=== PATIENT | female | born 1935 | race Caucasian/White ===

== ENCOUNTER → 2017-01-09 | Outpatient (CLI) | payer MEDICARE, BC ==
[2017-01-09 10:06] LABS: Basophils # (A) 0.1 k/uL (0-0.2); Basophils % (A) 1 %; CH 30.8; CHCM 33.3; Eosinophils # (A) 0.3 k/uL (0-0.7); Eosinophils % (A) 3 %; HCT 38.7 % (34.0-46.0); HDW 2.43; HGB 12.5 gm/dL (11.4-16.0); Luc # (Auto) 0.25; Luc % (Auto) 3; Lymphocytes % (A) 35 %; MCHC 32.3 g/dL (31.0-37.0); MCV 92.8 fL (80.0-100.0); Mean Platelet Volume 6.6; Monocytes # (A) 0.6 k/uL (0-1.0); Monocytes % (A) 7 %; Neutrophils # (A) 4.6 k/uL (1.3-7.7); Neutrophils % (A) 52 %; RBC 4.17 m/uL (3.80-5.40); WBC 8.8 k/uL (3.8-10.6); WBC (Perox) 8.71
[2017-01-09 10:24] LABS: ALT 28 U/L (9-52); AST 30 U/L (14-36); Alkaline Phosphatase 97 U/L (38-126); Anion Gap 9 mmol/L; Blood Urea Nitrogen 17 mg/dL (7-17); Calcium 9.3 mg/dL (8.4-10.2); Carbon Dioxide 31 mmol/L (22-30); Chloride 95 mmol/L (98-107); Cholesterol 191 mg/dL (<200); Glucose 102 mg/dL (74-99); HDL Cholesterol 38 mg/dL (40-60); Non-African American GFR(MDRD) 54 (>60 ml/min/1.73 sqM); Potassium 3.4 mmol/L (3.5-5.1); Sodium 135 mmol/L (137-145); Total Bilirubin 0.7 mg/dL (0.2-1.3); Total Protein 7.2 g/dL (6.3-8.2); Triglycerides 122 mg/dL (<150)
[2017-01-09 12:03] LABS: Hemoglobin A1C 6.1 % (4.2-6.1)
== END | disposition home or self-care (01) ==
LOC: LABWHC1 09:13
PROVIDERS: ATTEND Internal Medicine Critical Care Medicine
DX: E78.5 Hyperlipidemia, unspecified (principal); E11.9 Type 2 diabetes mellitus without complications; J44.9 Chronic obstructive pulmonary disease, unspecified; I10 Essential (primary) hypertension; E03.9 Hypothyroidism, unspecified
CPT/HCPCS: 36415; 80053; 80061; 82306; 83036; 84439; 84443; 85025

== ENCOUNTER 2017-10-26 03:31 | Inpatient (IN) | payer MEDICARE, BC ==
--- NOTE | 2017-10-26 03:37 | ED ---
General Adult HPI - General Stated complaint: Hypoglycemia/Fall Time Seen by Provider: 10/26/17 03:35 Source: RN notes reviewed, old records reviewed - History of Present Illness Initial comments: This is a 81-year-old female to the ER for evaluation of low blood sugar. Patient's brought in for evaluation by EMS secondary 0.1 foot. Patient has history of diabetes on insulin. No oral hypo-glycemic. Patient states she's been feeling fine today nausea vomiting diarrhea no chest pain or shortness of breath. Patient states she did eat today is normal. Patient did pull her life alert after falling secondary low blood sugar. Patient on EMS arrival had low blood sugar did improve with glucose replacement. Patient is time is no complaints - Related Data Home Medications Medication Instructions Recorded Confirmed Aspirin 81 mg PO DAILY 10/26/17 10/26/17 Atenolol 100 mg PO DAILY 10/26/17 10/26/17 Cholecalciferol [Vitamin D3] 3,000 unit PO DAILY 10/26/17 10/26/17 Furosemide [Lasix] 20 mg PO DAILY 10/26/17 10/26/17 Insulin NPH Hum/Reg Insulin Hm 55 unit SQ BID 10/26/17 10/26/17 [NovoLIN 70-30 100 UNIT/ML VIAL] Isosorbide Mononitrate [Isosorbide 30 mg PO DAILY 10/26/17 10/26/17 Mononitrate ER] Levothyroxine Sodium [Synthroid] 125 mcg PO DAILY 10/26/17 10/26/17 Potassium Chloride [Klor-Con 20] 20 meq PO DAILY 10/26/17 10/26/17 Allergies Allergy/AdvReac Type Severity Reaction Status Date / Time Penicillins Allergy Unknown Verified 10/26/17 03:47 morphine AdvReac Hallucinati Verified 10/26/17 03:47 ons Review of Systems ROS Statement: Those systems with pertinent positive or pertinent negative responses have been documented in the HPI. ROS Other: All systems not noted in ROS Statement are negative. General Exam General appearance: alert, in no apparent distress Head exam: Present: atraumatic, normocephalic, normal inspection Eye exam: Present: normal appearance, PERRL, EOMI. Absent: scleral icterus, conjunctival injection, periorbital swelling ENT exam: Present: normal exam, mucous membranes moist Neck exam: Present: normal inspection. Absent: tenderness, meningismus, lymphadenopathy Respiratory exam: Present: normal lung sounds bilaterally. Absent: respiratory distress, wheezes, rales, rhonchi, stridor Cardiovascular Exam: Present: regular rate, normal rhythm, normal heart sounds. Absent: systolic murmur, diastolic murmur, rubs, gallop, clicks GI/Abdominal exam: Present: soft, normal bowel sounds. Absent: distended, tenderness, guarding, rebound, rigid Extremities exam: Present: normal inspection, full ROM, normal capillary refill. Absent: tenderness, pedal edema, joint swelling, calf tenderness Back exam: Present: normal inspection Neurological exam: Present: alert, oriented X3, CN II-XII intact Psychiatric exam: Present: normal affect, normal mood Skin exam: Present: warm, dry, intact, normal color. Absent: rash Course Vital Signs 10/26/17 03:38 Temperature 98.4 F Pulse Rate 57 L Respiratory 18 Rate Blood Pressure 175/77 O2 Sat by Pulse 97 Oximetry - Reevaluation(s) Reevaluation #1: 10/26/17 03:36 Recheck blood sugar 64, patient given oral intake, sugar, juice, sandwich Reevaluation #2: 10/26/17 04:28 Patient remains awake and alert, is able to eat here in the emergency room EKG Findings - EKG Comments: EKG Findings:: EKG shows normal sinus MRSA 5, [place] 2, QRS 86, QTc 417 Medical Decision Making - Medical Decision Making 82 female the ER status post fall secondary to hypoglycemia. Head injury. CT negative. Patient is able to eat, blood sugar is improved, patient will be discharged - Lab Data Lab Results 10/26/17 Range/Units 03:34 POC Glucose (mg/dL) 64 L (75-99) mg/dL POC Glu Product Marketing Executive ID Cathleen Lara - Radiology Data Radiology results: report reviewed (CT brain C-spine x-ray hip are negative for traumatic injury), image reviewed Disposition Clinical Impression: Hypoglycemia, Fall, Head injury Disposition: HOME SELF-CARE Condition: Good Instructions: Hypoglycemia in a Person with Diabetes (ED), Head Injury (ED) Referrals: Neymar Mcgill DO [Primary Care Provider] - 1-2 days
[2017-10-26 03:55] LABS: Glucose,Whole Blood 64 mg/dL (75-99)
[2017-10-26 04:31] LABS: Glucose,Whole Blood 80 mg/dL (75-99)
--- NOTE | 2017-10-26 04:58 | CT ---
EXAM: CT Head Without Intravenous Contrast CLINICAL HISTORY: Status post fall with trauma to the back of the head. Reason: pain TECHNIQUE: Axial computed tomography images of the head/brain without intravenous contrast. DLP is 1167.70 mGy-cm. This CT exam was performed using one or more of the following dose reduction techniques: automated exposure control, adjustment of the mA and/or kV according to patient size, and/or use of iterative reconstruction technique. COMPARISON: Intracranial MRA 04/29/2014. FINDINGS: Brain: Age related atrophic changes are seen. Patchy and confluent areas of decreased attenuation are seen involving the bilateral periventricular and subcortical white matter consistent with microangiopathy, similar to prior study. No hemorrhage. Ventricles: Unremarkable. No ventriculomegaly. Bones/joints: Hyperostosis frontalis interna is noted. No acute fracture. Soft tissues: Unremarkable. Sinuses: Chronic left maxillary sinusitis is suggested. Mastoid air cells: Unremarkable as visualized. No mastoid effusion. IMPRESSION: 1. No ICH, mass effect or edema. No skull fracture. 2. 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 3. Chronic left maxillary sinusitis suggested. EXAM: CT Cervical Spine Without Intravenous Contrast CLINICAL HISTORY: Status post fall with trauma to the back of the head. TECHNIQUE: Axial computed tomography images of the cervical spine without intravenous contrast. CTDI is mGy and DLP is 703.20 mGy-cm. This CT exam was performed using one or more of the following dose reduction techniques: automated exposure control, adjustment of the mA and/or kV according to patient size, and/or use of iterative reconstruction technique. COMPARISON: No relevant prior studies available. 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 Note is made of multilevel cervical spondylosis with varying degrees of central canal and foramina stenoses, most notable at C4-C5, C5-C6, C6-C7, and C7-T1. No acute fracture. Discs/spinal canal/neural foramina: See above. Soft tissues: No evidence of prevertebral soft tissue swelling. Vasculature: Left retropharyngeal carotid artery is noted. Esophagus: Aerated debris seen within the proximal esophagus raising concern for impending aspiration. Lung apices: Minimal pulmonary edema may be present. Other findings: Anemia is suggested. IMPRESSION: 1. No evidence of acute fracture or traumatic malalignment. 2. Cervical spondylosis with varying degrees of central canal and foramina stenoses. MRI of the cervical spine may be obtained for further evaluation, if clinically indicated. 3. Aerated debris within the proximal esophagus raising concern for impending aspiration.
--- NOTE | 2017-10-26 05:07 | XR ---
EXAM: XR Left Hip With Pelvis When Performed, 2 or 3 Views CLINICAL HISTORY: Fall TECHNIQUE: Two or three views of the left hip, with pelvis when performed. COMPARISON: No relevant prior studies available. FINDINGS: Bones/joints: Subtle jagged lucency is seen in the subcapital left femoral neck, raising concern for a nondisplaced subcapital hip fracture. Mild/moderate narrowing of both femoroacetabular joints with bony productive changes suggesting osteoarthropathy. No evidence of dislocation. Soft tissues: Unremarkable. IMPRESSION: Subtle jagged lucency in the subcapital left femoral neck, raising concern for a nondisplaced subcapital left hip fracture. CT of the left hip recommended for further evaluation, if clinically indicated.
[2017-10-26 05:23] LABS: Glucose,Whole Blood 122 mg/dL (75-99)
[2017-10-26] MEDS ORDERED: LABETALOL 5 MG/ML VIAL MDV IVP STA (05:32)
[2017-10-26] MEDS ORDERED: cloNIDine HCL 0.2 MG TAB PO STA (05:48)
--- NOTE | 2017-10-26 06:31 | ED ---
Medical Decision Making - Medical Decision Making 82 female the ER status post fall. Patient having continued pain prior to discharge, patient's left hip x-ray does show possible lucency regarding fracture, since patient is unable to ambulate we'll get CAT scan to confirm if there is underlying fracture or not. (Dawson Howard) Patient was endorsed to me at our shift change pending CAT scan evaluation and results. CAT scan shows no acute findings of fracture. The x-ray of the foot does however show a fracture of the proximal third toe. Patient was still unable weight-bear patient will be admitted I did discuss the case with Dr. Miller. Patient will be admitted with orthopedic and neurological consultation. I did discuss this with the patient and family members or present. (Neymar Burgos ) - Lab Data Lab Results 10/26/17 10/26/17 10/26/17 Range/Units 03:34 04:29 05:11 POC Glucose (mg/dL) 64 L 80 122 H (75-99) mg/dL POC Glu Rn Pain Management Cathleen Roth, Cathleen Pedersen Disposition Clinical Impression: Hypoglycemia, Fall, Head injury, Failure to thrive, Toe fracture, left Disposition: ADMITTED IP TO THIS HOSP Condition: Stable Instructions: Hypoglycemia in a Person with Diabetes (ED), Head Injury (ED)
--- NOTE | 2017-10-26 06:55 | XR ---
EXAM: XR Left Foot Complete, 3 or More Views CLINICAL HISTORY: Pain after fall. TECHNIQUE: Frontal, lateral and oblique views of the left foot. COMPARISON: No relevant prior studies available. FINDINGS: Bones/joints: Acute minimally displaced fracture involving the base of the third proximal phalanx extending to the articular surface. Probable chronic deformity of the distal fourth metatarsal bone. Acute fracture cannot be definitively excluded. Probable small os trigonum. Os navicularis is noted. Small calcaneal spur seen. Posterior calcaneal spur is also noted. Osteopenia suggested. No dislocation. Soft tissues: Mild diffuse soft tissue swelling is seen overlying the foot. No radiopaque foreign body. IMPRESSION: 1. Acute minimally displaced fracture involving the base of the third proximal phalanx extending to the articular surface. 2. Probable chronic deformity of the distal fourth metatarsal bone. Acute fracture cannot be definitively excluded. Correlate with point tenderness.
--- NOTE | 2017-10-26 06:58 | XR ---
EXAM: XR Left Tibia and Fibula, 2 Views CLINICAL HISTORY: Pain after fall. TECHNIQUE: Frontal and lateral views of the left tibia and fibula. COMPARISON: No relevant prior studies available. FINDINGS: Bones/joints: Chronic fracture involving the proximal fibula. No dislocation. Soft tissues: Mild diffuse soft tissue swelling. No radiopaque foreign body. Vasculature: Mild/moderate vascular calcifications. IMPRESSION: No radiographic evidence of acute osseous injury.
--- NOTE | 2017-10-26 08:36 | CT ---
EXAMINATION TYPE: CT hip LT wo con DATE OF EXAM: 10/26/2017 COMPARISON: NONE HISTORY: Hypoglycemia/Fall CT DLP: 801 mGycm Automated exposure control for dose reduction was used. FINDINGS: There is atheromatous calcification of the arterial tree. Visualized soft tissues are other fink normal. There is degenerative disc disease and marked facet arthropathy in the lower lumbar spine. There is m ild degenerative change in the symphysis pubis. No acute fracture is seen. Hip joint is reasonably we ll-maintained. IMPRESSION: 1. NO ACUTE OSSEOUS LESION. 2. DEGENERATIVE CHANGE.
[2017-10-26] MEDS ORDERED: NALOXONE 0.4 MG/ML 1 ML VIAL IV PRN (10:39)
[2017-10-26] MEDS ORDERED: SODIUM CHLORIDE 0.9% 1,000 ML IV SCH (10:45)
[2017-10-26 11:39] VITALS: BMI 33.0
[2017-10-26 11:41] LABS: Glucose,Whole Blood 194 mg/dL (75-99)
[2017-10-26] MEDS: INSULIN ASPART 100 UNIT/ML 1 ML 10 ML VIAL SQ SCH ×3 (12:37→21:26)
--- NOTE | 2017-10-26 17:19 | P.CNNES ---
History of Present Illness Consult date: 10/26/17 Requesting physician: Magalys Miller Reason for Consult: Sciatica History of Present Illness: Patient is a pleasant 82-year-old female who is being evaluated by the neurology service on 10/26/2017 per the request of Dr. Valero for sciatica. Patient has a history of chronic low back pain with lumbar disc disease. Patient has history of diabetes on insulin. Patient states her blood sugar fell low at home and caused her to fall. Patient has life alert at home and she used it to alert the EMS. Patient's glucose was 64 on admission. Patient also reports hurting her left leg and hip in the fall. Patient had x-ray of the left hip and pelvis which showed questionable left femoral neck fracture. Patient had CT of the hip done which showed marked facet arthropathy in the lower lumbar spine but no acute changes. Patient had x-ray of the foot done which showed displaced fracture involving third toe of the left foot. Orthopedics has been consulted. CT of the head and neck were done due to fall. CT of the brain shows age-related atrophic changes. CT of the brain without any acute process. CT of the cervical spine shows no acute process but does show cervical spondylosis and foraminal stenosis. At the time of my evaluation , patient is resting comfortably in bed and appears to be in no acute distress. Review of Systems REVIEW OF SYSTEMS: Otherwise unremarkable and noncontributory. Past Medical History Past Medical History: Asthma, Diabetes Mellitus, Rheumatoid Arthritis (RA), Thyroid Disorder History of Any Multi-Drug Resistant Organisms: None Reported Past Surgical History: Bladder Surgery, Cholecystectomy, Hysterectomy Past Psychological History: No Psychological Hx Reported Smoking Status: Never smoker Past Alcohol Use History: Unable to Obtain Past Drug Use History: None Reported Medications and Allergies Home Medications Medication Instructions Recorded Confirmed Type Aspirin 81 mg PO DAILY 10/26/17 10/26/17 History Atenolol 100 mg PO DAILY 10/26/17 10/26/17 History Cholecalciferol [Vitamin D3] 3,000 unit PO DAILY 10/26/17 10/26/17 History Cyclobenzaprine [Flexeril] 10 mg PO TID 10/26/17 10/26/17 History Furosemide [Lasix] 20 mg PO DAILY 10/26/17 10/26/17 History Insulin NPH Hum/Reg Insulin Hm 55 unit SQ BID 10/26/17 10/26/17 History [NovoLIN 70-30 100 UNIT/ML VIAL] Isosorbide Mononitrate [Isosorbide 30 mg PO DAILY 10/26/17 10/26/17 History Mononitrate ER] Levothyroxine Sodium [Synthroid] 125 mcg PO DAILY 10/26/17 10/26/17 History Meloxicam [Mobic] 15 mg PO DAILY 10/26/17 10/26/17 History Potassium Chloride [Klor-Con 20] 20 meq PO DAILY 10/26/17 10/26/17 History aMILoride-HCTZ 5-50 mg [Moduretic 1 tab PO DAILY 10/26/17 10/26/17 History 5-50] Allergies Allergy/AdvReac Type Severity Reaction Status Date / Time Penicillins Allergy Unknown Verified 10/26/17 11:40 morphine AdvReac Hallucinati Verified 10/26/17 11:08 ons Physical Examination - Vital Signs Vital Signs: Vital Signs Temp Pulse Pulse Resp BP BP Pulse Ox 10/26/17 15:00 97.5 F L 60 16 154/72 95 10/26/17 11:15 97.4 F L 60 16 155/66 98 10/26/17 11:05 98.6 F 69 18 153/79 97 10/26/17 11:04 97.4 F L 60 20 155/68 10/26/17 08:16 61 17 169/69 96 10/26/17 08:10 79 18 149/77 96 10/26/17 06:04 50 L 18 185/77 100 10/26/17 05:42 55 L 18 194/77 96 10/26/17 03:38 98.4 F 57 L 18 175/77 97 Intake and Output 10/26/17 10/26/17 10/26/17 06:59 14:59 22:59 Intake Total 940 Balance 940 Intake: Intake, IV Titration 160 Amount Sodium Chloride 0.9% 1, 160 000 ml @ 80 mls/hr IV . [id number] [facility] Rx#:[id number] Oral 780 Other: Voiding Method Bedside Commode Bedpan # Voids 1 Weight 99.79 kg 95.708 kg Patient Weight 10/27/17 06:59 Weight 95.708 kg PHYSICAL EXAM: GENERAL APPEARANCE: Patient is a well-developed, female who appears to be in no acute distress. HEENT: Normocephalic, atraumatic, no facial asymmetry is seen. Neck is supple with no masses felt. CARDIOVASCULAR: Regular rate and rhythm. ABDOMEN: Nontender, nondistended. EXTREMITIES: Show no edema or clubbing. NEUROLOGICAL EXAM: Patient is awake, alert, and oriented 3. Speech and language are normal. Strength is 4/5 in left lower extremity and full in all other extremities. Sensory deficit to left lower extremity to light touch. No facial asymmetry on cranial nerve testing. No tremors or seizure-like activity noted. Results - Laboratory Findings Abnormal Lab Findings: Abnormal Labs 10/26/17 10/26/17 10/26/17 03:34 05:11 11:29 POC Glucose (mg/dL) 64 L 122 H 194 H Assessment and Plan Plan: Impression: 1. Sciatica 2. Diabetes mellitus 3. Fall 4. Left third toe fracture 5. Lumbago 6. Cervicalgia Recommendation: Patient has symptoms of left SI joint pain as well as left sciatic nerve distribution pain. I recommend a nonsteroidal anti-inflammatory drug such as Mobic 15 mg by mouth daily and to start on a neuropathic drug such as Neurontin 300 mg by mouth daily at bedtime. Neurontin can be titrated up to 3 times a day dosing. Titration can be achieved as an outpatient. Patient can follow up in the clinic for NCS/EMG testing. Patient may benefit from SI joint injection as an outpatient. Continue current management per medicine and orthopedics. No further neurological workup needed at this time. I will continue to follow with you on an as-needed basis. Feel free to call with any questions or concerns. Thank you for allowing me to participate in the care of your patient. Feel free to call with any questions or concerns. I performed an examination of the patient and discussed the management with the OYSTER SHUCKER. I have reviewed the OYSTER SHUCKER notes and agree with the findings and plan of care.
[2017-10-26] MEDS ORDERED: INSULIN NPH/REG INSULIN 70/30 300 UNIT/3 ML VIAL SQ SCH (17:30)
[2017-10-26 17:33] LABS: Glucose,Whole Blood 227 mg/dL (75-99)
[2017-10-26 17:46] LABS: Basophils % (A) 1 %; Eosinophils # (A) 0.2 k/uL (0-0.7); Eosinophils % (A) 2 %; HCT 35.7 % (34.0-46.0); HGB 11.4 gm/dL (11.4-16.0); Lymphocytes % (A) 22 %; MCH 29.9 pg (25.0-35.0); MCHC 32.1 g/dL (31.0-37.0); MCV 93.4 fL (80.0-100.0); Mean Platelet Volume 6.4; Monocytes # (A) 0.5 k/uL (0-1.0); Monocytes % (A) 6 %; Neutrophils # (A) 6.3 k/uL (1.3-7.7); Neutrophils % (A) 69 %; Platelet Count 313 k/uL (150-450); RBC 3.82 m/uL (3.80-5.40); RDW 12.7 % (11.5-15.5); WBC 9.2 k/uL (3.8-10.6)
[2017-10-26] MEDS: INSULIN NPH/REG INSULIN 70/30 300 UNIT/3 ML VIAL SQ SCH (17:51)
[2017-10-26 17:59] LABS: ALT 26 U/L (9-52); AST 32 U/L (14-36); Albumin 3.5 g/dL (3.5-5.0); Alkaline Phosphatase 105 U/L (38-126); Anion Gap 7 mmol/L; Blood Urea Nitrogen 16 mg/dL (7-17); Calcium 9.1 mg/dL (8.4-10.2); Carbon Dioxide 33 mmol/L (22-30); Chloride 91 mmol/L (98-107); Glucose 206 mg/dL (74-99); Magnesium 1.7 mg/dL (1.6-2.3); Potassium 3.4 mmol/L (3.5-5.1); Sodium 131 mmol/L (137-145); Total Bilirubin 0.8 mg/dL (0.2-1.3); Total Protein 6.5 g/dL (6.3-8.2)
--- NOTE | 2017-10-26 18:01 | HP ---
HISTORY AND PHYSICAL DATE OF SERVICE: 10/26/2017 CHIEF COMPLAINTS: Fall and apparent hypoglycemia. HISTORY OF PRESENT ILLNESS: This 82-year-old woman with a past medical history of multiple medical problems, including diabetes mellitus, asthma, hypertension, rheumatoid arthritis had apparently passed out. The patient does not remember the antecedents. EMS came and it was found that the patient had low blood sugar. Patient admitted for further evaluation of blood sugars and glucose administered. There is no history of fever, rigors. No history of headache, loss conscious, seizures. After admission multiple x-rays were done. The foot x-ray shows acute minimally displaced fracture involving the base of the 3rd proximal toe, proximal phalanx extending to the articular surface and chronic deformity of the distal 4th metatarsal. PAST MEDICAL HISTORY: History of diabetes mellitus type 2, history of asthma, history of rheumatoid arthritis, hypothyroidism, bladder surgery, cholecystectomy. MEDICATIONS PRIOR TO ADMISSION: Include: 1. Flexeril 10 mg p.o. t.i.d. 2. Moduretic 1 tab p.o. daily. 3. Klor-Con 20 mg p.o. daily. 4. Mobic 15 mg p.o. daily. 5. Synthroid 120 mcg p.o. daily. 6. Imdur 30 mg p.o. daily. 7. Novolin 70/30, 55 units subcu b.i.d. 8. Lasix 20 mg daily. 9. Vitamin D3 3000 units. 10.Atenolol 100 mg p.o. daily. 11.Aspirin 81 mg daily. ALLERGIES: PENICILLIN, MORPHINE. FAMILY HISTORY: No history of heart disease, strokes in the family. SOCIAL HISTORY: No history of alcohol intake. REVIEW OF SYSTEMS: ENT: Diminished hearing, diminished vision. CARDIOVASCULAR: No angina, palpitations. RESPIRATORY: As mentioned earlier. GI: No nausea or vomiting. : No dysuria. NERVOUS: As mentioned earlier. ALLERGY/IMMUNOLOGY: No asthma or hay fever. MUSCULOSKELETAL: As mentioned earlier. HEMATOLOGY/ONCOLOGY: No history of anemia. ENDOCRINE: Diabetes mellitus. CONSTITUTIONAL: As mentioned earlier. DERMATOLOGY: Negative. RHEUMATOLOGY: Negative. PSYCHIATRY: As mentioned earlier. PHYSICAL EXAM: The patient is alert, oriented x3. Pulse of 60, blood pressure 150/60, respirations 16, temperature 97.4, pulse ox 98% room air. HEENT: Conjunctivae normal. Oral mucosa moist. NECK: No jugular venous distention. No carotid bruits. No lymph node enlargement. CARDIOVASCULAR: S1, S2 muffled. RESPIRATORY: Breath sounds diminished in the bases. A few scattered rhonchi. No crackles. ABDOMEN: Soft, nontender. No mass palpable. LEGS: No edema. No swelling. NERVOUS SYSTEM: Higher functions as mentioned earlier. Moves all 4 limbs. No focal motor or sensory deficits. LYMPHATIC: No lymphadenopathy in neck or axillae. SKIN: No ulcer, rash or bleeding. LABS: At this time shows the glucose 64, 80, 122, 194. Other labs awaited. ASSESSMENT: 1. Syncope possibly secondary to hypoglycemia. 2. Hypoglycemia. 3. Fall with acute minimally displaced fracture involving the base of the 3rd phalanx extending to the articular structure. 4. Deformity of the 4th metatarsal bone. 5. History of diabetes mellitus. 6. History of asthma. 7. History of rheumatoid arthritis. 8. Hypothyroidism. 9. History of cholecystectomy. RECOMMENDATIONS AND DISCUSSION: In this 82-year-old who presented with multiple medical problems, will monitor the patient closely, continue to monitor for orthostatic hypotension. Also recommend monitoring blood sugars closely. The patient is hypoglycemic and the NPH dose will be cut to 50 b.i.d. and continue to monitor. Guarded prognosis. Further recommendations. See orders for further details. MMODL / IJN: [id number] /
[2017-10-26 19:38] LABS: Appearance,Urine Clear (Clear); Bacteria,Urine Rare /hpf; Bilirubin,Urine Negative (Negative); Blood,Urine Negative (Negative); Color,Urine Yellow; Glucose,Urine (UA) Negative (Negative); Ketones,Urine Negative (Negative); Leukocyte Esterase,Urine Moderate (Negative); Nitrite,Urine Negative (Negative); Protein,Urine Trace (Negative); RBC,Urine 2 /hpf (0-5); Squamous Epithelial Cell,Urine 1 /hpf (0-4); Urobilinogen,Urine <2.0 mg/dL (<2.0); WBC,Urine 10 /hpf (0-5)
[2017-10-26 20:20] LABS: Glucose,Whole Blood 203 mg/dL (75-99)
[2017-10-26] MEDS: CYCLOBENZAPRINE 10 MG TAB PO SCH (21:26)
[2017-10-27] MEDS ORDERED: ALBUTEROL NEBULIZED 2.5 MG/3 ML INHALATION PRN (00:01)
[2017-10-27 02:34] LABS: Glucose,Whole Blood 63 mg/dL (75-99)
[2017-10-27 02:34] LABS: Glucose,Whole Blood 82 mg/dL (75-99)
[2017-10-27] MEDS ORDERED: LEVOTHYROXINE 125 MCG TAB PO SCH (06:30)
[2017-10-27 07:10] LABS: Glucose,Whole Blood 103 mg/dL (75-99)
[2017-10-27] MEDS: INSULIN ASPART 100 UNIT/ML 1 ML 10 ML VIAL SQ SCH ×2 (07:26→12:42)
[2017-10-27] MEDS: INSULIN NPH/REG INSULIN 70/30 300 UNIT/3 ML VIAL SQ SCH (07:28)
[2017-10-27 07:35] LABS: Basophils # (A) 0.1 k/uL (0-0.2); Basophils % (A) 1 %; Eosinophils # (A) 0.4 k/uL (0-0.7); Eosinophils % (A) 5 %; HCT 32.4 % (34.0-46.0); HGB 10.4 gm/dL (11.4-16.0); Lymphocytes # (A) 2.4 k/uL (1.0-4.8); Lymphocytes % (A) 32 %; MCHC 32.1 g/dL (31.0-37.0); MCV 96.4 fL (80.0-100.0); Mean Platelet Volume 6.6; Monocytes # (A) 0.6 k/uL (0-1.0); Monocytes % (A) 8 %; Neutrophils % (A) 52 %; Platelet Count 285 k/uL (150-450); RBC 3.36 m/uL (3.80-5.40); RDW 12.6 % (11.5-15.5); WBC 7.6 k/uL (3.8-10.6)
[2017-10-27 07:57] LABS: Anion Gap 10 mmol/L; Blood Urea Nitrogen 15 mg/dL (7-17); Carbon Dioxide 31 mmol/L (22-30); Chloride 93 mmol/L (98-107); Glucose 91 mg/dL (74-99); Potassium 3.5 mmol/L (3.5-5.1); Sodium 134 mmol/L (137-145)
--- NOTE | 2017-10-27 08:45 | P.CNOR ---
History of Present Illness - HPI Consult date: 10/27/17 History of present illness: This is an 82-year-old female was admitted after a fall. Patient states on 10/25/2017 she had a low blood sugar which caused her to pass out. Patient states when she regained consciousness she pressed her life alert button which alerted EMS and her daughter to come to her house. Patient states she thinks she was down for 3 hours. Patient complains of soreness to the left leg. Patient states she has not been up and walking yet. Patient states her left foot is the most sore. Patient does complain of soreness to the left arm, but patient states she can move the left arm without difficulty. Patient denies any groin pain and states the hip is sore but she is able to move it. Patient states she did hit her head, but was evaluated in the emergency room and a CT was negative. Patient states she lives alone. Patient denies any headache, visual changes, fever/chills, numbness, weakness, tingling, abdominal pain, shortness of breath or chest pain. Review of Systems See HPI. Past Medical History Past Medical History: Asthma, Diabetes Mellitus, Rheumatoid Arthritis (RA), Thyroid Disorder History of Any Multi-Drug Resistant Organisms: None Reported Past Surgical History: Bladder Surgery, Cholecystectomy, Hysterectomy Past Psychological History: No Psychological Hx Reported Smoking Status: Never smoker Past Alcohol Use History: Unable to Obtain Past Drug Use History: None Reported Medications and Allergies Home Medications Medication Instructions Recorded Confirmed Type Aspirin 81 mg PO DAILY 10/26/17 10/26/17 History Atenolol 100 mg PO DAILY 10/26/17 10/26/17 History Cholecalciferol [Vitamin D3] 3,000 unit PO DAILY 10/26/17 10/26/17 History Cyclobenzaprine [Flexeril] 10 mg PO TID 10/26/17 10/26/17 History Furosemide [Lasix] 20 mg PO DAILY 10/26/17 10/26/17 History Insulin NPH Hum/Reg Insulin Hm 55 unit SQ BID 10/26/17 10/26/17 History [NovoLIN 70-30 100 UNIT/ML VIAL] Isosorbide Mononitrate [Isosorbide 30 mg PO DAILY 10/26/17 10/26/17 History Mononitrate ER] Levothyroxine Sodium [Synthroid] 125 mcg PO DAILY 10/26/17 10/26/17 History Meloxicam [Mobic] 15 mg PO DAILY 10/26/17 10/26/17 History Potassium Chloride [Klor-Con 20] 20 meq PO DAILY 10/26/17 10/26/17 History aMILoride-HCTZ 5-50 mg [Moduretic 1 tab PO DAILY 10/26/17 10/26/17 History 5-50] Allergies Allergy/AdvReac Type Severity Reaction Status Date / Time Penicillins Allergy Unknown Verified 10/26/17 11:40 morphine AdvReac Hallucinati Verified 10/26/17 11:08 ons Physical Examination On exam patient is alert and oriented 3 and in no acute distress. Patient is able to flex the left lower extremity at the hip and knee without difficulty. There is no pain in the left hip with log roll of the left lower extremity. There is some tenderness to palpation to the outside of the left hip, medial aspect of the left knee, to the medial and lateral malleoli of the left ankle, and over the MTP joint of the third toe left foot. There is some ecchymosis to the top of the left foot, medial aspect of the left knee. Calf is soft and nontender to palpation. There is no tenderness to palpation of the left upper extremity. Patient is able to lift the left arm above her head without pain or difficulty. Patient has full range of motion of the left elbow, wrist and hand. There is no tenderness to palpation to the right upper extremity or right lower extremity. Sensation intact bilateral upper and lower extremities. Patient has good range of motion of the head and neck without pain or difficulty. Neurovascular status and circulatory status are intact. Results X-rays of the left hip and pelvis show no definite acute fracture or dislocation. CT of the left hip is negative for fracture. X-rays of the left tib-fib are negative for any acute fracture or dislocation of the left knee, left tib-fib and left ankle. X-rays of the left foot show #1. Acute minimally displaced fracture involving the base of the third proximal phalanx extending to the articular surface. #2 probable chronic deformity of the distal fourth metatarsal bone. Acute fracture cannot be definitively. Correlate with point tenderness. - Labs Labs: Abnormal Lab Results - Last 24 Hours (Table) 10/26/17 10/26/17 10/26/17 Range/Units 11:29 17:27 17:37 RBC (3.80-5.40) m/uL Hgb (11.4-16.0) gm/dL Hct (34.0-46.0) % Sodium 131 L (137-145) mmol/L Potassium 3.4 L (3.5-5.1) mmol/L Chloride 91 L (98-107) mmol/L Carbon Dioxide 33 H (22-30) mmol/L Glucose 206 H (74-99) mg/dL POC Glucose (mg/dL) 194 H 227 H (75-99) mg/dL Urine Protein (Negative) Ur Leukocyte Esterase (Negative) Urine WBC (0-5) /hpf Urine Bacteria (None) /hpf 10/26/17 10/26/17 10/27/17 Range/Units 19:10 20:08 02:00 RBC (3.80-5.40) m/uL Hgb (11.4-16.0) gm/dL Hct (34.0-46.0) % Sodium (137-145) mmol/L Potassium (3.5-5.1) mmol/L Chloride (98-107) mmol/L Carbon Dioxide (22-30) mmol/L Glucose (74-99) mg/dL POC Glucose (mg/dL) 203 H 63 L (75-99) mg/dL Urine Protein Trace H (Negative) Ur Leukocyte Esterase Moderate H (Negative) Urine WBC 10 H (0-5) /hpf Urine Bacteria Rare H (None) /hpf 10/27/17 10/27/17 10/27/17 Range/Units 06:37 06:37 07:06 RBC 3.36 L (3.80-5.40) m/uL Hgb 10.4 L (11.4-16.0) gm/dL Hct 32.4 L (34.0-46.0) % Sodium 134 L (137-145) mmol/L Potassium (3.5-5.1) mmol/L Chloride 93 L (98-107) mmol/L Carbon Dioxide 31 H (22-30) mmol/L Glucose (74-99) mg/dL POC Glucose (mg/dL) 103 H (75-99) mg/dL Urine Protein (Negative) Ur Leukocyte Esterase (Negative) Urine WBC (0-5) /hpf Urine Bacteria (None) /hpf Microbiology - Last 24 Hours (Table) 02/24/18 19:10 Urine Culture - Preliminary Urine,Clean Catch H & H 10/26/17 10/27/17 Range/Units 17:37 06:37 Hgb 11.4 10.4 L (11.4-16.0) gm/dL Hct 35.7 32.4 L (34.0-46.0) % Result Diagrams: 10/27/17 06:37 10/27/17 06:37 Assessment and Plan (1) Fall Current Visit: Yes Status: Acute Code(s): W19.XXXA - UNSPECIFIED FALL, INITIAL ENCOUNTER SNOMED Code(s): 3013915 (2) Toe fracture, left Current Visit: Yes Status: Acute Code(s): S92.912A - UNSP FRACTURE OF LEFT TOE(S), INIT FOR CLOS FX SNOMED Code(s): 41212230 (3) Contusion of left hip Current Visit: Yes Status: Acute Code(s): S70.02XA - CONTUSION OF LEFT HIP, INITIAL ENCOUNTER SNOMED Code(s): 61143824 (4) Contusion of left knee Current Visit: Yes Status: Acute Code(s): S80.02XA - CONTUSION OF LEFT KNEE , INITIAL ENCOUNTER SNOMED Code(s): 85817112 Plan: #1. Walking boot ordered for left lower extremity. May coty tape the second and third or third and fourth digits of the left foot as well if desired. #2. Weight bearing as tolerated with walking boot using a walker at all times. #3. Keep left lower extremity elevated and ice the left hip, knee and foot. #4. No surgical intervention planned at this time. Patient may follow up as an outpatient with [facility]. #5. We'll continue to follow the patient closely during her hospital stay.
[2017-10-27] MEDS ORDERED: ASPIRIN 81 MG PO SCH (09:00)
[2017-10-27] MEDS ORDERED: FUROSEMIDE 20 MG TAB PO SCH (09:00)
[2017-10-27] MEDS ORDERED: aMILoride-HCTZ 5-50 mg 1 EACH TAB PO SCH (09:00)
[2017-10-27] MEDS ORDERED: ATENOLOL 50 MG TAB PO SCH (09:00)
[2017-10-27] MEDS ORDERED: POTASSIUM CHLORIDE ER 20 MEQ TAB.ER PO SCH (09:00)
[2017-10-27] MEDS ORDERED: ISOSORBIDE MONONITRATE ER 30 MG TAB.ER.24H PO SCH (09:00)
[2017-10-27] MEDS: CYCLOBENZAPRINE 10 MG TAB PO SCH (09:19)
[2017-10-27 11:37] LABS: Glucose,Whole Blood 139 mg/dL (75-99)
[2017-10-27] MEDS ORDERED: CHOLECALCIFEROL 1,000 UNIT TAB PO SCH (12:00)
[2017-10-27 12:23] VITALS: BP 161/52; PULSE 54; RESP 18; TEMP 98.2
--- NOTE | 2017-10-28 09:55 | DS ---
DISCHARGE SUMMARY DATE OF SERVICE: 10/27/2017. FINAL DIAGNOSES: 1. Syncope possibly secondary to hypoglycemia. 2. Hypoglycemia. 3. Fall with acute minimally displaced fracture involving the base of the phalanx into the articular surface. 4. Deformity of the 4th metatarsal bone. 5. History of diabetes type 2. 6. History of asthma. 7. History of rheumatoid arthritis. 8. Hypothyroidism. 9. History of cholecystectomy. DISCHARGE DISPOSITION: The patient is being discharged in stable condition with guarded prognosis. HISTORY OF PRESENT ILLNESS: This 82-year-old woman with a past medical history of multiple medical problems , being followed by Dr. Mcgill in the outpatient setting was admitted with syncope, possibly hypoglycemia. Patient treated conservatively and improved significantly. Orthopedics saw the patient and recommended closely follow with [facility] in the outpatient setting. On exam, vitals are stable. Cardiovascular: S1, S2 muffled. Abdomen soft. Nervous system: No focal deficits. DISCHARGE INSTRUCTIONS: 1. Discharge diet cardiac diet. 2. Activity limited until followup. 3. Follow up with Dr. Mcgill in 2-3 days. 4. Follow up with Orthopedic surgery as mentioned earlier. 5. Visiting nurse was being arranged. MEDICATIONS ARE: As follows home medications are: 1. Tylenol 500 mg q.6h p.r.n. 2. Moduretic 1 p.o. daily. 3. Aspirin 81 mg. 4. Atenolol 5 mg p.o. daily. 5. Vitamin D3 3000 daily. 6. Flexeril 10 mg p.o. t.i.d. 7. Lasix 20 mg p.o. daily. 8. NovoLog a.c. and q.h.s. scale. 9. NPH 50 subcu b.i.d. 10.Imdur 30 mg p.o. daily. 11.Synthroid 100 mcg p.o. daily. 12.Mobic 15 mg p.o. daily. 13.Klor-Con 20 mEq p.o. daily. Once again, the patient is being discharged in stable condition with guarded prognosis. MMODL / IJN: [id number] / MTDD
== END 2017-10-27 13:47 | disposition home health service (06) | DRG 639 ==
LOC: EC 03:31 → 3SUR 10:40
PROVIDERS: ADMIT Internal Medicine; ATTEND Internal Medicine
DX: E11.649 Type 2 diabetes mellitus with hypoglycemia without coma (principal); S09.90XA Unspecified injury of head, initial encounter; M06.9 Rheumatoid arthritis, unspecified; M48.02 Spinal stenosis, cervical region; E03.9 Hypothyroidism, unspecified; I10 Essential (primary) hypertension; J45.909 Unspecified asthma, uncomplicated; M47.812 Spondylosis without myelopathy or radiculopathy, cervical region; M54.40 Lumbago with sciatica, unspecified side; R62.7 Adult failure to thrive; S70.02XA Contusion of left hip, initial encounter; S80.02XA Contusion of left knee, initial encounter; S92.502A Displaced unspecified fracture of left lesser toe(s), initial encounter for closed fracture; G89.29 Other chronic pain; M51.36 Other intervertebral disc degeneration, lumbar region; Z79.1 Long term (current) use of non-steroidal anti-inflammatories (NSAID); Z79.4 Long term (current) use of insulin; Z79.82 Long term (current) use of aspirin; Z79.899 Other long term (current) drug therapy; Z88.5 Allergy status to narcotic agent; Z88.0 Allergy status to penicillin; Z90.49 Acquired absence of other specified parts of digestive tract; Z90.710 Acquired absence of both cervix and uterus; W19.XXXA Unspecified fall, initial encounter; Y92.9 Unspecified place or not applicable
CPT/HCPCS: 36415; 70450; 72125; 73502; 80048; 80053; 81001; 83735; 85025; 87086; 93005; 99285

== ENCOUNTER → 2018-01-17 | Outpatient (CLI) | payer MEDICARE, BC ==
[2018-01-17 08:01] LABS: Basophils % (A) 0 %; Eosinophils % (A) 1 %; HCT 37.5 % (34.0-46.0); HGB 12.4 gm/dL (11.4-16.0); Lymphocytes # (A) 2.5 k/uL (1.0-4.8); Lymphocytes % (A) 31 %; MCH 29.9 pg (25.0-35.0); MCV 90.8 fL (80.0-100.0); Mean Platelet Volume 6.8; Monocytes # (A) 0.6 k/uL (0-1.0); Monocytes % (A) 8 %; Neutrophils # (A) 4.8 k/uL (1.3-7.7); Neutrophils % (A) 59 %; Platelet Count 357 k/uL (150-450); RBC 4.13 m/uL (3.80-5.40); RDW 12.5 % (11.5-15.5); WBC 8.2 k/uL (3.8-10.6)
[2018-01-17 08:15] LABS: Albumin 3.9 g/dL (3.5-5.0); Calcium 9.4 mg/dL (8.4-10.2); Potassium 3.7 mmol/L (3.5-5.1); Total Bilirubin 0.6 mg/dL (0.2-1.3)
[2018-01-17 08:32] LABS: T4, Free (Free Thyroxine) 1.74 ng/dL (0.78-2.19)
[2018-01-17 19:04] LABS: Hemoglobin A1C 7.3 % (4.0-6.0)
== END | disposition home or self-care (01) ==
LOC: LABWHC1 07:19
PROVIDERS: ATTEND Internal Medicine Critical Care Medicine
DX: E55.9 Vitamin D deficiency, unspecified (principal); E11.9 Type 2 diabetes mellitus without complications; E03.9 Hypothyroidism, unspecified; I10 Essential (primary) hypertension; J44.9 Chronic obstructive pulmonary disease, unspecified; E78.5 Hyperlipidemia, unspecified
CPT/HCPCS: 36415; 80053; 80061; 82306; 83036; 84439; 84443; 85025

== ENCOUNTER → 2018-07-21 | Outpatient (CLI) | payer MEDICARE, BC ==
[2018-07-21 19:09] LABS: Hemoglobin A1C 7.3 % (4.0-6.0)
== END | disposition home or self-care (01) ==
LOC: LABWHC1 07:59
PROVIDERS: ATTEND Internal Medicine Critical Care Medicine
DX: E11.40 Type 2 diabetes mellitus with diabetic neuropathy, unspecified (principal)
CPT/HCPCS: 36415; 82947; 83036

== ENCOUNTER → 2019-03-17 | Outpatient (CLI) | payer MEDICARE, BC ==
[2019-03-17 08:30] LABS: Basophils % (A) 0 %; Eosinophils # (A) 0.2 k/uL (0-0.7); Eosinophils % (A) 2 %; HGB 11.7 gm/dL (11.4-16.0); Lymphocytes # (A) 1.7 k/uL (1.0-4.8); Lymphocytes % (A) 19 %; MCH 31.1 pg (25.0-35.0); MCHC 33.3 g/dL (31.0-37.0); MCV 93.4 fL (80.0-100.0); Mean Platelet Volume 6.5; Monocytes # (A) 0.5 k/uL (0-1.0); Monocytes % (A) 6 %; Neutrophils # (A) 6.3 k/uL (1.3-7.7); Neutrophils % (A) 71 %; Platelet Count 305 k/uL (150-450); RBC 3.75 m/uL (3.80-5.40); RDW 12.6 % (11.5-15.5)
[2019-03-17 12:32] LABS: African American GFR (CKD) 59.5 (60.0-200.0); Albumin/Globulin Ratio 1.74 (1.60-3.17); Anion Gap 10.5 mmol/L (4.00-12.00); Calcium 9.3 mg/dL (8.7-10.3); Carbon Dioxide 31.5 mmol/L (21.6-31.8); Globulin 2.3 g/dL (1.6-3.3); LDL Cholesterol,Calculated 122.8 mg/dL (0.0-131.0); Potassium 3.4 mmol/L (3.5-5.5); Total Bilirubin 0.9 mg/dL (0.2-1.2); Total Protein 6.3 g/dL (6.2-8.2); VLDL Calculation 18.2 mg/dL (5.00-40.00)
[2019-03-17 12:39] LABS: T4, Free (Free Thyroxine) 1.5 ng/dL (0.80-1.80)
[2019-03-17 14:35] LABS: Hemoglobin A1C 6.5 % (4.0-6.0)
== END | disposition home or self-care (01) ==
LOC: LABWHC1 07:44
PROVIDERS: ATTEND Internal Medicine Critical Care Medicine
DX: E55.9 Vitamin D deficiency, unspecified (principal); E78.5 Hyperlipidemia, unspecified; E03.9 Hypothyroidism, unspecified; E11.9 Type 2 diabetes mellitus without complications; I10 Essential (primary) hypertension
CPT/HCPCS: 36415; 80053; 80061; 82306; 83036; 84439; 84443; 85025

== ENCOUNTER 2019-05-17 07:39 | Inpatient (IN) | payer MEDICARE, BC ==
--- NOTE | 2019-05-17 07:58 | ED ---
Lower Extremity Injury HPI - General Chief Complaint: Extremity Injury, Lower Stated Complaint: fall/foot pain Time Seen by Provider: 05/17/19 07:39 Source: patient, EMS, RN notes reviewed Mode of arrival: EMS Limitations: no limitations - History of Present Illness Initial Comments: This is a pleasant 84-year-old female who presents by EMS with complaints of right lower extremity pain specifically the ball of her foot after apparently falling out of bed last night. She states she may have also had right-sided face she has chronic pain but denies any pain never head neck back or other extremities other than her usual pain she is complaining of pain to the right foot and ankle. She was demonstrating apparently pain with any type of ambulation. No other complaints at this time. Headaches dizziness blurry vision loss of function to the upper or lower extremities reported. MD Complaint: ankle injury, foot injury, fall - Related Data Home Medications Medication Instructions Recorded Confirmed Aspirin 81 mg PO DAILY 10/26/17 05/17/19 Atenolol 100 mg PO DAILY 10/26/17 05/17/19 Cholecalciferol [Vitamin D3 (25 1,000 unit PO TID 10/26/17 05/17/19 Mcg = 1000 Iu)] Furosemide [Lasix] 20 mg PO DAILY 10/26/17 05/17/19 Insulin NPH Hum/Reg Insulin Hm 65 unit SQ BID 10/26/17 05/17/19 [NovoLIN 70-30 100 UNIT/ML VIAL] Isosorbide Mononitrate [Isosorbide 30 mg PO DAILY 10/26/17 05/17/19 Mononitrate ER] Levothyroxine Sodium [Synthroid] 125 mcg PO DAILY 10/26/17 05/17/19 Potassium Chloride [Klor-Con 20] 20 meq PO DAILY 10/26/17 05/17/19 aMILoride-HCTZ 5-50 mg [Moduretic 1 tab PO DAILY 10/26/17 05/17/19 5-50] Ibuprofen [Motrin] 800 mg PO Q6H PRN 05/17/19 05/17/19 Vit C/E/Zn/Coppr/Lutein/Zeaxan 1 cap PO BID 05/17/19 05/17/19 [Preservision Areds 2 Softgel] Allergies Allergy/AdvReac Type Severity Reaction Status Date / Time Penicillins Allergy Unknown Verified 05/17/19 09:04 morphine AdvReac Hallucinati Verified 05/17/19 09:04 ons Review of Systems ROS Statement: Those systems with pertinent positive or pertinent negative responses have been documented in the HPI. ROS Other: All systems not noted in ROS Statement are negative. Past Medical History Past Medical History: Asthma, Diabetes Mellitus, Hypertension, Rheumatoid Arthritis (RA), Thyroid Disorder History of Any Multi-Drug Resistant Organisms: None Reported Past Surgical History: Bladder Surgery, Cholecystectomy, Hysterectomy Additional Past Surgical History / Comment(s): thyroid removed Past Psychological History: No Psychological Hx Reported Smoking Status: Never smoker Past Alcohol Use History: Unable to Obtain Past Drug Use History: None Reported General Exam - General Exam Comments Initial Comments: This is a well-developed well-nourished awake alert oriented 3 female demonstrate a Francesco Coma Scale of 15 Limitations: no limitations General appearance: alert, in no apparent distress Head exam: Present: atraumatic, normocephalic, normal inspection Eye exam: Present: normal appearance, PERRL, EOMI. Absent: scleral icterus, conjunctival injection, periorbital swelling ENT exam: Present: normal exam, mucous membranes moist Neck exam: Present: normal inspection, full ROM, other (No stridor JVD or bruits). Absent: tenderness, meningismus, lymphadenopathy Respiratory exam: Present: normal lung sounds bilaterally. Absent: respiratory distress, wheezes, rales, rhonchi, stridor Cardiovascular Exam: Present: normal rhythm, bradycardia, normal heart sounds. Absent: systolic murmur, diastolic murmur, rubs, gallop, clicks GI/Abdominal exam: Present: soft, normal bowel sounds. Absent: distended, tenderness, guarding, rebound, rigid Extremities exam: Present: full ROM, tenderness, normal capillary refill, other (A splint was applied to the right foot and ankle by EMS and did undo this. Patient does demonstrate tenderness palpation of the first metatarsophalangeal joint some mild ankle pain also proximal fibula pain in the right to palpation no step-off or crepitation noted no answer compromise noted. Capillary refill less than 2 seconds.). Absent: pedal edema, joint swelling, calf tenderness Back exam: Present: normal inspection Neurological exam: Present: alert, oriented X3, CN II-XII intact Psychiatric exam: Present: normal affect, normal mood Skin exam: Present: warm, dry, intact, normal color. Absent: rash Course Vital Signs 05/17/19 05/17/19 07:42 08:33 Temperature 98.5 F Pulse Rate 50 L 65 Respiratory 18 16 Rate Blood Pressure 176/102 167/61 O2 Sat by Pulse 97 95 Oximetry - Reevaluation(s) Reevaluation #1: 05/17/19 10:09 I did discuss the case with Rozina who is covering Dr. Benz today. Patient will be admitted for evaluation and treatment Procedures - Orthopedic Splinting/Casting Injury #1 Side: right Lower Extremity Injury Location: short leg, ankle, foot Lower Extremity Immobilizer: posterior splint, stirrup splint Additional Comments: The patient was resistant to neutral positioning of the right foot during splinting. Medical Decision Making - Medical Decision Making I did discuss findings with the patient. Patient be admitted for treatment and evaluation. Medical consultation will be obtained. - Radiology Data Radiology results: report reviewed (I did review the imaging and reports patient does have a distal right tib-fib fracture as well as fractures of the distal third fourth and fifth metatarsals. No other fractures seen degenerative changes otherwise.), image reviewed Disposition Clinical Impression: Fracture of ankle, Fracture of foot, Fall Disposition: ADMITTED IP TO THIS [facility] Condition: Fair Referrals: Neymar Mcgill DO [Primary Care Provider] - 1-2 days
[2019-05-17] MEDS ORDERED: ATENOLOL 50 MG TAB PO STA (08:19)
[2019-05-17] MEDS ORDERED: FUROSEMIDE 20 MG TAB PO STA (08:22)
[2019-05-17] MEDS: ISOSORBIDE MONONITRATE ER 30 MG TAB.ER.24H PO STA ×2 (08:28→08:38)
--- NOTE | 2019-05-17 08:33 | XR ---
EXAMINATION TYPE: XR foot complete RT , 3 VIEWS DATE OF EXAM ORDERED: 05/17/2019 HISTORY: fall. COMPARISON: None. FINDINGS: There are moderately angulated fractures of the third, fourth and fifth metatarsal necks. There is a minimally displaced fracture of mid diaphysis of the proximal phalanx of the fourth digit. There is a cortical irregularity involving the first metatarsal head but this appears chronic. There are fractures of both the medial malleolus and the distal right fibula. There are both plantar and calcaneal spurs. IMPRESSION: 1. FRACTURES OF THE THIRD FOURTH AND FIFTH METATARSAL NECKS. 2. FRACTURES OF THE DISTAL TIBIA AND FIBULA. 3. MINIMALLY DISPLACED FRACTURE OF THE MID DIAPHYSIS OF THE PROXIMAL PHALANX OF THE FOURTH DATED. 4. CALCANEAL SPURS. 5. UNUSUAL SHAPE TO THE PROXIMAL PHALANX OF THE GREAT TOE ON THE RIGHT. NO DEFINITE ASSOCIATED ACUTE FRACTURE IS SEEN. CODE A: INITIAL ENCOUNTER FOR CLOSED FRACTURE.
--- NOTE | 2019-05-17 08:34 | XR ---
EXAMINATION TYPE: XR ankle complete RT , 3 VIEWS DATE OF EXAM ORDERED: 05/17/2019 HISTORY: Fall. COMPARISON: None. FINDINGS: There is a spiral fracture of the distal diametaphysis of the right fibula. There is a mil dly displaced fracture the medial malleolus. The ankle mortise appears intact. No definite ankle join t effusion is seen. Note is made of both plantar and Achilles calcaneal spurs. IMPRESSION: FRACTURES OF THE DISTAL TIBIA AND FIBULA. CODE A: INITIAL ENCOUNTER FOR CLOSED FRACTURE.
--- NOTE | 2019-05-17 08:36 | XR ---
EXAMINATION TYPE: XR tibia fibula RT , 2 VIEWS DATE OF EXAM ORDERED: 05/17/2019 HISTORY: Fall. COMPARISON: None. FINDINGS: Fractures of the distal fibula and medial malleoli are again identified. No additional fra ctures are seen. IMPRESSION: FRACTURES OF THE DISTAL TIBIA AND FIBULA ARE AGAIN IDENTIFIED. CODE A: INITIAL ENCOUNTER FOR CLOSED FRACTURE AREA
[2019-05-17] MEDS ORDERED: ISOSORBIDE MONONITRATE ER 30 MG TAB.ER.24H PO STA (08:38)
[2019-05-17] MEDS ORDERED: HYDROmorphone 1 MG/ML 1 ML SYRINGE IVP STA (09:28)
[2019-05-17] MEDS ORDERED: ONDANSETRON 4 MG/2 ML VIAL IVP PRN (10:10)
[2019-05-17] MEDS ORDERED: NALOXONE 0.4 MG/ML 1 ML VIAL IV PRN (10:10)
[2019-05-17] MEDS ORDERED: aMILoride-HCTZ 5-50 mg 1 EACH TAB PO STA (11:15)
[2019-05-17 11:21] LABS: Basophils # (A) 0.1 k/uL (0-0.2); Basophils % (A) 1 %; Eosinophils # (A) 0.1 k/uL (0-0.7); Eosinophils % (A) 1 %; Lymphocytes # (A) 1.8 k/uL (1.0-4.8); Lymphocytes % (A) 12 %; MCH 31.2 pg (25.0-35.0); MCHC 34.3 g/dL (31.0-37.0); Mean Platelet Volume 6.5; Monocytes # (A) 0.7 k/uL (0-1.0); Monocytes % (A) 5 %; Neutrophils # (A) 11.6 k/uL (1.3-7.7); Neutrophils % (A) 80 %; Platelet Count 314 k/uL (150-450); RBC 3.84 m/uL (3.80-5.40); RDW 12.7 % (11.5-15.5); WBC 14.6 k/uL (3.8-10.6)
[2019-05-17] MEDS: SODIUM CHLORIDE 0.9% 1,000 ML IV SCH (11:21)
[2019-05-17 11:29] LABS: Albumin 3.9 g/dL (3.5-5.0); Calcium 9.1 mg/dL (8.4-10.2); Magnesium 1.7 mg/dL (1.6-2.3); Potassium 3.6 mmol/L (3.5-5.1); Total Bilirubin 0.8 mg/dL (0.2-1.3)
[2019-05-17 11:49] LABS: Appearance,Urine Clear (Clear); Bilirubin,Urine Negative (Negative); Blood,Urine Negative (Negative); Color,Urine Light Yellow; Glucose,Urine (UA) Negative (Negative); Ketones,Urine Negative (Negative); Leukocyte Esterase,Urine Moderate (Negative); Nitrite,Urine Positive (Negative); PH, Urine 6.5 (5.0-8.0); Protein,Urine Negative (Negative); RBC,Urine <1 /hpf (0-5); Specific Gravity,Urine 1.006 (1.001-1.035); Squamous Epithelial Cell,Urine 1 /hpf (0-4); Urobilinogen,Urine <2.0 mg/dL (<2.0)
--- NOTE | 2019-05-17 11:54 | XR ---
EXAMINATION TYPE: XR chest 1V portable DATE OF EXAM: 05/17/2019 HISTORY: chf. REFERENCE: NONE. FINDINGS: The heart is mildly enlarged. The lungs are clear. Pleural space are clear. IMPRESSION: MILD CARDIOMEGALY.
[2019-05-17 12:17] LABS: Glucose,Whole Blood 130 mg/dL (75-99)
[2019-05-17 16:39] LABS: Glucose,Whole Blood 231 mg/dL (75-99)
[2019-05-17] MEDS: CHOLECALCIFEROL 1,000 UNIT TAB PO SCH (16:57)
[2019-05-17] MEDS: INSULN ASP PRT/INSULIN ASPART 100 UNIT/ML 10 ML VIAL SQ SCH (16:58)
[2019-05-17] MEDS ORDERED: ALPRAZolam 0.25 MG TAB PO PRN (17:28)
[2019-05-17] MEDS: PANTOPRAZOLE 40 MG TABLET PO SCH (19:03)
--- NOTE | 2019-05-17 22:46 | CONS ---
CONSULTATION DATE OF SERVICE: 05/17/2019 REASON FOR CONSULTATION: Advice regarding diabetes mellitus and other multiple medical issues requested by Dr. Benz. HISTORY OF PRESENT ILLNESS: This 84-year-old woman with a past medical history of asthma, diabetes, hypertension, hypothyroidism, bladder surgery being followed by Dr. Mcgill in the outpatient setting, had actually had a fall last night. The patient fell out of the bed last night and suffered a right distal tibia-fibula fracture. The patient was admitted for further evaluation and treatment. Currently, orthopedic surgery is planning conservative line of management. According to the staff, the patient is complaining of some pain. There is no history of fever, rigors or chills. No history of headache, loss of consciousness or seizures at this time. PAST MEDICAL HISTORY: Past medical history of asthma and diabetes, hypertension, rheumatoid arthritis, cholecystectomy. MEDICATIONS: Prior to admission include: 1. Amlodipine hydrochlorothiazide 5/50 1 p.o. daily. 2. PreserVision 1 capsule p.o. b.i.d. 3. Klor-Con 20 mEq p.o. daily. 4. Synthroid 125 mcg p.o. daily. 5. Imdur ER 30 mg p.o. daily. 6. Novolin 70/30 65 units subcu b.i.d. 7. Motrin 800 mg q.6h. 8. Lasix 20 mg p.o. daily. 9. Vitamin D3 1000 units t.i.d. 10.Atenolol 100 mg p.o. daily. 11.Aspirin 81 mg. ALLERGIES: PENICILLIN, MORPHINE. FAMILY HISTORY: History of cancer in the family. SOCIAL HISTORY: No history of smoking. No history of alcohol intake. REVIEW OF SYSTEMS: ENT: Diminished vision and diminished hearing. CARDIOVASCULAR: No angina or palpitations. RESPIRATIONS: No cough or hemoptysis. GI no nausea or vomiting. : No dysuria. NERVOUS SYSTEM: No numbness or weakness. ALLERGY/IMMUNOLOGY: No asthma or hayfever. MUSCULOSKELETAL as mentioned earlier. HEMATOLOGY/ONCOLOGY: No history of anemia. ENDOCRINE: As mentioned earlier. CONSTITUTIONAL: As mentioned earlier. DERMATOLOGY: Negative. RHEUMATOLOGY: Negative. PSYCHIATRY: As mentioned earlier. PHYSICAL EXAMINATION: Alert and oriented x3. Pulse is 51, blood pressure 154/70, respirations 16, temperature 98.1, pulse ox 94% on room air. HEENT: Conjunctivae normal. Oral mucosa moist. NECK is no jugular venous distention. No carotid bruit. No lymph node enlargement. CARDIOVASCULAR: S1-S2 muffled. No S3, no S4. RESPIRATION: Breath sounds diminished in the bases. No rhonchi. No crackles. ABDOMEN: Soft, obese, nontender. No mass palpable. LEGS: Status post right tibia, fibular fracture. CENTRAL NERVOUS SYSTEM: Higher functions as mentioned earlier. Moves all 4 limbs except the distal right lower limb. SKIN: No ulcers, no rashes, no bleeding. JOINTS: No active deforming arthropathy. LABS: WBC 14.6, sodium 134, glucose 100 and creatinine kinase 232. UA possible UTI. ASSESSMENT: 1. Fall and right distal tibia fibular fracture. 2. Gait dysfunction with severe pain. 3. Possible urinary tract infection present on admission. 4. Hyponatremia. 5. Increased WBC. 6. Elevated creatinine kinase. 7. History of asthma. 8. History of diabetes type 2. 9. Hypertension. 10.History of degenerative joint disease. 11.History of hypothyroidism. 12.History of bladder surgery. 13.History of cholecystectomy. 14.History of hysterectomy. 15.Obesity with body mass index of 32.6. RECOMMENDATIONS AND DISCUSSION: In this 84-year-old woman who presented with multiple complex medical issues, we will monitor the patient closely, continue the current medications, management and symptomatic treatment. I recommend resume the home dose of diabetic medications and Accu-Cheks a.c. and at bedtime. I would also recommend EKG and portable chest x-ray. EKG showed some ST-T changes and chest x-ray showed some mild cardiomegaly. The patient is recently asymptomatic and as well as the previous preoperative exercise tolerance appears to be excellent. The patient will be cleared for surgery if it is needed. Otherwise recommend PT/OT evaluation, possible ECF rehab also. A copy of dictation being forwarded to Dr. Mcgill who is the primary physician. Thank you, Dr. Benz for letting us participate in the care of this patient. MMODL / IJN: [id number] / MTDD
[2019-05-18] MEDS: IBUPROFEN 800 MG TAB PO PRN ×4 (01:21→22:42)
[2019-05-18] MEDS: CHOLECALCIFEROL 1,000 UNIT TAB PO SCH ×4 (01:22→22:19)
[2019-05-18] MEDS: VIT A,C & E-LUTEIN-MINERALS 1 EACH TAB PO SCH ×3 (01:22→22:18)
[2019-05-18] MEDS: HEPARIN SODIUM,PORCINE 5,000 UNIT/ML 1 ML VIAL SQ SCH ×3 (01:22→22:18)
[2019-05-18] MEDS: SODIUM CHLORIDE 0.9% 1,000 ML IV SCH ×2 (01:23→14:53)
[2019-05-18 01:40] LABS: Glucose,Whole Blood 146 mg/dL (75-99)
[2019-05-18] MEDS: LEVOTHYROXINE 125 MCG TAB PO SCH (06:31)
[2019-05-18 07:04] LABS: Glucose,Whole Blood 83 mg/dL (75-99)
[2019-05-18 07:25] LABS: Basophils # (A) 0.1 k/uL (0-0.2); Basophils % (A) 1 %; Eosinophils # (A) 0.4 k/uL (0-0.7); Eosinophils % (A) 4 %; HGB 10.8 gm/dL (11.4-16.0); Lymphocytes # (A) 2.3 k/uL (1.0-4.8); Lymphocytes % (A) 24 %; MCH 30.9 pg (25.0-35.0); MCHC 33.7 g/dL (31.0-37.0); MCV 91.9 fL (80.0-100.0); Mean Platelet Volume 6.5; Monocytes # (A) 0.7 k/uL (0-1.0); Monocytes % (A) 7 %; Neutrophils % (A) 62 %; Platelet Count 273 k/uL (150-450); RBC 3.48 m/uL (3.80-5.40); RDW 12.8 % (11.5-15.5); WBC 9.6 k/uL (3.8-10.6)
[2019-05-18 07:34] LABS: Calcium 8.8 mg/dL (8.4-10.2); Potassium 3.1 mmol/L (3.5-5.1)
[2019-05-18] MEDS: FUROSEMIDE 20 MG TAB PO SCH (08:18)
[2019-05-18] MEDS: INSULN ASP PRT/INSULIN ASPART 100 UNIT/ML 10 ML VIAL SQ SCH ×2 (08:18→16:58)
[2019-05-18] MEDS: ATENOLOL 50 MG TAB PO SCH (08:19)
[2019-05-18] MEDS: POTASSIUM CHLORIDE ER 20 MEQ TAB.ER PO SCH (08:19)
[2019-05-18] MEDS: ISOSORBIDE MONONITRATE ER 30 MG TAB.ER.24H PO SCH (08:19)
[2019-05-18] MEDS: PANTOPRAZOLE 40 MG TABLET PO SCH (08:19)
[2019-05-18] MEDS: ASPIRIN 81 MG PO SCH (08:19)
[2019-05-18] MEDS: aMILoride-HCTZ 5-50 mg 1 EACH TAB PO SCH (08:20)
--- NOTE | 2019-05-18 09:08 | P.HPOR ---
History of Present Illness H&P Date: 05/18/19 This is an 84-year-old female who is admitted for right ankle and foot fractures. Patient states that she fell at home around 2 in the morning on 05/17/2019, but does not remember what happened. Patient states that she used her life alert button to call her daughter and an ambulance who transferred her to the emergency room. Patient states that her pain is well controlled this morning she denies any numbness, weakness or tingling. Patient states that she does have a walking boot at home from a previous injury. Patient's past medical history significant for asthma, diabetes mellitus, hypertension, rheumatoid arthritis and thyroid disorder. Review of Systems See HPI. Past Medical History Past Medical History: Asthma, Diabetes Mellitus, Hypertension, Rheumatoid Arthritis (RA), Thyroid Disorder History of Any Multi-Drug Resistant Organisms: None Reported Past Surgical History: Bladder Surgery, Cholecystectomy, Hysterectomy Additional Past Surgical History / Comment(s): thyroid removed Past Psychological History: No Psychological Hx Reported Smoking Status: Never smoker Past Alcohol Use History: Unable to Obtain Past Drug Use History: None Reported - Past Family History Father Family Medical History: Cancer Medications and Allergies Home Medications Medication Instructions Recorded Confirmed Type Aspirin 81 mg PO DAILY 10/26/17 05/17/19 History Atenolol 100 mg PO DAILY 10/26/17 05/17/19 History Cholecalciferol [Vitamin D3 (25 1,000 unit PO TID 10/26/17 05/17/19 History Mcg = 1000 Iu)] Furosemide [Lasix] 20 mg PO DAILY 10/26/17 05/17/19 History Insulin NPH Hum/Reg Insulin Hm 65 unit SQ BID 10/26/17 05/17/19 History [NovoLIN 70-30 100 UNIT/ML VIAL] Isosorbide Mononitrate [Isosorbide 30 mg PO DAILY 10/26/17 05/17/19 History Mononitrate ER] Levothyroxine Sodium [Synthroid] 125 mcg PO DAILY 10/26/17 05/17/19 History Potassium Chloride [Klor-Con 20] 20 meq PO DAILY 10/26/17 05/17/19 History aMILoride-HCTZ 5-50 mg [Moduretic 1 tab PO DAILY 10/26/17 05/17/19 History 5-50] Ibuprofen [Motrin] 800 mg PO Q6H PRN 05/17/19 05/17/19 History Vit C/E/Zn/Coppr/Lutein/Zeaxan 1 cap PO BID 05/17/19 05/17/19 History [Preservision Areds 2 Softgel] Allergies Allergy/AdvReac Type Severity Reaction Status Date / Time Penicillins Allergy Unknown Verified 05/17/19 09:04 morphine AdvReac Hallucinati Verified 05/17/19 09:04 ons Physical Examination On exam patient is resting comfortably in bed in no acute distress. Patient is alert and oriented 3. A splint is clean, dry and intact to the right lower extremity. Patient has good range of motion of the toes of the right foot. The right lower extremity is warm and well perfused. Sensation intact. Capillary refill is normal at less than 2 seconds. Neurovascular status and circulatory status are intact. Head is normocephalic and atraumatic. Patient has good range of motion of head and neck without pain or difficulty. Exams of bilateral upper extremities and left lower extremity are within normal limits. Results X-rays of the right tibia/fibula and ankle dated 05/17/2019 show a minimally displaced fracture of the distal fibula and nondisplaced fracture of the medial malleolus. Ankle mortise is intact. X-rays of the right foot dated 05/17/2019 show fractures of the third, fourth and fifth metatarsal necks. There is also a fracture of the proximal phalanx fourth toe. - Labs Labs: Abnormal Lab Results - Last 24 Hours (Table) 05/17/19 05/17/19 05/17/19 Range/Units 11:00 11:00 11:18 WBC 14.6 H (3.8-10.6) k/uL RBC (3.80-5.40) m/uL Hgb (11.4-16.0) gm/dL Hct (34.0-46.0) % Neutrophils # 11.6 H (1.3-7.7) k/uL Sodium 134 L (137-145) mmol/L Chloride 96 L (98-107) mmol/L Glucose 100 H (74-99) mg/dL POC Glucose (mg/dL) (75-99) mg/dL Creatine Kinase 232 H (30-135) U/L Urine Nitrite Positive H (Negative) Ur Leukocyte Esterase Moderate H (Negative) Urine WBC 18 H (0-5) /hpf 05/17/19 05/17/19 05/18/19 Range/Units 12:16 16:28 01:39 WBC (3.8-10.6) k/uL RBC (3.80-5.40) m/uL Hgb (11.4-16.0) gm/dL Hct (34.0-46.0) % Neutrophils # (1.3-7.7) k/uL Sodium (137-145) mmol/L Chloride (98-107) mmol/L Glucose (74-99) mg/dL POC Glucose (mg/dL) 130 H 231 H 146 H (75-99) mg/dL Creatine Kinase (30-135) U/L Urine Nitrite (Negative) Ur Leukocyte Esterase (Negative) Urine WBC (0-5) /hpf 05/18/19 Range/Units 06:15 WBC (3.8-10.6) k/uL RBC 3.48 L (3.80-5.40) m/uL Hgb 10.8 L (11.4-16.0) gm/dL Hct 32.0 L (34.0-46.0) % Neutrophils # (1.3-7.7) k/uL Sodium (137-145) mmol/L Chloride (98-107) mmol/L Glucose (74-99) mg/dL POC Glucose (mg/dL) (75-99) mg/dL Creatine Kinase (30-135) U/L Urine Nitrite (Negative) Ur Leukocyte Esterase (Negative) Urine WBC (0-5) /hpf Microbiology - Last 24 Hours (Table) 05/17/19 11:18 Urine Culture - Preliminary Urine,Voided H & H 05/17/19 05/18/19 Range/Units 11:00 06:15 Hgb 12.0 10.8 L (11.4-16.0) gm/dL Hct 35.0 32.0 L (34.0-46.0) % Result Diagrams: 05/18/19 06:15 05/18/19 06:15 Assessment and Plan Assessment: Asthma Diabetes mellitus Hypertension Rheumatoid arthritis Thyroid disorder Plan: 1. Nonweightbearing to the right lower extremity. Maintain splint to right lower extremity. May weight bear as tolerated when she receives her walking boot. 2. Plan to obtain walking boot that patient has at home. 3. Rest, ice and elevate the right lower extremity. 4. Continue pain control. 5. Recommend physical therapy for mobilization. 6. Possible discharge home with home care or to rehab in the next 1-2 days.
[2019-05-18 11:45] LABS: Glucose,Whole Blood 53 mg/dL (75-99)
[2019-05-18 12:17] LABS: Glucose,Whole Blood 65 mg/dL (75-99)
[2019-05-18 12:28] LABS: Glucose,Whole Blood 51 mg/dL (75-99)
[2019-05-18 12:35] LABS: Glucose,Whole Blood 78 mg/dL (75-99)
[2019-05-18 17:07] LABS: Glucose,Whole Blood 147 mg/dL (75-99)
--- NOTE | 2019-05-18 19:59 | PN ---
PROGRESS NOTE DATE OF SERVICE: 05/18/2019. This 84-year-old woman was admitted after a tibia-fibula fracture, is on conservative line of management. No chest pain. No palpitations. No fever. PT/OT is also evaluating the patient. The patient also has bradycardia and hypoglycemia also. EXAM: Alert and oriented times three. Pulse 49, blood pressure 123/70, respirations 16, temperature 97.9, pulse ox 98% on room air. HEENT: Conjunctivae normal. NECK: No JVD. CARDIOVASCULAR: S1, S2 muffled. RESPIRATION: Breath sounds diminished in the bases. No rhonchi. No crackles. ABDOMEN soft, nontender. LEGS status post right leg fracture. NERVOUS SYSTEM: No focal deficits. LABS: Accu-Cheks 53, 51, 65. Hemoglobin 10.9. Sodium 130. Potassium 3.1. REVIEW OF SYSTEMS: CARDIOVASCULAR SYSTEM: No angina. RESPIRATION: As mentioned earlier. GASTROINTESTINAL: As mentioned earlier. : No dysuria. CENTRAL NERVOUS SYSTEM: As mentioned earlier. MUSCULOSKELETAL: As mentioned earlier. CURRENT MEDICATIONS: Reviewed and include: 1. Xanax 0.5 t.i.d. 2. Moduretic 5/50 1 p.o. daily. 3. Aspirin 81 mg. 4. Tenormin 200 mg daily. 5. Vitamin D3. 6. Lasix. 7. Heparin. 8. Motrin. 9. NovoLog 70/30 60 units b.i.d. 10.Imdur. 11.Synthroid. 12.I-Karoline. 13.Zofran. 14.Protonix. 15.K-Dur. 16.Bactrim DS. ASSESSMENT: 1. Fall and right distal tibia-fibula fracture. 2. Gait dysfunction with severe pain. 3. Urinary tract infection present on admission. 4. Hyponatremia. 5. Hypoglycemia. 6. Bradycardia possibly sinus. 7. Increased WBC. 8. Elevated creatine kinase. 9. History of asthma. 10.Gait dysfunction. 11.History of diabetes type 2. 12.Hypertension. 13.History of degenerative joint disease. 14.History of hypothyroidism. 15.History of bladder surgery. 16.History of cholecystectomy. 17.History of hysterectomy. 18.Obesity with body mass index of 32.6. RECOMMENDATIONS AND DISCUSSION: Recommend to continue current medications, monitor and symptomatic treatment. Otherwise, at this time, I recommend PT/OT evaluation, possible ECF rehab. Continue the rest of medications. We will watch for the bradycardia. EKG showed some minimal ST-T changes. Continue the current medications. I would also recommend to reduce the dose of insulin and continue to monitor. Prognosis guarded. Closely follow with Orthopedic surgery. Further recommendations to follow. MMBELLE / LITON: [id number] /
--- NOTE | 2019-05-18 21:20 | CONS ---
CONSULTATION DATE OF SERVICE: This is a pulmonary/critical care consultation. 84-year-old female who I see in the office. She has a history of chronic bronchial asthma, diabetes mellitus, hypertension, rheumatoid arthritis, and hypothyroidism. She apparently found herself on the floor the night before last. She apparently went to bed before midnight and apparently sometime after 2 o'clock woke up to find herself on the floor. She is not sure exactly how she ended up on the floor. Anyway, she had sort of soreness in her back and buttocks area and also found it very difficult to do any weightbearing on her right foot. She came into the emergency room where she was evaluated and she apparently was found to have a right tib-fib fracture and some fracture of some toes on the right foot. Again, she is not sure how she ended up on the floor. Anyway, she is resting comfortably. She has a boot on. She has been seen by orthopedics. Apparently, no surgery is necessary at this time. She denies other complaints including chest pain, difficulty breathing, coughing, wheezing, phlegm production. Her asthma for which I see her for is not active at this time. Apparently the plan is possible discharge home in the next day or so and/or discharged to a correction or rehab facility. HOME MEDICATIONS: Include aspirin, atenolol, vitamin D3, Lasix, insulin, Imdur, levothyroxine, potassium chloride, Moduretic, ibuprofen, and I- vitamins. ALLERGIES: Include PENICILLIN and MORPHINE. MEDICAL HISTORY: Asthma, diabetes mellitus, hypertension, rheumatoid arthritis, and hypothyroidism. PAST SURGICAL HISTORY: Includes cholecystectomy, hysterectomy, bladder surgery, and thyroidectomy. SOCIAL HISTORY: Significant that she is a lifelong nonsmoker. No alcohol use. No illicit drug use. FAMILY HISTORY: Noncontributory. Mother and father were both apparently quite healthy and lived well into their 80s. REVIEW OF SYSTEMS: CONSTITUTIONAL: Negative. NEUROLOGICAL: Negative. HEENT negative. CARDIOVASCULAR negative. PULMONARY negative. GI negative. negative. RHEUMATOLOGIC: Pain in the right foot and ankle area. IMMUNOLOGIC negative. ENDOCRINOLOGIC negative. DERMATOLOGIC negative. PHYSICAL EXAMINATION: VITAL SIGNS: Current vital signs are reviewed. They include temperature 97.8. Heart rate 55, respiratory rate 16, blood pressure 124/49, mean 74, room air saturation 94%. She appears in no acute distress. She is sitting up in a chair. She has a boot on the right foot, ankle and leg. HEENT examination is grossly unremarkable. Mucous membranes are moist. No oral lesions. NECK: Supple. Full range of motion. No adenopathy or thyromegaly. Neck veins are flat. CARDIOVASCULAR examination reveals regular rhythm and rate. S1, S2 normal. No S3, S4, or murmur. LUNGS: Reveal mostly clear breath sounds. No wheezes, rhonchi, or crackles. Breath sounds equal bilaterally. ABDOMEN: Soft. Bowel sounds are heard. EXTREMITIES are intact. No cyanosis, clubbing, or edema. SKIN is without rash. NEUROLOGIC: Examination is nonfocal. The right leg, ankle and foot are in a boot. X-RAY: Reports suggest a right tib-fib fracture. She apparently also has fractures to her 3rd, 4th and 5th metatarsal necks and fracture of the distal tibia and fibula. There is also a minimally displaced fracture of the mid diaphysis of the proximal phalanx of the 4th toe. LAB DATA: Reviewed. White count 9.6, hemoglobin 10.8, hematocrit 30.0, platelet count 273,000, sodium 134, potassium 3.1, chloride 95, CO2 34, anion gap is 5, BUN and creatinine were 21 and 1.04. Urine was nitrite positive. There is moderate leukocyte esterase positivity. There was 18 WBCs. No bacteria. ASSESSMENT: 1. Unclear trauma to the right distal tib-fib area as well as to the foot on the right side, with multiple fractures as noted. Currently not in need of any surgical repair. 2. Possible urinary tract infection. 3. History of chronic bronchial asthma. 4. Diabetes mellitus. 5. Hypertension. 6. Rheumatoid arthritis. 7. Hypothyroidism. PLAN: The patient's medications are reviewed. She will follow up with me in the office. Currently, her medications include the ones that she is typically on. I will add something for possible bladder infection. She is not having any bladder symptoms. Possible discharge in next 24-48 hours. She may go home which is her preference or she may go to a correction or rehab facility. MMODL / IJN: [id number] /
[2019-05-18] MEDS: SULFAMETHOX-TMP 800-160MG 1 EACH TAB PO SCH (22:18)
[2019-05-18 23:13] LABS: Glucose,Whole Blood 195 mg/dL (75-99)
[2019-05-19] MEDS: SODIUM CHLORIDE 0.9% 1,000 ML IV SCH ×2 (00:22→12:02)
[2019-05-19] MEDS: LEVOTHYROXINE 125 MCG TAB PO SCH (06:26)
[2019-05-19 06:55] LABS: Glucose,Whole Blood 53 mg/dL (75-99)
[2019-05-19 06:55] LABS: Basophils % (A) 1 %; Eosinophils # (A) 0.3 k/uL (0-0.7); Eosinophils % (A) 3 %; HCT 32.6 % (34.0-46.0); HGB 11.1 gm/dL (11.4-16.0); Lymphocytes # (A) 1.2 k/uL (1.0-4.8); Lymphocytes % (A) 13 %; MCH 31.2 pg (25.0-35.0); MCHC 33.9 g/dL (31.0-37.0); MCV 91.8 fL (80.0-100.0); Mean Platelet Volume 6.8; Monocytes # (A) 0.6 k/uL (0-1.0); Monocytes % (A) 6 %; Neutrophils # (A) 6.9 k/uL (1.3-7.7); Neutrophils % (A) 75 %; Platelet Count 276 k/uL (150-450); RBC 3.55 m/uL (3.80-5.40); WBC 9.2 k/uL (3.8-10.6)
[2019-05-19 07:03] LABS: Calcium 9.1 mg/dL (8.4-10.2); Potassium 2.9 mmol/L (3.5-5.1)
[2019-05-19 07:23] LABS: Glucose,Whole Blood 63 mg/dL (75-99)
[2019-05-19] MEDS: INSULN ASP PRT/INSULIN ASPART 100 UNIT/ML 10 ML VIAL SQ SCH ×2 (07:23→17:25)
[2019-05-19] MEDS: POTASSIUM CHLORIDE ER 20 MEQ TAB.ER PO SCH ×4 (07:30→16:12)
[2019-05-19] MEDS: ISOSORBIDE MONONITRATE ER 30 MG TAB.ER.24H PO SCH (07:30)
[2019-05-19] MEDS: ATENOLOL 50 MG TAB PO SCH (07:30)
[2019-05-19] MEDS: HEPARIN SODIUM,PORCINE 5,000 UNIT/ML 1 ML VIAL SQ SCH ×2 (07:30→21:19)
[2019-05-19] MEDS: PANTOPRAZOLE 40 MG TABLET PO SCH (07:31)
[2019-05-19] MEDS: VIT A,C & E-LUTEIN-MINERALS 1 EACH TAB PO SCH (07:31)
[2019-05-19] MEDS: ASPIRIN 81 MG PO SCH (07:31)
[2019-05-19] MEDS: CHOLECALCIFEROL 1,000 UNIT TAB PO SCH ×3 (07:31→21:19)
[2019-05-19] MEDS: SULFAMETHOX-TMP 800-160MG 1 EACH TAB PO SCH (07:31)
[2019-05-19] MEDS: aMILoride-HCTZ 5-50 mg 1 EACH TAB PO SCH (07:31)
[2019-05-19] MEDS: FUROSEMIDE 20 MG TAB PO SCH (07:31)
[2019-05-19 07:36] LABS: Glucose,Whole Blood 96 mg/dL (75-99)
[2019-05-19 11:56] LABS: Glucose,Whole Blood 166 mg/dL (75-99)
[2019-05-19] MEDS ORDERED: LEVOFLOXACIN 500 MG TAB PO SCH (13:30)
--- NOTE | 2019-05-19 14:07 | P.PN ---
Subjective Progress Note Date: 05/19/19 Principal diagnosis: Right distal tib-fib fracture, urinary tract infection On 05/19/2019 patient seen in follow-up on medical surgical floor. She is awake and alert, sitting up in the recliner, in no acute distress, denies any chest pain, denies any shortness of breath, on room air pulse ox 97%. No cough or congestion, no fever or chills, patient has been tolerating ambulation, her right foot is in a boot. Patient's asthma is stable at this time. Objective - Vital Signs Vital signs: Vital Signs Temp 97.5 F L 05/19/19 07:00 Pulse 88 05/19/19 07:00 Resp 18 05/19/19 07:00 BP 172/94 05/19/19 07:00 Pulse Ox 97 05/19/19 07:00 Intake & Output 05/18/19 05/19/19 05/19/19 18:59 06:59 18:59 Intake Total 180 Balance 180 Intake: Oral 180 Other: Voiding Method Bedside Commode # Voids 2 2 # Bowel Movements 1 - Exam GENERAL EXAM: Alert, pleasant, 84-year-old white female on room air, with a pulse ox 96% comfortable in no apparent distress. HEAD: Normocephalic/atraumatic. EYES: Normal reaction of pupils, equal size. Conjunctiva pink, sclera white. NOSE: Clear with pink turbinates. THROAT: No erythema or exudates. NECK: No masses, no JVD, no thyroid enlargement, no adenopathy. CHEST: No chest wall deformity. Symmetrical expansion. LUNGS: Equal air entry with no crackles, wheeze, rhonchi or dullness. CVS: Regular rate and rhythm, normal S1 and S2, no gallops, no murmurs, no rubs ABDOMEN: Soft, nontender. No hepatosplenomegaly, normal bowel sounds, no guarding or rigidity. EXTREMITIES: No clubbing, no edema, no cyanosis, 2+ pulses and upper and lower extremities. Right lower extremity boot in place, pulses are intact, Less than 3 seconds, no numbness or tingling. MUSCULOSKELETAL: Muscle strength and tone normal. SPINE: No scoliosis or deformity SKIN: No rashes CENTRAL NERVOUS SYSTEM: Alert and oriented -3. No focal deficits, tone is normal in all 4 extremities. PSYCHIATRIC: Alert and oriented -3. Appropriate affect. Intact judgment and insight. - Labs CBC & Chem 7: 05/19/19 06:21 05/19/19 06:21 Labs: Abnormal Lab Results - Last 24 Hours (Table) 05/18/19 05/18/19 05/19/19 Range/Units 16:47 23:12 06:21 RBC 3.55 L (3.80-5.40) m/uL Hgb 11.1 L (11.4-16.0) gm/dL Hct 32.6 L (34.0-46.0) % Sodium (137-145) mmol/L Potassium (3.5-5.1) mmol/L Chloride (98-107) mmol/L Carbon Dioxide (22-30) mmol/L BUN (7-17) mg/dL Creatinine (0.52-1.04) mg/dL Glucose (74-99) mg/dL POC Glucose (mg/dL) 147 H 195 H (75-99) mg/dL 05/19/19 05/19/19 05/19/19 Range/Units 06:21 06:53 07:21 RBC (3.80-5.40) m/uL Hgb (11.4-16.0) gm/dL Hct (34.0-46.0) % Sodium 136 L (137-145) mmol/L Potassium 2.9 L (3.5-5.1) mmol/L Chloride 97 L (98-107) mmol/L Carbon Dioxide 32 H (22-30) mmol/L BUN 23 H (7-17) mg/dL Creatinine 1.06 H (0.52-1.04) mg/dL Glucose 37 L* (74-99) mg/dL POC Glucose (mg/dL) 53 L 63 L (75-99) mg/dL 05/19/19 Range/Units 11:55 RBC (3.80-5.40) m/uL Hgb (11.4-16.0) gm/dL Hct (34.0-46.0) % Sodium (137-145) mmol/L Potassium (3.5-5.1) mmol/L Chloride (98-107) mmol/L Carbon Dioxide (22-30) mmol/L BUN (7-17) mg/dL Creatinine (0.52-1.04) mg/dL Glucose (74-99) mg/dL POC Glucose (mg/dL) 166 H (75-99) mg/dL Microbiology - Last 24 Hours (Table) 05/17/19 11:18 Urine Culture - Final Urine,Voided Escherichia coli Assessment and Plan Plan: Assessment: #1. Possible fall, trauma to the right distal tib-fib area and the fluid of the right side with multiple fractures, currently in the immobilizer boot #2. Urinary tract infection, secondary to E. coli #3. History of mild intermittent bronchial asthma, currently stable #4. Diabetes mellitus #5. Hypertension #6. Rheumatoid arthritis #7. Hypothyroidism Plan: Patient is on appropriate antibiotics for urinary tract infection, she is tolerating ambulating, no specific complaints, has occasional productive cough, but otherwise no fever or chills. We will order nebulized bronchodilators on as-needed basis. Vital signs are stable, right lower extremity remains in a boot, no surgery planned. Discharge to subacute rehab pending possibly on . We'll sign off in follow-up on as-needed basis I performed a history & physical examination of the patient and discussed their management with my nurse practitioner, Nandini Mills. I reviewed the nurse practitioner's note and agree with the documented findings and plan of care. Lung sounds are positive for diminished breath sounds at the bases. The findings and the impression was discussed with the patient. I attest to the documentation by the nurse practitioner. Time with Patient: Less than 30
--- NOTE | 2019-05-19 14:08 | P.PN ---
Subjective Progress Note Date: 05/19/19 This is an 84-year-old female who is admitted after a fall for right ankle and foot fractures. Patient is seen and evaluated at bedside today. Patient states that her pain is well controlled and she has been working with physical therapy. Patient denies any new complaints today. Patient denies any fever/chills, numbness, weakness, tingling, abdominal pain, shortness of breath or chest pain. Objective - Vital Signs Vital signs: Vital Signs Temp 97.5 F L 05/19/19 07:00 Pulse 88 05/19/19 07:00 Resp 18 05/19/19 07:00 BP 172/94 05/19/19 07:00 Pulse Ox 97 05/19/19 07:00 Intake & Output 05/18/19 05/19/19 05/19/19 18:59 06:59 18:59 Intake Total 180 Balance 180 Intake: Oral 180 Other: Voiding Method Bedside Commode # Voids 2 2 # Bowel Movements 1 - Exam On exam patient is sitting comfortably in a chair in no acute distress. Patient's walking boot is in place and is clean, dry and intact. Sensation intact. The right lower extremity is warm and well perfused. Neurovascular status and circulatory status are intact. - Labs CBC & Chem 7: 05/19/19 06:21 05/19/19 06:21 Labs: Abnormal Lab Results - Last 24 Hours (Table) 05/18/19 05/18/19 05/19/19 Range/Units 16:47 23:12 06:21 RBC 3.55 L (3.80-5.40) m/uL Hgb 11.1 L (11.4-16.0) gm/dL Hct 32.6 L (34.0-46.0) % Sodium (137-145) mmol/L Potassium (3.5-5.1) mmol/L Chloride (98-107) mmol/L Carbon Dioxide (22-30) mmol/L BUN (7-17) mg/dL Creatinine (0.52-1.04) mg/dL Glucose (74-99) mg/dL POC Glucose (mg/dL) 147 H 195 H (75-99) mg/dL 05/19/19 05/19/19 05/19/19 Range/Units 06:21 06:53 07:21 RBC (3.80-5.40) m/uL Hgb (11.4-16.0) gm/dL Hct (34.0-46.0) % Sodium 136 L (137-145) mmol/L Potassium 2.9 L (3.5-5.1) mmol/L Chloride 97 L (98-107) mmol/L Carbon Dioxide 32 H (22-30) mmol/L BUN 23 H (7-17) mg/dL Creatinine 1.06 H (0.52-1.04) mg/dL Glucose 37 L* (74-99) mg/dL POC Glucose (mg/dL) 53 L 63 L (75-99) mg/dL 05/19/19 Range/Units 11:55 RBC (3.80-5.40) m/uL Hgb (11.4-16.0) gm/dL Hct (34.0-46.0) % Sodium (137-145) mmol/L Potassium (3.5-5.1) mmol/L Chloride (98-107) mmol/L Carbon Dioxide (22-30) mmol/L BUN (7-17) mg/dL Creatinine (0.52-1.04) mg/dL Glucose (74-99) mg/dL POC Glucose (mg/dL) 166 H (75-99) mg/dL Microbiology - Last 24 Hours (Table) 05/17/19 11:18 Urine Culture - Final Urine,Voided Escherichia coli Assessment and Plan Assessment: Asthma Diabetes mellitus Hypertension Rheumatoid arthritis Thyroid disorder Plan: 1. Recommend protected weightbearing to the right lower extremity with walker and walking boot. 2. Continue pain control. 3. Rest, ice and elevate the right lower extremity. 4. Appreciate input from medicine. 5. Recommend physical therapy for mobilization. 6. Patient is awaiting rehab placement.
[2019-05-19] MEDS: POTASSIUM CHLORIDE 20 MEQ in WATER FOR INJECTION 1 100ML.BAG IVPB SCH ×2 (14:54→18:18)
--- NOTE | 2019-05-19 15:15 | PN ---
PROGRESS NOTE DATE OF SERVICE: 05/19/2019. This is an 84-year-old woman who was admitted with a fall and right tibia-fibula fracture, is being closely monitored. No chest pain. No palpitations. No fever. Possible ECF rehab is being considered. On exam, the potassium is 2.9, which is being corrected and creatinine is 1.7, glucose of 37. Patient is hypoglycemic. MEDICATIONS: Have been adjusted. PAST MEDICAL HISTORY: Reviewed. REVIEW OF SYSTEMS: CARDIOVASCULAR: No angina. RESPIRATION: As mentioned earlier. : No dysuria. NERVOUS SYSTEM: As mentioned earlier. CURRENT MEDICATIONS: Reviewed and include: 1. Xanax 0.5 t.i.d. 2. Moduretic 5/50. 3. Aspirin 81 mg. 4. Tenormin 100 mg daily. 5. Vitamin D3 one thousand t.i.d. 6. Lasix 20 mg daily. 7. Heparin 5000 b.i.d. 8. NovoLog 70/30 b.i.d. 9. Imdur 30 mg p.o. daily. 10.Synthroid 125 mcg p.o. daily. 11.I Karoline 1 p.o. b.i.d. 12.Narcan. 13.Zofran. 14.Protonix. 15.Bactrim DS. PHYSICAL EXAM: Patient is alert, oriented x2. Pulse 88, blood pressure 172/94, respiration 18, temperature 97.4, pulse ox 97% on room air. HEENT: Conjunctivae normal. NECK: No jugular venous distension. RESPIRATION: Breath sounds related to the bases, a few scattered rhonchi, no crackles. ABDOMEN: Soft, nontender. No mass palpable. LEGS: Status post right leg fracture. NERVOUS SYSTEM: No focal deficits. LABS: At this time shows WBC 9.2, hemoglobin is 11.2, sodium 130, potassium 2.9, creatinine 1.6. Accu-Cheks noted. ASSESSMENT: 1. Fall and right distal tibial fracture. 2. Gait dysfunction, severe pain. 3. Urinary tract infection present on admission. 4. Hypoglycemia with diabetes mellitus type 2, uncontrolled. 5. Hypokalemia, severe. 6. Hyponatremia. 7. Sinus bradycardia. 8. Increased WBC. 9. Elevated creatine kinase. 10.History of asthma. 11.Gait dysfunction. 12.History of diabetes mellitus type 2. 13.Hypertension. 14.History of degenerative joint disease. 15.History of hypothyroidism. 16.History of bladder cancer. 17.History of cholecystectomy. 18.History of hysterectomy. 19.Obesity with body mass index of 32.6. 20.NO CODE, NO CARDIOPULMONARY RESUSCITATION, NO VENTILATOR. RECOMMENDATION: In this 84-year-old woman who presented with multiple complex medical issues, at this time, I recommend to continue with the current medications, continue symptomatic treatment. Otherwise at this time, I recommend monitor fluid balance closely, supplement potassium. Will cut down the dose of insulin further because of the persistent hypoglycemia. Otherwise, guarded prognosis because of multiple complex medical issues. See orders, recommend PT, OT evaluation. Closely follow with Surgery and I will check magnesium also. Further recommendations to follow. MMODL / IJN: [id number] /
[2019-05-19] MEDS: IBUPROFEN 800 MG TAB PO PRN (16:12)
[2019-05-19 16:13] LABS: Glucose,Whole Blood 257 mg/dL (75-99)
[2019-05-19 17:11] LABS: Glucose,Whole Blood 244 mg/dL (75-99)
[2019-05-19 18:40] LABS: Potassium 4.5 mmol/L (3.5-5.1)
[2019-05-19 20:53] LABS: Glucose,Whole Blood 261 mg/dL (75-99)
[2019-05-19] MEDS: IPRATROPIUM-ALBUTEROL 3 ML NEB INHALATION PRN (21:32)
[2019-05-20] MEDS: SODIUM CHLORIDE 0.9% 1,000 ML IV SCH ×2 (03:32→11:59)
[2019-05-20] MEDS: VIT A,C & E-LUTEIN-MINERALS 1 EACH TAB PO SCH ×3 (03:32→20:00)
[2019-05-20] MEDS: LEVOTHYROXINE 125 MCG TAB PO SCH (05:30)
[2019-05-20 07:05] LABS: Glucose,Whole Blood 102 mg/dL (75-99)
[2019-05-20] MEDS: INSULN ASP PRT/INSULIN ASPART 100 UNIT/ML 10 ML VIAL SQ SCH ×2 (07:15→17:21)
[2019-05-20 07:19] LABS: Basophils # (A) 0.1 k/uL (0-0.2); Basophils % (A) 1 %; Eosinophils # (A) 0.2 k/uL (0-0.7); Eosinophils % (A) 2 %; HCT 30.5 % (34.0-46.0); HGB 10.6 gm/dL (11.4-16.0); Lymphocytes # (A) 2.1 k/uL (1.0-4.8); Lymphocytes % (A) 23 %; MCH 32.4 pg (25.0-35.0); MCHC 34.8 g/dL (31.0-37.0); MCV 93.1 fL (80.0-100.0); Mean Platelet Volume 6.4; Monocytes # (A) 0.6 k/uL (0-1.0); Monocytes % (A) 6 %; Neutrophils # (A) 6.1 k/uL (1.3-7.7); Neutrophils % (A) 66 %; Platelet Count 271 k/uL (150-450); RBC 3.27 m/uL (3.80-5.40); RDW 12.9 % (11.5-15.5); WBC 9.2 k/uL (3.8-10.6)
[2019-05-20 07:42] LABS: Calcium 9.2 mg/dL (8.4-10.2); Potassium 4.8 mmol/L (3.5-5.1)
[2019-05-20] MEDS: IPRATROPIUM-ALBUTEROL 3 ML NEB INHALATION PRN ×3 (08:18→19:44)
[2019-05-20] MEDS: ATENOLOL 50 MG TAB PO SCH (08:20)
[2019-05-20] MEDS: POTASSIUM CHLORIDE ER 20 MEQ TAB.ER PO SCH (08:25)
[2019-05-20] MEDS: CHOLECALCIFEROL 1,000 UNIT TAB PO SCH ×3 (08:25→20:01)
[2019-05-20] MEDS: ISOSORBIDE MONONITRATE ER 30 MG TAB.ER.24H PO SCH (08:25)
[2019-05-20] MEDS: FUROSEMIDE 20 MG TAB PO SCH (08:25)
[2019-05-20] MEDS: HEPARIN SODIUM,PORCINE 5,000 UNIT/ML 1 ML VIAL SQ SCH ×2 (08:25→20:01)
[2019-05-20] MEDS: PANTOPRAZOLE 40 MG TABLET PO SCH (08:26)
[2019-05-20] MEDS: ASPIRIN 81 MG PO SCH (08:26)
[2019-05-20] MEDS: aMILoride-HCTZ 5-50 mg 1 EACH TAB PO SCH (08:26)
--- NOTE | 2019-05-20 09:08 | P.PN ---
Subjective Progress Note Date: 05/20/19 This is an 84-year-old female who is admitted after a fall for right ankle and foot fractures. Patient is seen and evaluated at bedside today. Patient does complain of some soreness in the right ankle today and states that she has been working with physical therapy. Patient denies any new complaints today. Patient denies any fever/chills, numbness, weakness, tingling, abdominal pain, shortness of breath or chest pain. Objective - Vital Signs Vital signs: Vital Signs Temp 98.2 F 05/20/19 07:14 Pulse 56 L 05/20/19 08:29 Resp 15 05/20/19 07:14 BP 177/68 05/20/19 07:14 Pulse Ox 97 05/20/19 07:14 Intake & Output 05/19/19 05/20/19 05/20/19 18:59 06:59 18:59 Intake Total 360 180 Balance 360 180 Intake: Oral 360 180 Other: Voiding Method Bedside Commode Bedside Commode # Voids 2 1 # Bowel Movements 1 - Exam On exam patient is sitting comfortably in a chair in no acute distress. Patient's walking boot is removed and the skin is clean, dry and intact. There is mild swelling of the right foot and ankle. Calf is soft and nontender to palpation. There is no erythema, ecchymosis or warmth. Capillary refill is normal at less than 2 seconds. Compartments are soft. Sensation intact. The right lower extremity is warm and well perfused. Neurovascular status and circulatory status are intact. - Labs CBC & Chem 7: 05/20/19 06:21 05/20/19 06:18 Labs: Abnormal Lab Results - Last 24 Hours (Table) 05/19/19 05/19/19 05/19/19 Range/Units 11:55 16:11 17:05 RBC (3.80-5.40) m/uL Hgb (11.4-16.0) gm/dL Hct (34.0-46.0) % Sodium (137-145) mmol/L Chloride (98-107) mmol/L BUN (7-17) mg/dL Creatinine (0.52-1.04) mg/dL POC Glucose (mg/dL) 166 H 257 H 244 H (75-99) mg/dL 05/19/19 05/19/19 05/20/19 Range/Units 18:23 20:52 06:18 RBC (3.80-5.40) m/uL Hgb (11.4-16.0) gm/dL Hct (34.0-46.0) % Sodium 133 L 135 L (137-145) mmol/L Chloride 93 L (98-107) mmol/L BUN 25 H (7-17) mg/dL Creatinine 1.40 H (0.52-1.04) mg/dL POC Glucose (mg/dL) 261 H (75-99) mg/dL 05/20/19 05/20/19 Range/Units 06:21 07:02 RBC 3.27 L (3.80-5.40) m/uL Hgb 10.6 L (11.4-16.0) gm/dL Hct 30.5 L (34.0-46.0) % Sodium (137-145) mmol/L Chloride (98-107) mmol/L BUN (7-17) mg/dL Creatinine (0.52-1.04) mg/dL POC Glucose (mg/dL) 102 H (75-99) mg/dL Microbiology - Last 24 Hours (Table) 05/17/19 11:18 Urine Culture - Final Urine,Voided Escherichia coli Assessment and Plan Assessment: Asthma Diabetes mellitus Hypertension Rheumatoid arthritis Thyroid disorder Plan: 1. Recommend protected weightbearing to the right lower extremity with walker and walking boot. 2. Continue pain control. 3. Rest, ice and elevate the right lower extremity. 4. Appreciate input from medicine. 5. Recommend physical therapy for mobilization. 6. Likely discharge to rehab tomorrow.
[2019-05-20] MEDS ORDERED: traMADol 50 MG TAB PO PRN (09:11)
[2019-05-20] MEDS: IBUPROFEN 800 MG TAB PO PRN ×2 (10:07→16:17)
[2019-05-20 11:54] LABS: Glucose,Whole Blood 218 mg/dL (75-99)
[2019-05-20] MEDS ORDERED: LEVOFLOXACIN 250 MG TAB PO SCH (14:00)
[2019-05-20 17:04] LABS: Glucose,Whole Blood 329 mg/dL (75-99)
--- NOTE | 2019-05-20 17:52 | PN ---
PROGRESS NOTE DATE OF SERVICE: 05/20/2019. This 84-year-old woman who was admitted with a significant fracture of the right leg is being closely monitored. Conservative line of management is recommended. Patient had severe hypokalemia and multiple electrolyte abnormalities yesterday, which are improving. Orthopedic Surgery is following the patient with conservative line of management. PT/OT evaluation, possible ECF rehab. Multiple consultants are following the patient. Past medical history reviewed. PHYSICAL EXAMINATION: Patient is alert, oriented x3. Pulse 62, blood pressure 139/49, respiration 15, temperature 98.6, pulse ox 98% on room air. HEENT: Conjunctivae normal. NECK: No jugular venous distention. CARDIOVASCULAR SYSTEM: S1, S2 muffled. RESPIRATORY SYSTEM: Breath sounds diminished at the bases. No rhonchi. No crackles. ABDOMEN: Soft, non-tender. LEGS: Status post right leg fracture. NERVOUS SYSTEM: No focal deficit. LABS: WBC 9.2, hemoglobin 10.6, creatinine 1.40. ASSESSMENT: 1. Fall and right distal tibial fracture. 2. Gait dysfunction and severe pain. 3. Urinary tract infection, present on admission. 4. Hyperglycemia with diabetes mellitus, type 2, uncontrolled. 5. Hypokalemia, severe. 6. Hyponatremia. 7. Sinus bradycardia. 8. Increased white count. 9. Elevated creatine kinase. 10.History of asthma. 11.Gait dysfunction. 12.History of diabetes mellitus, type 2. 13.Hypertension. 14.History of degenerative joint disease. 15.History of hypothyroidism. 16.History of bladder cancer. 17.History of cholecystectomy. 18.History of hysterectomy. 19.Obesity with body mass index of 32.6. 20.NO CODE, NO CPR, NO VENT. RECOMMENDATIONS AND DISCUSSION: I recommend to continue current medications, continue with the monitoring, symptomatic treatment. I would recommend PT/OT evaluation, pain management. Guarded prognosis because of multiple complex medical issues. Further recommendations to follow. MMODL / IJN: [id number] / MTDD
[2019-05-20 20:20] LABS: Glucose,Whole Blood 280 mg/dL (75-99)
[2019-05-21] MEDS: SODIUM CHLORIDE 0.9% 1,000 ML IV SCH (02:14)
[2019-05-21] MEDS: LEVOTHYROXINE 125 MCG TAB PO SCH (05:29)
[2019-05-21 06:50] LABS: Glucose,Whole Blood 105 mg/dL (75-99)
[2019-05-21] MEDS: IPRATROPIUM-ALBUTEROL 3 ML NEB INHALATION PRN ×2 (07:46→11:03)
[2019-05-21 08:11] VITALS: BP 153/52; RESP 16; TEMP 98
[2019-05-21] MEDS ORDERED: INSULN ASP PRT/INSULIN ASPART 100 UNIT/ML 10 ML VIAL SQ ONE (08:21)
[2019-05-21] MEDS: INSULN ASP PRT/INSULIN ASPART 100 UNIT/ML 10 ML VIAL SQ SCH (08:22)
--- NOTE | 2019-05-21 08:38 | P.DS ---
Providers Date of admission: 05/18/19 15:19 Expected date of discharge: 05/21/19 Attending physician: Narciso Benz Consults: 05/17/19 10:12 Consult Physician Routine Consulting Provider: Fernando Rose Consult Reason/Comments: Medical evaluation/ care Do you want consulting provider notified?: Yes 05/17/19 17:29 Consult Physician Routine Consulting Provider: Neymar Mcgill Consult Reason/Comments: asthma, knew the pt Do you want consulting provider notified?: Yes Primary care physician: Neymar Mcgill - Discharge Diagnosis(es) (1) Fall Current Visit: Yes Status: Acute (2) Fracture of ankle Current Visit: Yes Status: Acute (3) Fracture of foot Current Visit: Yes Status: Acute Hospital Course: This is a 84-year-old female who presented to the hospital after sustaining a fall at home and she was found to have distal tibia and fibula and multiple foot fractures. Closed treatment in a boot was recommended. She was admitted for skilled rehab placement. On the day of discharge, patient is sitting in a chair at the bedside in no acute distress. She is currently in a but her boot is at the bedside. There mild swelling and ecchymosis to the right foot and toes. Calf is soft and nontender. She is able to slightly wiggle her toes. Foot is warm and well perfused capillary refill less than 2 seconds. Neurological status is intact. The patient is orthopedically stable for discharge today. Pertinent Studies: Laboratory Tests 05/20/19 05/20/19 05/21/19 06:18 06:21 06:49 WBC 9.2 RBC 3.27 L Hgb 10.6 L Hct 30.5 L Sodium 135 L BUN 25 H Creatinine 1.40 H POC Glucose (mg/dL) 105 H Patient Condition at Discharge: Stable Plan - Discharge Summary Discharge Rx Participant: No New Discharge Prescriptions: New Ibuprofen 800 mg PO TID PRN #90 tablet PRN Reason: Pain traMADol HCl [Ultram] 1 tablet PO Q6H PRN #45 tab PRN Reason: Pain Sennosides [Senokot] 2 tab PO HS PRN #30 tablet PRN Reason: Constipation No Action Cholecalciferol [Vitamin D3 (25 Mcg = 1000 Iu)] 1,000 unit PO TID Insulin NPH Hum/Reg Insulin Hm [NovoLIN 70-30 100 UNIT/ML VIAL] 65 unit SQ BID Aspirin 81 mg PO DAILY Potassium Chloride [Klor-Con 20] 20 meq PO DAILY Levothyroxine Sodium [Synthroid] 125 mcg PO DAILY Isosorbide Mononitrate [Isosorbide Mononitrate ER] 30 mg PO DAILY Furosemide [Lasix] 20 mg PO DAILY Atenolol 100 mg PO DAILY aMILoride-HCTZ 5-50 mg [Moduretic 5-50] 1 tab PO DAILY Ibuprofen [Motrin] 800 mg PO Q6H PRN PRN Reason: Pain Vit C/E/Zn/Coppr/Lutein/Zeaxan [Preservision Areds 2 Softgel] 1 cap PO BID Discharge Medication List Aspirin 81 mg PO DAILY 10/26/17 [History] Atenolol 100 mg PO DAILY 10/26/17 [History] Cholecalciferol [Vitamin D3 (25 Mcg = 1000 Iu)] 1,000 unit PO TID 10/26/17 [History] Furosemide [Lasix] 20 mg PO DAILY 10/26/17 [History] Insulin NPH Hum/Reg Insulin Hm [NovoLIN 70-30 100 UNIT/ML VIAL] 65 unit SQ BID 10/26/17 [History] Isosorbide Mononitrate [Isosorbide Mononitrate ER] 30 mg PO DAILY 10/26/17 [History] Levothyroxine Sodium [Synthroid] 125 mcg PO DAILY 10/26/17 [History] Potassium Chloride [Klor-Con 20] 20 meq PO DAILY 10/26/17 [History] aMILoride-HCTZ 5-50 mg [Moduretic 5-50] 1 tab PO DAILY 10/26/17 [History] Ibuprofen [Motrin] 800 mg PO Q6H PRN 05/17/19 [History] Vit C/E/Zn/Coppr/Lutein/Zeaxan [Preservision Areds 2 Softgel] 1 cap PO BID 05/17/19 [History] Ibuprofen 800 mg PO TID PRN #90 tablet 05/20/19 [Rx] Sennosides [Senokot] 2 tab PO HS PRN #30 tablet 05/20/19 [Rx] traMADol HCl [Ultram] 1 tablet PO Q6H PRN #45 tab 05/20/19 [Rx] Follow up Appointment(s)/Referral(s): Neymar Mcgill DO [Primary Care Provider] - 1-2 days Narciso Benz DO [Doctor of Osteopathic Medicine] - 10 Days [facility] Visiting Nurse, [NON-STAFF] - Activity/Diet/Wound Care/Special Instructions: Recommended protected weightbearing to the right lower extremity with a walker a nd walking boot. Recommend that patient keep as much weight off her right leg as possible. Recommend that patient maintain walking boot at all times except for hygiene and skin checks. May open boot when resting for ice and elevation. Rest, ice and elevate the right lower extremity for pain and swelling. Please take medications as prescribed. Please call [facility] with any questions or concerns, . Discharge Disposition: TRANSFER TO SNF/ECF
[2019-05-21] MEDS: HEPARIN SODIUM,PORCINE 5,000 UNIT/ML 1 ML VIAL SQ SCH (09:25)
[2019-05-21] MEDS: aMILoride-HCTZ 5-50 mg 1 EACH TAB PO SCH (09:26)
[2019-05-21] MEDS: VIT A,C & E-LUTEIN-MINERALS 1 EACH TAB PO SCH (09:26)
[2019-05-21] MEDS: ISOSORBIDE MONONITRATE ER 30 MG TAB.ER.24H PO SCH (09:26)
[2019-05-21] MEDS: POTASSIUM CHLORIDE ER 20 MEQ TAB.ER PO SCH (09:26)
[2019-05-21] MEDS: FUROSEMIDE 20 MG TAB PO SCH (09:26)
[2019-05-21] MEDS: ASPIRIN 81 MG PO SCH (09:27)
[2019-05-21] MEDS: PANTOPRAZOLE 40 MG TABLET PO SCH (09:27)
[2019-05-21] MEDS: ATENOLOL 50 MG TAB PO SCH ×2 (09:27→09:32)
[2019-05-21] MEDS: CHOLECALCIFEROL 1,000 UNIT TAB PO SCH (09:27)
[2019-05-21 11:06] VITALS: PULSE 56
[2019-05-21] MEDS: IBUPROFEN 800 MG TAB PO PRN (11:52)
[2019-05-21 12:40] LABS: Glucose,Whole Blood 167 mg/dL (75-99)
--- NOTE | 2019-05-21 17:47 | PN ---
PROGRESS NOTE DATE OF SERVICE: 05/21/2019. This 84-year-old woman who was admitted after a fall and right distal tibial fracture is improving significantly. No chest pain. No palpitations. No fever. PHYSICAL EXAMINATION: Alert and oriented x3. Pulse 61, blood pressure 153/52, respirations 16, temperature 98 degrees, pulse ox 94% on room air. HEENT: Conjunctivae normal. NECK: No jugular venous distention. CARDIOVASCULAR SYSTEM: S1, S2 muffled. RESPIRATORY SYSTEM: Breath sounds diminished at the bases. Bilateral scattered rhonchi and crackles. ABDOMEN: Soft, non-tender. LEGS: No edema. No swelling. NERVOUS SYSTEM: No focal deficit. LABS: WBC 9.2, hemoglobin 10.6. ASSESSMENT: 1. Fall and right distal tibial fracture. 2. Gait dysfunction and severe pain. 3. Urinary tract infection, present on admission. 4. Hypoglycemia with diabetes mellitus, type 2, uncontrolled, improved. 5. Hypokalemia, severe. 6. Hyponatremia. 7. Sinus bradycardia. 8. Increased white count. 9. Elevated creatine kinase. 10.History of asthma. 11.History of gait dysfunction. 12.History of diabetes mellitus, type 2. 13.Hypertension. 14.History of degenerative joint disease. 15.History of hypothyroidism. 16.History of bladder cancer. 17.History of cholecystectomy. 18.History of hysterectomy. 19.Obesity with body mass index 32.6. 20.NO CODE NO CPR NO VENT. RECOMMENDATIONS AND DISCUSSION: I recommend to continue current medications, continue with the monitoring, symptomatic treatment. Otherwise at this time I recommend continuing the reduced dose of insulin 50 and 40. Continue to monitor. Otherwise, monitor Accu-Cheks closely and follow closely with Dr. Mcgill. [facility] rehab in [place] with Dr. Barba. See orders for further details. Further recommendations to follow. MMODL / IJN: [id number] /
== END 2019-05-21 13:37 | DRG 563 ==
LOC: EC 07:39 → 4MS4W 10:20 → 4SSUR 10:29 → OBSVTOIN 05-18 15:19 → 4SSUR 05-20 23:25
PROVIDERS: ADMIT Orthopaedic Surgery; ATTEND Orthopaedic Surgery
DX: S92.331A Displaced fracture of third metatarsal bone, right foot, initial encounter for closed fracture (principal); N39.0 Urinary tract infection, site not specified; E87.1 Hypo-osmolality and hyponatremia; S92.341A Displaced fracture of fourth metatarsal bone, right foot, initial encounter for closed fracture; S92.351A Displaced fracture of fifth metatarsal bone, right foot, initial encounter for closed fracture; S82.51XA Displaced fracture of medial malleolus of right tibia, initial encounter for closed fracture; S82.831A Other fracture of upper and lower end of right fibula, initial encounter for closed fracture; W06.XXXA Fall from bed, initial encounter; Y92.009 Unspecified place in unspecified non-institutional (private) residence as the place of occurrence of the external cause; B96.20 Unspecified Escherichia coli [E. coli] as the cause of diseases classified elsewhere; E11.649 Type 2 diabetes mellitus with hypoglycemia without coma; E11.65 Type 2 diabetes mellitus with hyperglycemia; E66.9 Obesity, unspecified; E87.6 Hypokalemia; E89.0 Postprocedural hypothyroidism; I10 Essential (primary) hypertension; J45.909 Unspecified asthma, uncomplicated; M06.9 Rheumatoid arthritis, unspecified; Z68.32 Body mass index [BMI] 32.0-32.9, adult; Z79.4 Long term (current) use of insulin; Z79.82 Long term (current) use of aspirin; Z79.890 Hormone replacement therapy; Z79.899 Other long term (current) drug therapy; Z80.9 Family history of malignant neoplasm, unspecified; Z85.51 Personal history of malignant neoplasm of bladder; Z90.49 Acquired absence of other specified parts of digestive tract; Z90.710 Acquired absence of both cervix and uterus; Z88.5 Allergy status to narcotic agent; Z88.0 Allergy status to penicillin; Z79.1 Long term (current) use of non-steroidal anti-inflammatories (NSAID)
CPT/HCPCS: 29515; 71045; 80048; 80051; 80053; 81001; 82550; 83735; 85025; 87077; 87086; 87186; 93005; 94640; 96374; 99285

== ENCOUNTER 2019-05-21 23:29 | Inpatient (IN) | payer MEDICARE, BC ==
--- NOTE | 2019-05-21 23:41 | ED ---
General Adult HPI - General Stated complaint: Hypertension Time Seen by Provider: 05/21/19 23:40 Source: patient, family, EMS Mode of arrival: EMS - History of Present Illness Initial comments: This patient is an 84-year-old woman who [facility] for not feeling well. She states that mainly this is in reference to a generalized headache that she has had since probably before 6 PM. She describes as an aching, moderately severe. It effects the whole head, and she has not noted worsening or relieving factors. She states it is not the worst headache that she has ever had. She denies neurologic symptoms associated with this. In addition, she states that her blood sugar has been up and down while at the [facility]. Patient states that the food there is different and her insulin regimen is different than it had been at home so her blood sugar has varied between 50 and up over 300. An addition patient had some elevated blood pressures at the [facility]. The patient is therefore rehabilitation stents. She had a fall with distal tib-fib and foot fractures on the right side. She had been in the hospital . Treatment of her fractures is nonsurgical, she is wearing a boot. Onset/Timin -: hour(s) Location: head Radiation: non-radiation Quality: dull, constant Consistency: constant Improves with: none Worsens with: none Associated Symptoms: malaise Treatments Prior to Arrival: none - Related Data Home Medications Medication Instructions Recorded Confirmed Aspirin 81 mg PO DAILY 10/26/17 05/17/19 Atenolol 100 mg PO DAILY 10/26/17 05/17/19 Cholecalciferol [Vitamin D3 (25 1,000 unit PO TID 10/26/17 05/17/19 Mcg = 1000 Iu)] Furosemide [Lasix] 20 mg PO DAILY 10/26/17 05/17/19 Isosorbide Mononitrate [Isosorbide 30 mg PO DAILY 10/26/17 05/17/19 Mononitrate ER] Levothyroxine Sodium [Synthroid] 125 mcg PO DAILY 10/26/17 05/17/19 Potassium Chloride [Klor-Con 20] 20 meq PO DAILY 10/26/17 05/17/19 aMILoride-HCTZ 5-50 mg [Moduretic 1 tab PO DAILY 10/26/17 05/17/19 5-50] Vit C/E/Zn/Coppr/Lutein/Zeaxan 1 cap PO BID 05/17/19 05/17/19 [Preservision Areds 2 Softgel] Previous Rx's Medication Instructions Recorded Ibuprofen 800 mg PO TID PRN #90 tablet 05/20/19 Sennosides [Senokot] 2 tab PO HS PRN #30 tablet 05/20/19 traMADol HCl [Ultram] 1 tablet PO Q6H PRN #45 tab 05/20/19 Insuln Asp Prt/Insulin Aspart 40 unit SQ AC-SUPPER vial 05/21/19 [NovoLOG MIX 70-30 VIAL] Insuln Asp Prt/Insulin Aspart 50 unit SQ AC-BRKFST vial 05/21/19 [NovoLOG MIX 70-30 VIAL] Ipratropium-Albuterol Nebulize 3 ml INHALATION RT-TID PRN 05/21/19 [Duoneb 0.5 mg-3 mg/3 ml Soln] ampul.neb Levofloxacin [Levaquin] 250 mg PO Q24H tab 05/21/19 Pantoprazole [Protonix] 40 mg PO AC-BRKFST tablet. 05/21/19 Allergies Allergy/AdvReac Type Severity Reaction Status Date / Time Penicillins Allergy Unknown Verified 05/21/19 23:40 morphine AdvReac Hallucinati Verified 05/21/19 23:40 ons Review of Systems ROS Statement: Those systems with pertinent positive or pertinent negative responses have been documented in the HPI. ROS Other: All systems not noted in ROS Statement are negative. Constitutional: Denies: fever, chills, weakness Respiratory: Reports: cough (Patient has chronic cough and wheeze due to asthma/COPD), wheezes Cardiovascular: Denies: chest pain Gastrointestinal: Reports: nausea. Denies: abdominal pain, vomiting, melena, hematochezia Genitourinary: Denies: dysuria, hematuria Musculoskeletal: Denies: back pain Skin: Denies: rash Neurological: Reports: headache. Denies: weakness, numbness, paresthesias Past Medical History Past Medical History: Asthma, Diabetes Mellitus, Hypertension, Rheumatoid Arthritis (RA), Thyroid Disorder History of Any Multi-Drug Resistant Organisms: None Reported Past Surgical History: Bladder Surgery, Cholecystectomy, Hysterectomy Additional Past Surgical History / Comment(s): thyroid removed Past Psychological History: No Psychological Hx Reported Smoking Status: Never smoker Past Alcohol Use History: Unable to Obtain Past Drug Use History: None Reported - Past Family History Father Family Medical History: Cancer General Exam General appearance: alert, in no apparent distress Head exam: Present: atraumatic, normocephalic Eye exam: Present: normal appearance. Absent: scleral icterus, conjunctival injection ENT exam: Present: normal oropharynx Neck exam: Present: normal inspection, full ROM. Absent: tenderness Respiratory exam: Present: wheezes. Absent: respiratory distress, rales, rhonchi, stridor, chest wall tenderness Cardiovascular Exam: Present: regular rate, normal rhythm, normal heart sounds. Absent: systolic murmur, diastolic murmur, rubs, gallop GI/Abdominal exam: Present: soft. Absent: distended, tenderness, guarding, rebound, rigid, mass Extremities exam: Present: normal inspection, normal capillary refill, other (Orthopedic boot to the right ankle and foot). Absent: pedal edema Neurological exam: Present: alert, oriented X3, CN II-XII intact. Absent: motor sensory deficit Skin exam: Present: warm, dry, intact, normal color. Absent: rash Course Vital Signs 05/21/19 05/22/19 05/22/19 23:37 00:35 01:15 Temperature 97.6 F Pulse Rate 66 76 58 L Pulse Rate [ Pulse Oximetery ] Respiratory 18 18 18 Rate Blood Pressure 207/77 192/105 181/70 Blood Pressure [Left Arm] O2 Sat by Pulse 97 96 99 Oximetry 05/22/19 05/22/19 05/22/19 01:40 01:51 01:56 Temperature Pulse Rate 64 61 69 Pulse Rate [ Pulse Oximetery ] Respiratory 16 Rate Blood Pressure 192/71 Blood Pressure [Left Arm] O2 Sat by Pulse Oximetry 05/22/19 05/22/19 02:44 03:59 Temperature 98 F 98.1 F Pulse Rate 66 Pulse Rate [ 58 L Pulse Oximetery ] Respiratory 18 19 Rate Blood Pressure 155/65 Blood Pressure 145/61 [Left Arm] O2 Sat by Pulse 94 L 96 Oximetry EKG Findings - EKG Results: EKG: interpreted by ERMD, WNL, sinus rhythm (Rate 64 bpm), normal axis, normal QRS, normal ST/T - ME, Pacemaker, Normal: Normal tracing: normal tracing Medical Decision Making - Medical Decision Making Patient is a 4-year-old woman here with hypertension and also poorly controlled blood sugar. The patient is refusing discharge back to the rehab facility. She states that they have not been administering her insulin nor other medications. Patient be admitted to have blood pressure and sugar control and arrange al ternate discharge location - Lab Data Result diagrams: 05/22/19 00:34 05/22/19 00:34 Lab Results 05/22/19 05/22/19 05/22/19 Range/Units 00:12 00:34 00:34 WBC 9.1 (3.8-10.6) k/uL RBC 3.66 L (3.80-5.40) m/uL Hgb 11.5 (11.4-16.0) gm/dL Hct 33.7 L (34.0-46.0) % MCV 92.2 (80.0-100.0) fL MCH 31.3 (25.0-35.0) pg MCHC 34.0 (31.0-37.0) g/dL RDW 12.8 (11.5-15.5) % Plt Count 302 (150-450) k/uL Neutrophils % 63 % Lymphocytes % 23 % Monocytes % 7 % Eosinophils % 4 % Basophils % 1 % Neutrophils # 5.7 (1.3-7.7) k/uL Lymphocytes # 2.1 (1.0-4.8) k/uL Monocytes # 0.6 (0-1.0) k/uL Eosinophils # 0.4 (0-0.7) k/uL Basophils # 0.1 (0-0.2) k/uL Sodium 132 L (137-145) mmol/L Potassium 4.4 (3.5-5.1) mmol/L Chloride 95 L (98-107) mmol/L Carbon Dioxide 26 (22-30) mmol/L Anion Gap 11 mmol/L BUN 23 H (7-17) mg/dL Creatinine 1.27 H (0.52-1.04) mg/dL Est GFR (CKD-EPI)AfAm 45 (>60 ml/min/1.73 sqM) Est GFR (CKD-EPI)NonAf 39 (>60 ml/min/1.73 sqM) Glucose 286 H (74-99) mg/dL Calcium 9.4 (8.4-10.2) mg/dL Total Bilirubin 0.6 (0.2-1.3) mg/dL AST 49 H (14-36) U/L ALT 42 (9-52) U/L Alkaline Phosphatase 103 (38-126) U/L Troponin I (0.000-0.034) ng/mL Total Protein 7.0 (6.3-8.2) g/dL Albumin 3.8 (3.5-5.0) g/dL Urine Color Light Yellow Urine Appearance Clear (Clear) Urine pH 6.0 (5.0-8.0) Ur Specific [place] 1.011 (1.001-1.035) Urine Protein Negative (Negative) Urine Glucose (UA) Negative (Negative) Urine Ketones Negative (Negative) Urine Blood Negative (Negative) Urine Nitrite Negative (Negative) Urine Bilirubin Negative (Negative) Urine Urobilinogen <2.0 (<2.0) mg/dL Ur Leukocyte Esterase Moderate H (Negative) Urine RBC 1 (0-5) /hpf Urine WBC 12 H (0-5) /hpf Ur Squamous Epith Cells 3 (0-4) /hpf Urine Bacteria Rare H (None) /hpf Hyaline Casts 7 H (0-2) /lpf Urine Mucus Rare H (None) /hpf 05/22/19 Range/Units 00:34 WBC (3.8-10.6) k/uL RBC (3.80-5.40) m/uL Hgb (11.4-16.0) gm/dL Hct (34.0-46.0) % MCV (80.0-100.0) fL MCH (25.0-35.0) pg MCHC (31.0-37.0) g/dL RDW (11.5-15.5) % Plt Count (150-450) k/uL Neutrophils % % Lymphocytes % % Monocytes % % Eosinophils % % Basophils % % Neutrophils # (1.3-7.7) k/uL Lymphocytes # (1.0-4.8) k/uL Monocytes # (0-1.0) k/uL Eosinophils # (0-0.7) k/uL Basophils # (0-0.2) k/uL Sodium (137-145) mmol/L Potassium (3.5-5.1) mmol/L Chloride (98-107) mmol/L Carbon Dioxide (22-30) mmol/L Anion Gap mmol/L BUN (7-17) mg/dL Creatinine (0.52-1.04) mg/dL Est GFR (CKD-EPI)AfAm (>60 ml/min/1.73 sqM) Est GFR (CKD-EPI)NonAf (>60 ml/min/1.73 sqM) Glucose (74-99) mg/dL Calcium (8.4-10.2) mg/dL Total Bilirubin (0.2-1.3) mg/dL AST (14-36) U/L ALT (9-52) U/L Alkaline Phosphatase (38-126) U/L Troponin I 0.031 (0.000-0.034) ng/mL Total Protein (6.3-8.2) g/dL Albumin (3.5-5.0) g/dL Urine Color Urine Appearance (Clear) Urine pH (5.0-8.0) Ur Specific [place] (1.001-1.035) Urine Protein (Negative) Urine Glucose (UA) (Negative) Urine Ketones (Negative) Urine Blood (Negative) Urine Nitrite (Negative) Urine Bilirubin (Negative) Urine Urobilinogen (<2.0) mg/dL Ur Leukocyte Esterase (Negative) Urine RBC (0-5) /hpf Urine WBC (0-5) /hpf Ur Squamous Epith Cells (0-4) /hpf Urine Bacteria (None) /hpf Hyaline Casts (0-2) /lpf Urine Mucus (None) /hpf Disposition Clinical Impression: Hyperglycemia, Hypertension, Headache Disposition: ADMITTED IP TO THIS [facility] Condition: Fair Is patient prescribed a controlled substance at d/c from ED?: No
[2019-05-22] MEDS ORDERED: ATENOLOL 50 MG TAB PO STA (00:11)
[2019-05-22 00:46] LABS: Basophils # (A) 0.1 k/uL (0-0.2); Basophils % (A) 1 %; Eosinophils # (A) 0.4 k/uL (0-0.7); Eosinophils % (A) 4 %; HCT 33.7 % (34.0-46.0); HGB 11.5 gm/dL (11.4-16.0); Lymphocytes # (A) 2.1 k/uL (1.0-4.8); Lymphocytes % (A) 23 %; MCH 31.3 pg (25.0-35.0); MCV 92.2 fL (80.0-100.0); Mean Platelet Volume 6.6; Monocytes # (A) 0.6 k/uL (0-1.0); Monocytes % (A) 7 %; Neutrophils # (A) 5.7 k/uL (1.3-7.7); Neutrophils % (A) 63 %; Platelet Count 302 k/uL (150-450); RBC 3.66 m/uL (3.80-5.40); RDW 12.8 % (11.5-15.5); WBC 9.1 k/uL (3.8-10.6)
--- NOTE | 2019-05-22 00:54 | CT ---
EXAMINATION TYPE: CT brain miguelangel mchugh DATE OF EXAM: 05/22/2019 COMPARISON: 10/26/2017 HISTORY: fall x4 days ago. occipital headache. CT DLP: 1248 mGycm Automated exposure control for dose reduction was used. TECHNIQUE: CT scan of the head and cervical spine are performed without contrast. FINDINGS: There is opacification left maxillary sinus with calcification and wall thickening. Silvio rium is intact. There is diffuse cerebral cortical atrophy. There is no mass effect nor midline shift . There is no sign of intracranial hemorrhage. Calvarium is intact. There is some mild white matter h ypodensity right posterior frontal lobe. Cervical vertebra have normal alignment for age. There is degenerative disc space narrowing and spur formation from C4 to T1. There is no compression fracture. Facet joints are intact. There is mild mul tilevel hypertrophic facet arthropathy. The skull base is intact. IMPRESSION: Cerebral atrophy and chronic small vessel ischemia. No acute intracranial abnormality. No change. Chr onic left maxillary sinusitis. Spondylotic changes in the cervical spine. No fracture. No change.
[2019-05-22 00:57] LABS: Albumin 3.8 g/dL (3.5-5.0); Calcium 9.4 mg/dL (8.4-10.2); Potassium 4.4 mmol/L (3.5-5.1); Total Bilirubin 0.6 mg/dL (0.2-1.3)
[2019-05-22] MEDS ORDERED: INSULIN REGULAR 100 UNIT/ML VIAL SQ STA (01:01)
[2019-05-22] MEDS ORDERED: ALBUTEROL NEBULIZED 2.5 MG/3 ML INHALATION STA (01:30)
[2019-05-22] MEDS ORDERED: cloNIDine HCL 0.2 MG TAB PO STA (01:35)
[2019-05-22 01:38] LABS: Appearance,Urine Clear (Clear); Bacteria,Urine Rare /hpf; Bilirubin,Urine Negative (Negative); Blood,Urine Negative (Negative); Color,Urine Light Yellow; Glucose,Urine (UA) Negative (Negative); Hyaline Casts,Urine 7 /lpf (0-2); Ketones,Urine Negative (Negative); Leukocyte Esterase,Urine Moderate (Negative); Mucus,Urine Rare /hpf; Nitrite,Urine Negative (Negative); Protein,Urine Negative (Negative); RBC,Urine 1 /hpf (0-5); Specific Gravity,Urine 1.011 (1.001-1.035); Squamous Epithelial Cell,Urine 3 /hpf (0-4); Urobilinogen,Urine <2.0 mg/dL (<2.0); WBC,Urine 12 /hpf (0-5)
--- NOTE | 2019-05-22 02:01 | XR ---
EXAMINATION TYPE: XR chest 1V portable DATE OF EXAM: 05/22/2019 COMPARISON: 05/17/2019 HISTORY: Cough TECHNIQUE: Single frontal view of the chest is obtained. FINDINGS: There is some coarsening of the lung markings in the lower lung pascual. There is no heart failure. Heart size is normal. Costophrenic angles are clear. IMPRESSION: Coarse interstitial density unchanged and more likely related to pulmonary fibrosis. Nor mal heart.
[2019-05-22] MEDS ORDERED: IBUPROFEN 400 MG TAB PO STA (02:21)
[2019-05-22] MEDS ORDERED: NALOXONE 0.4 MG/ML 1 ML VIAL IV PRN (02:38)
[2019-05-22] MEDS: SODIUM CHLORIDE 0.9% 1,000 ML IV SCH (02:48)
[2019-05-22 02:57] LABS: Glucose,Whole Blood 286 mg/dL (75-99)
[2019-05-22] MEDS: LEVOTHYROXINE 125 MCG TAB PO SCH (05:54)
[2019-05-22 07:21] LABS: Glucose,Whole Blood 182 mg/dL (75-99)
[2019-05-22] MEDS: ATENOLOL 50 MG TAB PO SCH (08:48)
[2019-05-22] MEDS: POTASSIUM CHLORIDE ER 20 MEQ TAB.ER PO SCH (08:48)
[2019-05-22] MEDS: FUROSEMIDE 20 MG TAB PO SCH (08:48)
[2019-05-22] MEDS: aMILoride-HCTZ 5-50 mg 1 EACH TAB PO SCH (08:48)
[2019-05-22] MEDS: LEVOFLOXACIN 250 MG TAB PO SCH (08:48)
[2019-05-22] MEDS: CHOLECALCIFEROL 1,000 UNIT TAB PO SCH ×3 (08:48→21:08)
[2019-05-22] MEDS: ASPIRIN 81 MG PO SCH (08:48)
[2019-05-22] MEDS: INSULN ASP PRT/INSULIN ASPART 100 UNIT/ML 10 ML VIAL SQ SCH ×2 (08:49→17:16)
[2019-05-22] MEDS: PANTOPRAZOLE 40 MG TABLET PO SCH (08:49)
[2019-05-22] MEDS: ISOSORBIDE MONONITRATE ER 30 MG TAB.ER.24H PO SCH (08:49)
[2019-05-22] MEDS ORDERED: SENNOSIDES 8.6 MG TAB PO PRN (09:00)
[2019-05-22 11:44] LABS: Glucose,Whole Blood 60 mg/dL (75-99)
[2019-05-22] MEDS: IBUPROFEN 800 MG TAB PO PRN ×2 (11:57→21:11)
[2019-05-22 12:02] LABS: Glucose,Whole Blood 73 mg/dL (75-99)
[2019-05-22 16:49] LABS: Glucose,Whole Blood 105 mg/dL (75-99)
[2019-05-22 20:55] LABS: Glucose,Whole Blood 193 mg/dL (75-99)
[2019-05-23] MEDS: HEPARIN SODIUM,PORCINE 5,000 UNIT/ML 1 ML VIAL SQ SCH ×4 (00:27→23:13)
[2019-05-23] MEDS: SODIUM CHLORIDE 0.9% 1,000 ML IV SCH (01:11)
[2019-05-23] MEDS: LEVOTHYROXINE 125 MCG TAB PO SCH (06:03)
[2019-05-23 07:08] LABS: Glucose,Whole Blood 188 mg/dL (75-99)
[2019-05-23] MEDS: FUROSEMIDE 20 MG TAB PO SCH (08:24)
[2019-05-23] MEDS: aMILoride-HCTZ 5-50 mg 1 EACH TAB PO SCH (08:24)
[2019-05-23] MEDS: INSULN ASP PRT/INSULIN ASPART 100 UNIT/ML 10 ML VIAL SQ SCH ×2 (08:24→17:47)
[2019-05-23] MEDS: PANTOPRAZOLE 40 MG TABLET PO SCH (08:25)
[2019-05-23] MEDS: IBUPROFEN 800 MG TAB PO PRN ×3 (08:25→23:13)
[2019-05-23] MEDS: POTASSIUM CHLORIDE ER 20 MEQ TAB.ER PO SCH (08:25)
[2019-05-23] MEDS: ASPIRIN 81 MG PO SCH (08:25)
[2019-05-23] MEDS: ATENOLOL 50 MG TAB PO SCH (08:25)
[2019-05-23] MEDS: ISOSORBIDE MONONITRATE ER 30 MG TAB.ER.24H PO SCH (08:25)
[2019-05-23] MEDS: LEVOFLOXACIN 250 MG TAB PO SCH (08:25)
[2019-05-23] MEDS: CHOLECALCIFEROL 1,000 UNIT TAB PO SCH ×3 (08:25→21:12)
--- NOTE | 2019-05-23 11:09 | P.HPIM ---
History of Present Illness H&P Date: 05/22/19 Chief Complaint: Headache Patient is a 84-year-old female with known history of hypertension, diabetes type 2, rheumatoid arthritis and recent history of fall at home and found to have distal tibia fibular fracture and multiple foot fractures. Patient was seen by orthopedic's and patient had closed treatment and boot which was recommended by orthopedic surgery. Patient was discharged to rehab yesterday. Patient says that she developed generalized headache and since 6 PM yesterday and was sent back to the hospital. She describes as an aching, moderately severe. It effects the whole head, and she has not noted worsening or relieving factors. She states it is not the worst headache that she has ever had. She denies neurologic symptoms associated with this. In addition, she states that her blood sugar has been up and down while at the long-term. Patient states that the food there is different and her insulin regimen is different than it had been at home so her blood sugar has varied between 50 and up over 300. An addition patient had some elevated blood pressures at the long-term. Denied any fever or chills. No nausea vomiting or abdominal pain. No chest pain or shortness of breath. Patient is being treated for a urinary tract infection. CT brain and cervical spine showed cerebral atrophy and chronic small vessel ischemia. No acute intracranial abnormality noted. Chronic left maxillary sinusitis. Spondylitic change in the cervical spine. No fracture. Chest x-ray showed worsening interstitial density unchanged and more likely rel ated to pulmonary fibrosis. Normal heart. Review of Systems Constitutional: Patient denies any fever or chills . No generalized weakness or weight loss. Abdomen: Patient denied nausea vomiting and diarrhea and abdominal pain. Cardiovascular: Patient denies any chest pain or short of breath no palpitations. Respiratory: patient denied any cough is from production. No shortness of breath Neurologic: Patient denied any numbness or tingling. Patient does have headache. Musculoskeletal: Patient denies any complaints of joint swelling or deformity. Headache. Skin: Negative Psychiatric: Negative Endocrine: No heat or cold intolerance. No recent weight gain. Genitourinary: No dysuria or hematuria. All other 14 point ROS negative except the above Past Medical History Past Medical History: Asthma, Diabetes Mellitus, Hypertension, Rheumatoid Arthritis (RA), Thyroid Disorder Additional Past Medical History / Comment(s): Fall out of bed and fx right leg History of Any Multi-Drug Resistant Organisms: None Reported Past Surgical History: Bladder Surgery, Cholecystectomy, Hysterectomy Additional Past Surgical History / Comment(s): thyroid removed Past Psychological History: No Psychological Hx Reported Smoking Status: Never smoker Past Alcohol Use History: Unable to Obtain Past Drug Use History: None Reported - Past Family History Father Family Medical History: Cancer Medications and Allergies Home Medications Medication Instructions Recorded Confirmed Type Aspirin 81 mg PO DAILY 10/26/17 05/22/19 History Atenolol 100 mg PO DAILY 10/26/17 05/22/19 History Cholecalciferol [Vitamin D3 (25 1,000 unit PO TID 10/26/17 05/22/19 History Mcg = 1000 Iu)] Furosemide [Lasix] 20 mg PO DAILY 10/26/17 05/22/19 History Isosorbide Mononitrate [Isosorbide 30 mg PO DAILY 10/26/17 05/22/19 History Mononitrate ER] Levothyroxine Sodium [Synthroid] 125 mcg PO DAILY 10/26/17 05/22/19 History Potassium Chloride [Klor-Con 20] 20 meq PO DAILY 10/26/17 05/22/19 History aMILoride-HCTZ 5-50 mg [Moduretic 1 tab PO DAILY 10/26/17 05/22/19 History 5-50] Vit C/E/Zn/Coppr/Lutein/Zeaxan 1 cap PO BID 05/17/19 05/22/19 History [Preservision Areds 2 Softgel] Ibuprofen 800 mg PO TID PRN #90 tablet 05/20/19 05/22/19 Rx Insuln Asp Prt/Insulin Aspart 40 unit SQ AC-SUPPER vial 05/21/19 05/22/19 Rx [NovoLOG MIX 70-30 VIAL] Insuln Asp Prt/Insulin Aspart 50 unit SQ AC-BRKFST vial 05/21/19 05/22/19 Rx [NovoLOG MIX 70-30 VIAL] Ipratropium-Albuterol Nebulize 3 ml INHALATION RT-TID PRN 05/21/19 05/22/19 Rx [Duoneb 0.5 mg-3 mg/3 ml Soln] ampul.neb Levofloxacin [Levaquin] 250 mg PO Q24H tab 05/21/19 05/22/19 Rx Pantoprazole [Protonix] 40 mg PO AC-BRKFST tablet. 05/21/19 05/22/19 Rx Sennosides [Senokot] 17.2 mg PO HS PRN 05/22/19 05/22/19 History traMADol HCL [Ultram] 50 mg PO Q6H PRN 05/22/19 05/22/19 History Allergies Allergy/AdvReac Type Severity Reaction Status Date / Time Penicillins Allergy Unknown Verified 05/22/19 08:11 morphine AdvReac Hallucinati Verified 05/22/19 08:11 ons Physical Exam Vitals: Vital Signs Temp Pulse Pulse Resp BP BP Pulse Ox 05/22/19 15:00 98 F 54 L 14 125/77 99 05/22/19 08:00 54 L 14 05/22/19 07:00 97.9 F 54 L 14 124/51 98 05/22/19 04:00 18 05/22/19 03:59 98.1 F 58 L 19 145/61 96 05/22/19 02:44 98 F 66 18 155/65 94 L 05/22/19 01:56 69 05/22/19 01:51 61 05/22/19 01:40 64 16 192/71 05/22/19 01:15 58 L 18 181/70 99 05/22/19 00:35 76 18 192/105 96 05/21/19 23:37 97.6 F 66 18 207/77 97 Intake and Output 05/22/19 05/22/19 05/22/19 06:59 14:59 22:59 Intake Total 80 140 Balance 80 140 Intake: Intake, IV Titration 80 140 Amount Sodium Chloride 0.9% 1, 80 140 000 ml @ 20 mls/hr IV . Q24H [facility] Rx#:[id number] Other: Voiding Method Bedside Commode Bedside Commode # Bowel Movements 2 Weight 90.718 kg PHYSICAL EXAMINATION: Patient is lying in the bed comfortably, no acute distress, awake alert and oriented.. HEENT: Normocephalic. Neck is supple. Pupils reactive. Nostrils clear. Oral cavity is moist. Ears reveal no drainage. Neck reveals no JVD, carotid bruits, or thyromegaly. CHEST EXAMINATION: Trachea is central. Symmetrical expansion. Lung pascual clear to auscultation and percussion. CARDIAC: Normal S1, S2 with no gallops. No murmurs ABDOMEN: Soft. Bowel sounds normal. No organomegaly. No abdominal bruits. Extremities: reveal no edema. No clubbing or cyanosis Neurologically awake, alert, oriented x3 with well-coordinated movements. No focal deficits noted Skin: No rash or skin lesions. Psychiatric: Coperative. Nonsuicidal Musculoskeletal: No joint swelling or deformity. Normal range of motion. Right foot surgical boot present Results CBC & Chem 7: 05/22/19 00:34 05/22/19 00:34 Labs: Abnormal Lab Results - Last 24 Hours (Table) 05/22/19 05/22/19 05/22/19 Range/Units 00:12 00:34 00:34 RBC 3.66 L (3.80-5.40) m/uL Hct 33.7 L (34.0-46.0) % Sodium 132 L (137-145) mmol/L Chloride 95 L (98-107) mmol/L BUN 23 H (7-17) mg/dL Creatinine 1.27 H (0.52-1.04) mg/dL Glucose 286 H (74-99) mg/dL POC Glucose (mg/dL) (75-99) mg/dL AST 49 H (14-36) U/L Ur Leukocyte Esterase Moderate H (Negative) Urine WBC 12 H (0-5) /hpf Urine Bacteria Rare H (None) /hpf Hyaline Casts 7 H (0-2) /lpf Urine Mucus Rare H (None) /hpf 05/22/19 05/22/19 05/22/19 Range/Units 02:56 07:19 11:39 RBC (3.80-5.40) m/uL Hct (34.0-46.0) % Sodium (137-145) mmol/L Chloride (98-107) mmol/L BUN (7-17) mg/dL Creatinine (0.52-1.04) mg/dL Glucose (74-99) mg/dL POC Glucose (mg/dL) 286 H 182 H 60 L (75-99) mg/dL AST (14-36) U/L Ur Leukocyte Esterase (Negative) Urine WBC (0-5) /hpf Urine Bacteria (None) /hpf Hyaline Casts (0-2) /lpf Urine Mucus (None) /hpf 05/22/19 Range/Units 12:00 RBC (3.80-5.40) m/uL Hct (34.0-46.0) % Sodium (137-145) mmol/L Chloride (98-107) mmol/L BUN (7-17) mg/dL Creatinine (0.52-1.04) mg/dL Glucose (74-99) mg/dL POC Glucose (mg/dL) 73 L (75-99) mg/dL AST (14-36) U/L Ur Leukocyte Esterase (Negative) Urine WBC (0-5) /hpf Urine Bacteria (None) /hpf Hyaline Casts (0-2) /lpf Urine Mucus (None) /hpf Thrombosis Risk Factor Assmnt - DVT/VTE Prophylaxis DVT/VTE Prophylaxis: Pharmacologic Prophylaxis ordered - Choose All That Apply Each Risk Factor Represents 3 Points: Age 75 years or older Each Risk Factor Represents 5 Points: Hip, pelvis, or leg fracture (< 1 month) Thrombosis Risk Factor Assessment Total Risk Factor Score: 8 Thrombosis Risk Factor Assessment Level: High Risk Assessment and Plan Assessment: Intractable headache. Improved now. Status post fall and right DBS fibular and multiple foot fractures. Currently on surgical blood. Patient was discharged to rehab on 05/21/2019 Recent Syncope possibly due to hypoglycemia. Hyperglycemia with uncontrolled diabetes. Diabetes type 2 Asthma stable Hypertension Rheumatoid arthritis Hypothyroidism Recent E. coli urinary tract infection. Currently being continued on Levaquin. DVT prophylaxis Plan: Patient will be continued on symptomatic management. Headache improved. Otherwise continue the insulin regimen and follow-up blood sugars closely. Continue with insulin sliding scale. Continue with Levaquin for E. coli urinary tract infection as per recent admission. Continue the home medications and follow closely. PT OT will be consulted possible transfer to a different long-term. Further recommendations based on the clinical course. Prognosis is guarded. Time with Patient: Greater than 30
[2019-05-23 11:46] LABS: Glucose,Whole Blood 153 mg/dL (75-99)
[2019-05-23] MEDS: IPRATROPIUM-ALBUTEROL 3 ML NEB INHALATION PRN ×2 (15:22→21:00)
[2019-05-23 17:04] LABS: Glucose,Whole Blood 108 mg/dL (75-99)
[2019-05-23 20:12] LABS: Glucose,Whole Blood 128 mg/dL (75-99)
[2019-05-24] MEDS: SODIUM CHLORIDE 0.9% 1,000 ML IV SCH ×2 (00:46→23:08)
--- NOTE | 2019-05-24 02:49 | P.PN ---
Subjective Progress Note Date: 05/23/19 Patient is a 84-year-old female with known history of hypertension, diabetes type 2, rheumatoid arthritis and recent history of fall at home and found to have distal tibia fibular fracture and multiple foot fractures. Patient was seen by orthopedic's and patient had closed treatment and boot which was re commended by orthopedic surgery. Patient was discharged to rehab yesterday. Patient says that she developed generalized headache and since 6 PM yesterday and was sent back to the hospital. She describes as an aching, moderately severe. It effects the whole head, and she has not noted worsening or relieving factors. She states it is not the worst headache that she has ever had. She denies neurologic symptoms associated with this. In addition, she states that her blood sugar has been up and down while at the retirement. Patient states that the food there is different and her insulin r egimen is different than it had been at home so her blood sugar has varied between 50 and up over 300. An addition patient had some elevated blood pressures at the retirement. Denied any fever or chills. No nausea vomiting or abdominal pain. No chest pain or shortness of breath. Patient is being treated for a urinary tract infection. CT brain and cervical spine showed cerebral atrophy and chronic small vessel ischemia. No acute intracranial abnormality noted. Chronic left maxillary sinusitis. Spondylitic change in the cervical spine. No fracture. Chest x-ray showed worsening interstitial density unchanged and more likely related to pulmonary fibrosis. Normal heart. 05/23/2019 Patient denied any complaints of chest pain or shortness breath. Right leg pain is better. Able to ambulate as tolerated. Surgical boot is in place. No fever no chills. PTOT and patient wishes to be discharged home. Current medications reviewed. Objective - Vital Signs Vital signs: Vital Signs Temp 98.3 F 05/23/19 18:50 Pulse 53 L 05/23/19 18:50 Resp 16 05/23/19 18:50 BP 125/46 05/23/19 18:50 Pulse Ox 95 05/23/19 18:50 Intake & Output 05/23/19 05/23/19 05/24/19 06:59 18:59 06:59 Intake Total 400 296 Balance 400 296 Intake: Intake, IV Titration 160 Amount Sodium Chloride 0.9% 1, 160 000 ml @ 20 mls/hr IV . Q24H [facility] Rx#:[id number] Oral 240 296 Other: Voiding Method Bedside Commode Bedside Commode # Voids 2 3 - Exam PHYSICAL EXAMINATION: Patient is lying in the bed comfortably, no acute distress, awake alert and oriented.. HEENT: Normocephalic. Neck is supple. Pupils reactive. Nostrils clear. Oral cavity is moist. Ears reveal no drainage. Neck reveals no JVD, carotid bruits, or thyromegaly. CHEST EXAMINATION: Trachea is central. Symmetrical expansion. Lung pascual clear to auscultation and percussion. CARDIAC: Normal S1, S2 with no gallops. No murmurs ABDOMEN: Soft. Bowel sounds normal. No organomegaly. No abdominal bruits. Extremities: reveal no edema. No clubbing or cyanosis Neurologically awake, alert, oriented x3 with well-coordinated movements. No focal deficits noted Skin: No rash or skin lesions. Psychiatric: Coperative. Nonsuicidal Musculoskeletal: No joint swelling or deformity. Normal range of motion. Right foot surgical boot present - Labs CBC & Chem 7: 05/22/19 00:34 05/22/19 00:34 Labs: Abnormal Lab Results - Last 24 Hours (Table) 05/22/19 05/23/19 05/23/19 Range/Units 20:53 07:07 11:44 POC Glucose (mg/dL) 193 H 188 H 153 H (75-99) mg/dL 05/23/19 Range/Units 17:03 POC Glucose (mg/dL) 108 H (75-99) mg/dL Assessment and Plan Assessment: Intractable headache. Improved now. Status post fall and right DBS fibular and multiple foot fractures. Currently on surgical blood. Patient was discharged to rehab on 05/21/2019 Recent Syncope possibly due to hypoglycemia. Hyperglycemia with uncontrolled diabetes. Diabetes type 2 Asthma stable Hypertension Rheumatoid arthritis Hypothyroidism Recent E. coli urinary tract infection. Currently being continued on Levaquin. DVT prophylaxis Plan: Patient will be continued on symptomatic management. Headache improved. Otherwise continue the insulin regimen and follow-up blood sugars closely. Continue with insulin sliding scale. Continue with Levaquin for E. coli urinary tract infection as per recent admission. Continue the home medications and follow closely. PT OT will be consulted possible transfer to a different retirement. Further recommendations based on the clinical course. Prognosis is guarded. Time with Patient: Greater than 30
[2019-05-24] MEDS: LEVOTHYROXINE 125 MCG TAB PO SCH (05:35)
[2019-05-24 07:40] LABS: Glucose,Whole Blood 78 mg/dL (75-99)
[2019-05-24] MEDS: INSULN ASP PRT/INSULIN ASPART 100 UNIT/ML 10 ML VIAL SQ SCH ×2 (08:16→17:49)
[2019-05-24] MEDS: IPRATROPIUM-ALBUTEROL 3 ML NEB INHALATION PRN ×3 (08:32→20:41)
[2019-05-24] MEDS: ASPIRIN 81 MG PO SCH (08:38)
[2019-05-24] MEDS: IBUPROFEN 800 MG TAB PO PRN ×2 (08:38→17:02)
[2019-05-24] MEDS: ISOSORBIDE MONONITRATE ER 30 MG TAB.ER.24H PO SCH (08:38)
[2019-05-24] MEDS: FUROSEMIDE 20 MG TAB PO SCH (08:39)
[2019-05-24] MEDS: POTASSIUM CHLORIDE ER 20 MEQ TAB.ER PO SCH (08:39)
[2019-05-24] MEDS: CHOLECALCIFEROL 1,000 UNIT TAB PO SCH ×3 (08:39→20:33)
[2019-05-24] MEDS: aMILoride-HCTZ 5-50 mg 1 EACH TAB PO SCH (08:39)
[2019-05-24] MEDS: LEVOFLOXACIN 250 MG TAB PO SCH (08:39)
[2019-05-24] MEDS: PANTOPRAZOLE 40 MG TABLET PO SCH (08:39)
[2019-05-24] MEDS: HEPARIN SODIUM,PORCINE 5,000 UNIT/ML 1 ML VIAL SQ SCH ×3 (08:39→23:11)
[2019-05-24] MEDS: ATENOLOL 50 MG TAB PO SCH (08:39)
[2019-05-24 11:53] LABS: Glucose,Whole Blood 149 mg/dL (75-99)
[2019-05-24] MEDS: traMADol 50 MG TAB PO PRN ×2 (12:09→20:32)
[2019-05-24 17:31] LABS: Glucose,Whole Blood 213 mg/dL (75-99)
[2019-05-24 20:20] LABS: Glucose,Whole Blood 207 mg/dL (75-99)
[2019-05-25] MEDS: LEVOTHYROXINE 125 MCG TAB PO SCH (05:23)
[2019-05-25 06:52] LABS: Glucose,Whole Blood 82 mg/dL (75-99)
[2019-05-25 07:15] LABS: Glucose,Whole Blood 84 mg/dL (75-99)
[2019-05-25 07:32] VITALS: RESP 16
[2019-05-25] MEDS: ATENOLOL 50 MG TAB PO SCH (08:24)
[2019-05-25] MEDS: LEVOFLOXACIN 250 MG TAB PO SCH (08:24)
[2019-05-25] MEDS: aMILoride-HCTZ 5-50 mg 1 EACH TAB PO SCH (08:24)
[2019-05-25] MEDS: INSULN ASP PRT/INSULIN ASPART 100 UNIT/ML 10 ML VIAL SQ SCH (08:24)
[2019-05-25] MEDS: FUROSEMIDE 20 MG TAB PO SCH (08:24)
[2019-05-25] MEDS: ISOSORBIDE MONONITRATE ER 30 MG TAB.ER.24H PO SCH (08:24)
[2019-05-25] MEDS: ASPIRIN 81 MG PO SCH (08:25)
[2019-05-25] MEDS: CHOLECALCIFEROL 1,000 UNIT TAB PO SCH (08:25)
[2019-05-25] MEDS: IBUPROFEN 800 MG TAB PO PRN ×2 (08:25→16:33)
[2019-05-25] MEDS: POTASSIUM CHLORIDE ER 20 MEQ TAB.ER PO SCH (08:25)
[2019-05-25] MEDS: PANTOPRAZOLE 40 MG TABLET PO SCH (08:25)
[2019-05-25] MEDS: HEPARIN SODIUM,PORCINE 5,000 UNIT/ML 1 ML VIAL SQ SCH (08:25)
[2019-05-25] MEDS: IPRATROPIUM-ALBUTEROL 3 ML NEB INHALATION PRN (08:28)
[2019-05-25 12:13] LABS: Glucose,Whole Blood 162 mg/dL (75-99)
--- NOTE | 2019-05-25 12:14 | CDI ---
Documentation Clarification Form Date: 05/25/2019 11:52:53 AM From: Ara Mays RN, CCDS Admit Date: 05/24/2019 3:25:00 PM Patient Name: Jacqueline Aleman Visit Number: [id number] ATTENTION: The Clinical Documentation Specialists (CDI) and [facility] Coding Staff appreciate your assistance in clarifying documentation. Please respond to the clarification below the line at the bottom and electronically sign. The CDI & [facility] Coding staff will review the response and follow-up if needed. Please note: Queries are made part of the Legal Health Record. If you have any questions, please contact the author of this message via ITS. Dr. Hopkins Asthma is documented in the H&P and progress notes. History/risk factors: Asthma, DM, HTN Clinical Indicators: Radiology:"Coarse interstitial density unchanged and more likely related to pulmonary fibrosis. Normal heart." Vital Signs: Temp 97.6, hr 66, RR 18, B/P 207/77, spo2 97% ra Other Clinical Indicators: Medication: Duoneb TID and PRN SOB In your professional opinion, can you please further specify the following, if known? With Acute Exacerbation Status asthmaticus Acute lower respiratory infection COPD (specify with or without exacerbation) Chronic obstructive bronchitis Other, please specify ___ Unable to determine Severity Mild intermittent Mild persistent Moderate persistent Severe persistent Other, please specify ____ Unable to determine Form or Type Cough variant Childhood Exercise induced bronchospasm Extrinsic allergic Idiosyncratic Intrinsic nonallergic Late-onset Mixed Other, please specify____ Unable to determine (Last Revision: December 2017) Pulmonary fibrosis. No history of asthma. MTDD
[2019-05-25 14:55] VITALS: BP 129/62; PULSE 52; TEMP 98.7
--- NOTE | 2019-05-25 15:24 | P.PN ---
Subjective Progress Note Date: 05/24/19 Principal diagnosis: Intractable headache and weakness Acute urinary tract infection Patient is a 84-year-old female with known history of hypertension, diabetes type 2, rheumatoid arthritis and recent history of fall at home and found to have distal tibia fibular fracture and multiple foot fractures. Patient was seen by orthopedic's and patient had closed treatment and boot which was recommended by orthopedic surgery. Patient was discharged to rehab yesterday. Patient says that she developed generalized headache and since 6 PM yesterday and was sent back to the hospital. She describes as an aching, moderately severe. It effects the whole head, and she has not noted worsening or relieving factors. She states it is not the worst headache that she has ever had. She denies neurologic symptoms associated with this. In addition, she states that her blood sugar has been up and down while at the shelter. Patient states that the food there is different and her insulin regimen is different than it had been at home so her blood sugar has varied between 50 and up over 300. An addition patient had some elevated blood pressures at the shelter. Denied any fever or chills. No nausea vomiting or abdominal pain. No chest pain or shortness of breath. Patient is being treated for a urinary tract infection. CT brain and cervical spine showed cerebral atrophy and chronic small vessel ischemia. No acute intracranial abnormality noted. Chronic left maxillary sinusitis. Spondylitic change in the cervical spine. No fracture. Chest x-ray showed worsening interstitial density unchanged and more likely related to pulmonary fibrosis. Normal heart. 05/23/2019 Patient denied any complaints of chest pain or shortness breath. Right leg pain is better. Able to ambulate as tolerated. Surgical boot is in place. No fever no chills. PTOT and patient wishes to be discharged home. Current medications reviewed. Objective - Vital Signs Vital signs: Vital Signs Temp 97.6 F 05/24/19 07:00 Pulse 62 05/24/19 13:50 Resp 16 05/24/19 07:00 BP 138/89 05/24/19 07:00 Pulse Ox 98 05/24/19 07:00 Intake & Output 05/23/19 05/24/19 05/24/19 18:59 06:59 18:59 Intake Total 608 988 8132 Balance 721 965 3907 Intake: Intake, IV Titration 160 Amount Sodium Chloride 0.9% 1, 160 000 ml @ 20 mls/hr IV . Q24H [facility] Rx#:[id number] Oral 900 [id number] 3896 Other: Voiding Method Bedside Commode Bedside Commode Bedside Commode # Voids 3 1 1 - Exam PHYSICAL EXAMINATION: Patient is lying in the bed comfortably, no acute distress, awake alert and oriented.. HEENT: Normocephalic. Neck is supple. Pupils reactive. Nostrils clear. Oral cavity is moist. Ears reveal no drainage. Neck reveals no JVD, carotid bruits, or thyromegaly. CHEST EXAMINATION: Trachea is central. Symmetrical expansion. Lung pascual clear to auscultation and percussion. CARDIAC: Normal S1, S2 with no gallops. No murmurs ABDOMEN: Soft. Bowel sounds normal. No organomegaly. No abdominal bruits. Extremities: reveal no edema. No clubbing or cyanosis Neurologically awake, alert, oriented x3 with well-coordinated movements. No focal deficits noted Skin: No rash or skin lesions. Psychiatric: Coperative. Nonsuicidal Musculoskeletal: No joint swelling or deformity. Normal range of motion. Right foot surgical boot present - Labs CBC & Chem 7: 05/22/19 00:34 05/22/19 00:34 Labs: Abnormal Lab Results - Last 24 Hours (Table) 05/23/19 05/24/19 05/24/19 Range/Units 20:11 11:51 17:29 POC Glucose (mg/dL) 128 H 149 H 213 H (75-99) mg/dL Assessment and Plan Assessment: Intractable headache. Improved now. Status post fall and right DBS fibular and multiple foot fractures. Currently on surgical blood. Patient was discharged to rehab on 05/21/2019 Recent Syncope possibly due to hypoglycemia. Hyperglycemia with uncontrolled diabetes. Diabetes type 2 Asthma stable Hypertension Rheumatoid arthritis Hypothyroidism Recent E. coli urinary tract infection. Currently being continued on Levaquin. DVT prophylaxis Plan: Patient will be continued on symptomatic management. Headache improved. Otherwise continue the insulin regimen and follow-up blood sugars closely. Cont inue with insulin sliding scale. Continue with Levaquin for E. coli urinary tract infection as per recent admission. Continue the home medications and follow closely. PT OT will be consulted possible transfer to a different shelter. Further recommendations based on the clinical course. Prognosis is guarded. Time with Patient: Greater than 30
== END 2019-05-25 17:20 | disposition home health service (06) | DRG 103 ==
LOC: EC 23:29 → 4SSUR 05-22 02:40 → OBSVTOIN 05-24 15:25
PROVIDERS: ADMIT Hospitalist; ATTEND Hospitalist
DX: R51 Headache (principal); N39.0 Urinary tract infection, site not specified; E11.649 Type 2 diabetes mellitus with hypoglycemia without coma; E11.65 Type 2 diabetes mellitus with hyperglycemia; J84.10 Pulmonary fibrosis, unspecified; M06.9 Rheumatoid arthritis, unspecified; B96.20 Unspecified Escherichia coli [E. coli] as the cause of diseases classified elsewhere; E03.9 Hypothyroidism, unspecified; J32.0 Chronic maxillary sinusitis; I10 Essential (primary) hypertension; S82.301D Unspecified fracture of lower end of right tibia, subsequent encounter for closed fracture with routine healing; S82.831D Other fracture of upper and lower end of right fibula, subsequent encounter for closed fracture with routine healing; W06.XXXD Fall from bed, subsequent encounter; Z79.82 Long term (current) use of aspirin; Z79.4 Long term (current) use of insulin; Z79.890 Hormone replacement therapy; Z79.899 Other long term (current) drug therapy; Z90.49 Acquired absence of other specified parts of digestive tract; Z90.710 Acquired absence of both cervix and uterus; Z98.890 Other specified postprocedural states; Z91.81 History of falling; Z88.5 Allergy status to narcotic agent; Z88.0 Allergy status to penicillin; Y92.009 Unspecified place in unspecified non-institutional (private) residence as the place of occurrence of the external cause
CPT/HCPCS: 36415; 70450; 71045; 72125; 80053; 81001; 84484; 85025; 93005; 94640; 99285

== ENCOUNTER 2019-07-26 17:01 | Observation (INO) | payer MEDICARE, BC ==
[2019-07-26] MEDS ORDERED: SODIUM CHLORIDE 0.9% 1,000 ML IV STA (17:13)
--- NOTE | 2019-07-26 17:19 | ED ---
Weakness HPI - General Chief complaint: Weakness Stated complaint: Generalized weakness Time Seen by Provider: 07/26/19 17:01 Source: patient, EMS, RN notes reviewed, old records reviewed Mode of arrival: EMS Limitations: no limitations - History of Present Illness Initial comments: This is a 84-year-old female with a history of recent right ankle fractures who presents by EMS with complaints of generalized weakness over the past 2 or 3 days she had progressively worse weakness for the bilateral lower extremity edema he also had a headache no cough no shortness breath no palpitations no fevers chills or sweats. She does have a history of asthma hypertension diabetes. She was initially noted have a 204/76 blood pressure a glucose of 224. No other modifying factors at this time MD Complaint: generalized weakness - Related Data Home Medications Medication Instructions Recorded Confirmed Aspirin 81 mg PO DAILY 10/26/17 07/26/19 Atenolol 100 mg PO DAILY 10/26/17 07/26/19 Cholecalciferol [Vitamin D3 (25 1,000 unit PO TID 10/26/17 07/26/19 Mcg = 1000 Iu)] Furosemide [Lasix] 20 mg PO DAILY 10/26/17 07/26/19 Isosorbide Mononitrate [Isosorbide 30 mg PO DAILY 10/26/17 07/26/19 Mononitrate ER] Levothyroxine Sodium [Synthroid] 125 mcg PO DAILY 10/26/17 07/26/19 Potassium Chloride [Klor-Con 20] 20 meq PO DAILY 10/26/17 07/26/19 aMILoride-HCTZ 5-50 mg [Moduretic 1 tab PO DAILY 10/26/17 07/26/19 5-50] Vit C/E/Zn/Coppr/Lutein/Zeaxan 1 cap PO BID 05/17/19 05/22/19 [Preservision Areds 2 Softgel] Sennosides [Senokot] 17.2 mg PO HS PRN 05/22/19 05/22/19 traMADol HCL [Ultram] 50 mg PO Q6H PRN 05/22/19 05/22/19 Previous Rx's Medication Instructions Recorded Ibuprofen 800 mg PO TID PRN #90 tablet 05/20/19 Insuln Asp Prt/Insulin Aspart 40 unit SQ AC-SUPPER vial 05/21/19 [NovoLOG MIX 70-30 VIAL] Insuln Asp Prt/Insulin Aspart 50 unit SQ AC-BRKFST vial 05/21/19 [NovoLOG MIX 70-30 VIAL] Ipratropium-Albuterol Nebulize 3 ml INHALATION RT-TID PRN 05/21/19 [Duoneb 0.5 mg-3 mg/3 ml Soln] ampul.neb Pantoprazole [Protonix] 40 mg PO AC-BRKFST tablet. 05/21/19 Allergies Allergy/AdvReac Type Severity Reaction Status Date / Time Penicillins Allergy Unknown Verified 05/22/19 08:11 morphine AdvReac Hallucinati Verified 05/22/19 08:11 ons Review of Systems ROS Statement: Those systems with pertinent positive or pertinent negative responses have been documented in the HPI. ROS Other: All systems not noted in ROS Statement are negative. Past Medical History Past Medical History: Asthma, Diabetes Mellitus, Hypertension, Rheumatoid Arthritis (RA), Thyroid Disorder Additional Past Medical History / Comment(s): Fall out of bed and fx right leg History of Any Multi-Drug Resistant Organisms: None Reported Past Surgical History: Bladder Surgery, Cholecystectomy, Hysterectomy Additional Past Surgical History / Comment(s): thyroid removed Past Psychological History: No Psychological Hx Reported Smoking Status: Never smoker Past Alcohol Use History: None Reported Past Drug Use History: None Reported - Past Family History Father Family Medical History: Cancer General Exam - General Exam Comments Initial Comments: This is a well-developed well-nourished awake alert oriented 3 female Limitations: no limitations General appearance: alert, in no apparent distress Head exam: Present: atraumatic, normocephalic, normal inspection Eye exam: Present: normal appearance, PERRL, EOMI. Absent: scleral icterus, conjunctival injection, periorbital swelling ENT exam: Present: mucous membranes dry Neck exam: Present: normal inspection, full ROM, other (No stridor JVD or brui ts). Absent: tenderness, meningismus, lymphadenopathy Respiratory exam: Present: normal lung sounds bilaterally. Absent: respiratory distress, wheezes, rales, rhonchi, stridor Cardiovascular Exam: Present: regular rate, normal rhythm, normal heart sounds. Absent: systolic murmur, diastolic murmur, rubs, gallop, clicks GI/Abdominal exam: Present: soft, normal bowel sounds. Absent: distended, tenderness, guarding, rebound, rigid, bruit, pulsatile mass Extremities exam: Present: full ROM, tenderness (Is palpation especially the right calf no definitive Homans sign), normal capillary refill, pedal edema. Absent: joint swelling, calf tenderness Back exam: Present: normal inspection Neurological exam: Present: alert, oriented X3, CN II-XII intact Psychiatric exam: Present: normal affect, normal mood Skin exam: Present: warm, dry, intact, normal color. Absent: rash Course Vital Signs 07/26/19 07/26/19 17:05 19:58 Temperature 98.7 F Pulse Rate 54 L 55 L Respiratory 18 18 Rate Blood Pressure 133/76 191/71 O2 Sat by Pulse 97 97 Oximetry EKG Findings - EKG Results: EKG: interpreted by ALAN, sinus rhythm (Sinus bradycardia rate of 52. Interval 180 QRS duration 82 QT/QTC 692/643, nonspecific T-wave configuration prolonged QT noted) Medical Decision Making - Medical Decision Making I did discuss findings with patient family members. The patient is demonstrating evidence of dehydration as well as elevated blood pressure and urinary tract infection she will be admitted for treatment of the same. Additionally family is concerned as the patient has been having some memory issues recently. Case is discussed with Dr. Hopkins. - Lab Data Result diagrams: 07/26/19 17:10 07/26/19 17:10 Lab Results 07/26/19 07/26/19 07/26/19 Range/Units 17:10 17:10 17:10 WBC 7.6 (3.8-10.6) k/uL RBC 3.78 L (3.80-5.40) m/uL Hgb 12.0 (11.4-16.0) gm/dL Hct 35.9 (34.0-46.0) % MCV 94.9 (80.0-100.0) fL MCH 31.7 (25.0-35.0) pg MCHC 33.4 (31.0-37.0) g/dL RDW 12.4 (11.5-15.5) % Plt Count 300 (150-450) k/uL Neutrophils % 64 % Lymphocytes % 23 % Monocytes % 8 % Eosinophils % 3 % Basophils % 1 % Neutrophils # 4.8 (1.3-7.7) k/uL Lymphocytes # 1.8 (1.0-4.8) k/uL Monocytes # 0.6 (0-1.0) k/uL Eosinophils # 0.2 (0-0.7) k/uL Basophils # 0.1 (0-0.2) k/uL PT 10.6 (9.0-12.0) sec INR 1.0 (<1.2) APTT 22.0 (22.0-30.0) sec D-Dimer 4.85 H (<0.60) mg/L FEU Sodium 137 (137-145) mmol/L Potassium 3.6 (3.5-5.1) mmol/L Chloride 98 (98-107) mmol/L Carbon Dioxide 32 H (22-30) mmol/L Anion Gap 7 mmol/L BUN 19 H (7-17) mg/dL Creatinine 1.06 H (0.52-1.04) mg/dL Est GFR (CKD-EPI)AfAm 56 (>60 ml/min/1.73 sqM) Est GFR (CKD-EPI)NonAf 48 (>60 ml/min/1.73 sqM) Glucose 167 H (74-99) mg/dL Plasma Lactic Acid Jayme (0.7-2.0) mmol/L Calcium 9.2 (8.4-10.2) mg/dL Magnesium 1.6 (1.6-2.3) mg/dL Total Bilirubin 0.3 (0.2-1.3) mg/dL AST 27 (14-36) U/L ALT 23 (9-52) U/L Alkaline Phosphatase 127 H (38-126) U/L Creatine Kinase 67 (30-135) U/L Troponin I (0.000-0.034) ng/mL NT-Pro-B Natriuret Pep pg/mL Total Protein 6.8 (6.3-8.2) g/dL Albumin 3.6 (3.5-5.0) g/dL TSH 3.720 (0.465-4.680) mIU/L Urine Color Urine Appearance (Clear) Urine pH (5.0-8.0) Ur Specific Filion (1.001-1.035) Urine Protein (Negative) Urine Glucose (UA) (Negative) Urine Ketones (Negative) Urine Blood (Negative) Urine Nitrite (Negative) Urine Bilirubin (Negative) Urine Urobilinogen (<2.0) mg/dL Ur Leukocyte Esterase (Negative) Urine RBC (0-5) /hpf Urine WBC (0-5) /hpf Ur Squamous Epith Cells (0-4) /hpf Urine Bacteria (None) /hpf Hyaline Casts (0-2) /lpf Urine Mucus (None) /hpf 07/26/19 07/26/19 07/26/19 Range/Units 17:10 17:10 17:10 WBC (3.8-10.6) k/uL RBC (3.80-5.40) m/uL Hgb (11.4-16.0) gm/dL Hct (34.0-46.0) % MCV (80.0-100.0) fL MCH (25.0-35.0) pg MCHC (31.0-37.0) g/dL RDW (11.5-15.5) % Plt Count (150-450) k/uL Neutrophils % % Lymphocytes % % Monocytes % % Eosinophils % % Basophils % % Neutrophils # (1.3-7.7) k/uL Lymphocytes # (1.0-4.8) k/uL Monocytes # (0-1.0) k/uL Eosinophils # (0-0.7) k/uL Basophils # (0-0.2) k/uL PT (9.0-12.0) sec INR (<1.2) APTT (22.0-30.0) sec D-Dimer (<0.60) mg/L FEU Sodium (137-145) mmol/L Potassium (3.5-5.1) mmol/L Chloride (98-107) mmol/L Carbon Dioxide (22-30) mmol/L Anion Gap mmol/L BUN (7-17) mg/dL Creatinine (0.52-1.04) mg/dL Est GFR (CKD-EPI)AfAm (>60 ml/min/1.73 sqM) Est GFR (CKD-EPI)NonAf (>60 ml/min/1.73 sqM) Glucose (74-99) mg/dL Plasma Lactic Acid Jayme 1.0 (0.7-2.0) mmol/L Calcium (8.4-10.2) mg/dL Magnesium (1.6-2.3) mg/dL Total Bilirubin (0.2-1.3) mg/dL AST (14-36) U/L ALT (9-52) U/L Alkaline Phosphatase (38-126) U/L Creatine Kinase (30-135) U/L Troponin I 0.019 (0.000-0.034) ng/mL NT-Pro-B Natriuret Pep 853 pg/mL Total Protein (6.3-8.2) g/dL Albumin (3.5-5.0) g/dL TSH (0.465-4.680) mIU/L Urine Color Urine Appearance (Clear) Urine pH (5.0-8.0) Ur Specific Filion (1.001-1.035) Urine Protein (Negative) Urine Glucose (UA) (Negative) Urine Ketones (Negative) Urine Blood (Negative) Urine Nitrite (Negative) Urine Bilirubin (Negative) Urine Urobilinogen (<2.0) mg/dL Ur Leukocyte Esterase (Negative) Urine RBC (0-5) /hpf Urine WBC (0-5) /hpf Ur Squamous Epith Cells (0-4) /hpf Urine Bacteria (None) /hpf Hyaline Casts (0-2) /lpf Urine Mucus (None) /hpf 07/26/ Range/Units 17:35 WBC (3.8-10.6) k/uL RBC (3.80-5.40) m/uL Hgb (11.4-16.0) gm/dL Hct (34.0-46.0) % MCV (80.0-100.0) fL MCH (25.0-35.0) pg MCHC (31.0-37.0) g/dL RDW (11.5-15.5) % Plt Count (150-450) k/uL Neutrophils % % Lymphocytes % % Monocytes % % Eosinophils % % Basophils % % Neutrophils # (1.3-7.7) k/uL Lymphocytes # (1.0-4.8) k/uL Monocytes # (0-1.0) k/uL Eosinophils # (0-0.7) k/uL Basophils # (0-0.2) k/uL PT (9.0-12.0) sec INR (<1.2) APTT (22.0-30.0) sec D-Dimer (<0.60) mg/L FEU Sodium (137-145) mmol/L Potassium (3.5-5.1) mmol/L Chloride (98-107) mmol/L Carbon Dioxide (22-30) mmol/L Anion Gap mmol/L BUN (7-17) mg/dL Creatinine (0.52-1.04) mg/dL Est GFR (CKD-EPI)AfAm (>60 ml/min/1.73 sqM) Est GFR (CKD-EPI)NonAf (>60 ml/min/1.73 sqM) Glucose (74-99) mg/dL Plasma Lactic Acid Jayme (0.7-2.0) mmol/L Calcium (8.4-10.2) mg/dL Magnesium (1.6-2.3) mg/dL Total Bilirubin (0.2-1.3) mg/dL AST (14-36) U/L ALT (9-52) U/L Alkaline Phosphatase (38-126) U/L Creatine Kinase (30-135) U/L Troponin I (0.000-0.034) ng/mL NT-Pro-B Natriuret Pep pg/mL Total Protein (6.3-8.2) g/dL Albumin (3.5-5.0) g/dL TSH (0.465-4.680) mIU/L Urine Color Light Yellow Urine Appearance Cloudy H (Clear) Urine pH 5.5 (5.0-8.0) Ur Specific Filion 1.009 (1.001-1.035) Urine Protein Negative (Negative) Urine Glucose (UA) Negative (Negative) Urine Ketones Negative (Negative) Urine Blood Negative (Negative) Urine Nitrite Negative (Negative) Urine Bilirubin Negative (Negative) Urine Urobilinogen <2.0 (<2.0) mg/dL Ur Leukocyte Esterase Large H (Negative) Urine RBC 6 H (0-5) /hpf Urine WBC 50 H (0-5) /hpf Ur Squamous Epith Cells 4 (0-4) /hpf Urine Bacteria Rare H (None) /hpf Hyaline Casts 10 H (0-2) /lpf Urine Mucus Rare H (None) /hpf - Radiology Data Radiology results: report reviewed (I did review the imaging and reports no acute findings.), image reviewed Disposition Clinical Impression: Urinary tract infection, Dehydration, Renal insufficiency syndrome, Elevated d- dimer Disposition: ADMITTED IP TO THIS HOSP Condition: Fair Referrals: Neymar Mcgill DO [Primary Care Provider] - 1-2 days
[2019-07-26 17:44] LABS: Basophils # (A) 0.1 k/uL (0-0.2); Basophils % (A) 1 %; Eosinophils # (A) 0.2 k/uL (0-0.7); Eosinophils % (A) 3 %; HCT 35.9 % (34.0-46.0); Lymphocytes # (A) 1.8 k/uL (1.0-4.8); Lymphocytes % (A) 23 %; MCH 31.7 pg (25.0-35.0); MCHC 33.4 g/dL (31.0-37.0); MCV 94.9 fL (80.0-100.0); Mean Platelet Volume 6.1; Monocytes # (A) 0.6 k/uL (0-1.0); Monocytes % (A) 8 %; Neutrophils # (A) 4.8 k/uL (1.3-7.7); Neutrophils % (A) 64 %; Platelet Count 300 k/uL (150-450); RBC 3.78 m/uL (3.80-5.40); RDW 12.4 % (11.5-15.5); WBC 7.6 k/uL (3.8-10.6)
[2019-07-26 17:45] LABS: Appearance,Urine Cloudy (Clear); Bacteria,Urine Rare /hpf; Bilirubin,Urine Negative (Negative); Blood,Urine Negative (Negative); Color,Urine Light Yellow; Glucose,Urine (UA) Negative (Negative); Hyaline Casts,Urine 10 /lpf (0-2); Ketones,Urine Negative (Negative); Leukocyte Esterase,Urine Large (Negative); Mucus,Urine Rare /hpf; Nitrite,Urine Negative (Negative); PH, Urine 5.5 (5.0-8.0); Protein,Urine Negative (Negative); RBC,Urine 6 /hpf (0-5); Specific Gravity,Urine 1.009 (1.001-1.035); Squamous Epithelial Cell,Urine 4 /hpf (0-4); Urobilinogen,Urine <2.0 mg/dL (<2.0); WBC,Urine 50 /hpf (0-5)
[2019-07-26 17:46] LABS: Albumin 3.6 g/dL (3.5-5.0); Calcium 9.2 mg/dL (8.4-10.2); Magnesium 1.6 mg/dL (1.6-2.3); Potassium 3.6 mmol/L (3.5-5.1); Total Bilirubin 0.3 mg/dL (0.2-1.3); Total Protein 6.8 g/dL (6.3-8.2)
[2019-07-26 17:57] LABS: Prothrombin Time 10.6 sec (9.0-12.0)
[2019-07-26 18:05] LABS: D-Dimer 4.85 mg/L FEU (<0.60)
--- NOTE | 2019-07-26 18:11 | US ---
EXAMINATION TYPE: US venous doppler duplex LE DATE OF EXAM: 07/26/2019 6:04 PM COMPARISON: NONE CLINICAL HISTORY: Lower extremity edema right calf pain. Edema bilateral lower legs SIDE PERFORMED: bilateral TECHNIQUE: The lower extremity deep venous system is examined utilizing real time linear array sonog ambrocio with graded compression, doppler sonography and color-flow sonography. VESSELS IMAGED: External Iliac Vein (EIV) Common Femoral Vein Deep Femoral Vein Greater Saphenous Vein * Femoral Vein Popliteal Vein Small Saphenous Vein * Proximal Calf Veins (* superficial vessels) Technical limitations due to patient's body habitus Right Leg: No evidence of DVT as visualized Left Leg: No evidence of DVT as visualized There is normal flow, compressibility, vascular waveforms. IMPRESSION: No evident deep venous arthrosis at or above the knees. There are technical limitations t o the exam. Follow-up as indicated in 24 to 48 hours.
--- NOTE | 2019-07-26 18:42 | XR ---
EXAMINATION TYPE: XR chest 2V DATE OF EXAM: 07/26/2019 COMPARISON: Prior chest x-ray 05/22/2019 HISTORY: Weakness, lower leg swelling, history hypertension TECHNIQUE: Frontal and lateral views of the chest are obtained. FINDINGS: There is no focal air space opacity, pleural effusion, or pneumothorax seen. The cardiac silhouette size is stable, enlarged. Aorta is dense. There are overlying cardiac leads. The osseous structures are intact. IMPRESSION: No acute cardiopulmonary process. Cardiomegaly.
--- NOTE | 2019-07-26 19:46 | CT ---
EXAMINATION TYPE: CT angio chest DATE OF EXAM: 07/26/2019 COMPARISON: Helical acquisition through the pelvis. HISTORY: Weakness, bilateral leg swelling, elevated d-dimer CT DLP: 550.9 mGycm Automated exposure control for dose reduction was used. CONTRAST: CTA scan of the thorax is performed with IV Contrast, patient injected with 80 mL of Isovue 370, pulm onary embolism protocol. MIP images are created and reviewed. 3D reconstructed images are created o n an independent workstation and reviewed. FINDINGS: There is a small hiatal hernia. LUNGS: The lungs are grossly clear, there is no concerning parenchymal mass or nodule identified. Bas ilar nodularity thought to be stable. There is no pleural effusion or pneumothorax seen. The tracheo bronchial tree is patent. AORTA: No additional significant abnormality is seen. MEDIASTINUM: There is satisfactory enhancement of the pulmonary artery and its branches, there is no CT evidence for pulmonary embolism. There are no greater than 1 cm hilar or mediastinal lymph nodes. No pericardial effusion is seen. There are coronary calcifications. Prominence of pulmonary artery could be indicative of pulmonary artery hypertension. OTHER: No additional significant abnormality is seen. IMPRESSION: NO EVIDENT PULMONARY EMBOLISM, CORRELATE FOR PULMONARY HYPERTENSION, THERE IS CORONARY ARTERY DISEASE . MINIMAL BASILAR NODULARITY THOUGHT TO BE BENIGN
[2019-07-26] MEDS ORDERED: NALOXONE 0.4 MG/ML 1 ML VIAL IV PRN (20:29)
[2019-07-26] MEDS ORDERED: ACETAMINOPHEN TAB 325 MG TAB PO PRN (20:29)
[2019-07-26] MEDS ORDERED: cefTRIAXone IN SWFI 1,000 MG/10 ML SYRINGE IVP STA (20:29)
[2019-07-26] MEDS ORDERED: IPRATROPIUM-ALBUTEROL 3 ML NEB INHALATION PRN (20:36)
[2019-07-26] MEDS ORDERED: traMADol 50 MG TAB PO PRN (20:36)
[2019-07-26] MEDS ORDERED: SODIUM CHLORIDE 0.9% 500 ML 500 ML IV ONE (20:44)
[2019-07-26] MEDS: SODIUM CHLORIDE 0.9% 1,000 ML IV SCH (20:49)
[2019-07-26 21:53] VITALS: BMI 33.6
[2019-07-26] MEDS: CHOLECALCIFEROL 1,000 UNIT TAB PO SCH (22:11)
[2019-07-26] MEDS: IBUPROFEN 800 MG TAB PO PRN (22:11)
[2019-07-26] MEDS ORDERED: hydrALAZINE HCL 20 MG/ML 1 ML VIAL IVP STA (22:28)
[2019-07-27] MEDS ORDERED: LEVOTHYROXINE 125 MCG TAB PO SCH (06:30)
[2019-07-27 07:03] LABS: Glucose,Whole Blood 143 mg/dL (75-99)
[2019-07-27] MEDS ORDERED: PANTOPRAZOLE 40 MG TABLET PO SCH (07:30)
[2019-07-27] MEDS ORDERED: INSULN ASP PRT/INSULIN ASPART 100 UNIT/ML 10 ML VIAL SQ SCH ×2 (07:30→17:30)
[2019-07-27] MEDS: CHOLECALCIFEROL 1,000 UNIT TAB PO SCH ×2 (07:51→16:03)
[2019-07-27] MEDS: SODIUM CHLORIDE 0.9% 1,000 ML IV SCH (07:54)
[2019-07-27] MEDS: IBUPROFEN 800 MG TAB PO PRN (08:03)
[2019-07-27] MEDS ORDERED: ATENOLOL 50 MG TAB PO SCH (09:00)
[2019-07-27] MEDS ORDERED: ASPIRIN 81 MG PO SCH (09:00)
[2019-07-27] MEDS ORDERED: aMILoride-HCTZ 5-50 mg 1 EACH TAB PO SCH (09:00)
[2019-07-27] MEDS ORDERED: FUROSEMIDE 20 MG TAB PO SCH (09:00)
[2019-07-27] MEDS ORDERED: ISOSORBIDE MONONITRATE ER 30 MG TAB.ER.24H PO SCH (09:00)
[2019-07-27] MEDS ORDERED: POTASSIUM CHLORIDE ER 20 MEQ TAB.ER PO SCH (09:00)
[2019-07-27 11:33] LABS: Glucose,Whole Blood 83 mg/dL (75-99)
[2019-07-27 12:28] VITALS: BP 146/64; PULSE 50; RESP 17; TEMP 97.3
[2019-07-27] MEDS ORDERED: DOXYCYCLINE 100 MG CAP PO STA (12:39)
[2019-07-27] MEDS ORDERED: FUROSEMIDE 10 MG/ML 2 ML VIAL IV STA (12:39)
--- NOTE | 2019-07-27 13:04 | P.HPIM ---
History of Present Illness 84-year-old pleasant female came in with compensable bilateral lower extremity edema patient does not have any orthopnea proximal nocturnal dyspnea patient doesn't have any evidence of CHF therapy edema is better patient was given Lasix patient will be given on the dose of Lasix and compression socks. Patient has borderline kidney function because of which was diuretic is not. And patient is also on amiloride and hydrochlorothiazide combination pill since she is on Lasix this will not be beneficial only lead to renal dysfunction because of that reason I'll discontinue the combination pill patient will be discharged on as ne eded Lasix at home along with compression socks. Patient denied any UTI symptoms including dysuria suprapubic pain. This is of that reason for her hospitalization and was given Rocephin. Patient appears to have some antibacterial the urine is definitely abnormal but doesn't have any symptoms doesn't have any fever doesn't have leukocytosis and the no UTI-like symptoms patient is not confused patient will not require antibiotics for a symptomatically bacteriuria. Patient also has a small ulcer with surrounding redness with mild cellulitis for which patient may require doxycycline which will be prescribed for 5 days. Patient is otherwise clinically doing well declining to go to subacute rehabilitation patient already has physical therapy at home lives by herself with frequent visits from daughters. Review of Systems REVIEW OF SYSTEMS: CONSTITUTIONAL: No fever, no malaise, no fatigue. HEENT: No recent visual problems or hearing problems. Denied any sore throat. CARDIOVASCULAR: No chest pain, orthopnea, PND, no palpitations, no syncope. PULMONARY: No shortness of breath, no cough, no hemoptysis. GASTROINTESTINAL: No diarrhea, no nausea, no vomiting, no abdominal pain. NEUROLOGICAL: No headaches, no weakness, no numbness. HEMATOLOGICAL: Denies any bleeding or petechiae. GENITOURINARY: Denies any burning micturition, frequency, or urgency. MUSCULOSKELETAL/RHEUMATOLOGICAL: Denies any joint pain, swelling, or any muscle pain. ENDOCRINE: Denies any polyuria or polydipsia. The rest of the 14-point review of systems is negative. Past Medical History Past Medical History: Asthma, Diabetes Mellitus, Hypertension, Rheumatoid Arthritis (RA), Thyroid Disorder Additional Past Medical History / Comment(s): Fall out of bed and fx right leg History of Any Multi-Drug Resistant Organisms: None Reported Past Surgical History: Bladder Surgery, Cholecystectomy, Hysterectomy Additional Past Surgical History / Comment(s): thyroid removed, cyst removed from breast Past Anesthesia/Blood Transfusion Reactions: Postoperative Nausea & Vomiting (PONV) Past Psychological History: No Psychological Hx Reported Smoking Status: Never smoker Past Alcohol Use History: None Reported Past Drug Use History: None Reported - Past Family History Father Family Medical History: Cancer Medications and Allergies Home Medications Medication Instructions Recorded Confirmed Type Aspirin 81 mg PO DAILY 10/26/17 07/27/19 History Atenolol 100 mg PO DAILY 10/26/17 07/27/19 History Cholecalciferol [Vitamin D3 (25 1,000 unit PO TID 10/26/17 07/27/19 History Mcg = 1000 Iu)] Furosemide [Lasix] 20 mg PO DAILY 10/26/17 07/27/19 History Isosorbide Mononitrate [Isosorbide 30 mg PO DAILY 10/26/17 07/27/19 History Mononitrate ER] Levothyroxine Sodium [Synthroid] 125 mcg PO DAILY 10/26/17 07/27/19 History Potassium Chloride [Klor-Con 20] 20 meq PO DAILY 10/26/17 07/27/19 History Vit C/E/Zn/Coppr/Lutein/Zeaxan 1 cap PO BID 05/17/19 07/27/19 History [Preservision Areds 2 Softgel] Ipratropium-Albuterol Nebulize 3 ml INHALATION RT-TID PRN 05/21/19 07/27/19 Rx [Duoneb 0.5 mg-3 mg/3 ml Soln] ampul.neb traMADol HCL [Ultram] 50 mg PO Q6H PRN 05/22/19 07/27/19 History Acetaminophen Tab [Tylenol] 650 mg PO Q6HR PRN #30 tab 07/27/19 Rx Doxycycline [Vibramycin] 100 mg PO BID 5 Days #10 capsule 07/27/19 Rx Furosemide [Lasix] 20 mg PO DAILY@1430 PRN 07/27/19 07/27/19 History Insulin NPH Hum/Reg Insulin Hm 40 unit SQ BID 07/27/19 07/27/19 History [NovoLIN 70-30 100 UNIT/ML VIAL] Allergies Allergy/AdvReac Type Severity Reaction Status Date / Time morphine AdvReac Nausea & Verified 07/27/19 09:53 Vomiting Penicillins AdvReac Nausea & Verified 07/27/19 09:53 Vomiting Physical Exam Vitals: Vital Signs Temp Pulse Pulse Resp BP BP Pulse Ox 07/27/19 12:27 97.3 F L 50 L 17 146/64 96 07/27/19 07:38 95 07/27/19 04:45 97.8 F 63 16 163/70 94 L 07/27/19 00:46 169/74 07/27/19 00:20 60 183/74 07/26/19 23:00 96.2 F L 65 16 189/77 96 07/26/19 21:08 98.1 F 62 18 140/85 99 07/26/19 19:58 55 L 18 191/71 97 07/26/19 17:05 98.7 F 54 L 18 133/76 97 Intake and Output 07/26/19 07/27/19 07/27/19 22:59 06:59 14:59 Other: Voiding Method Bedside Commode Bedside Commode # Voids 1 4 # Bowel Movements 0 Weight 90.718 kg PHYSICAL EXAMINATION: GENERAL: The patient is alert and oriented x3, not in any acute distress. Well developed, well nourished. HEENT: Pupils are round and equally reacting to light. EOMI. No scleral icterus. No conjunctival pallor. Normocephalic, atraumatic. No pharyngeal erythema. No thyromegaly. CARDIOVASCULAR: S1 and S2 present. No murmurs, rubs, or gallops. PULMONARY: Chest is clear to auscultation, no wheezing or crackles. ABDOMEN: Soft, nontender, nondistended, normoactive bowel sounds. No palpable organomegaly. MUSCULOSKELETAL: No joint swelling or deformity. EXTREMITIES: No cyanosis, clubbing, very minimal edema in both legs. There is a small ulcer in the right leg mendoza area with surrounding redness NEUROLOGICAL: Gross neurological examination did not reveal any focal deficits. SKIN: As mentioned above Results CBC & Chem 7: 07/26/19 17:10 07/26/19 17:10 Labs: Abnormal Lab Results - Last 24 Hours (Table) 07/26/19 07/26/19 07/26/19 Range/Units 17:10 17:10 17:10 RBC 3.78 L (3.80-5.40) m/uL D-Dimer 4.85 H (<0.60) mg/L FEU Carbon Dioxide 32 H (22-30) mmol/L BUN 19 H (7-17) mg/dL Creatinine 1.06 H (0.52-1.04) mg/dL Glucose 167 H (74-99) mg/dL POC Glucose (mg/dL) (75-99) mg/dL Alkaline Phosphatase 127 H (38-126) U/L Urine Appearance (Clear) Ur Leukocyte Esterase (Negative) Urine RBC (0-5) /hpf Urine WBC (0-5) /hpf Urine Bacteria (None) /hpf Hyaline Casts (0-2) /lpf Urine Mucus (None) /hpf 07/26/19 07/27/19 Range/Units 17:35 07:02 RBC (3.80-5.40) m/uL D-Dimer (<0.60) mg/L FEU Carbon Dioxide (22-30) mmol/L BUN (7-17) mg/dL Creatinine (0.52-1.04) mg/dL Glucose (74-99) mg/dL POC Glucose (mg/dL) 143 H (75-99) mg/dL Alkaline Phosphatase (38-126) U/L Urine Appearance Cloudy H (Clear) Ur Leukocyte Esterase Large H (Negative) Urine RBC 6 H (0-5) /hpf Urine WBC 50 H (0-5) /hpf Urine Bacteria Rare H (None) /hpf Hyaline Casts 10 H (0-2) /lpf Urine Mucus Rare H (None) /hpf Microbiology - Last 24 Hours (Table) 07/26/19 17:35 Urine Culture - Preliminary Urine,Voided Thrombosis Risk Factor Assmnt - Choose All That Apply Any of the Below Risk Factors Present?: Yes Each Factor Represents 1 point: Obesity (BMI >25), Swollen legs (current) Other Risk Factors: Yes Each Risk Factor Represents 3 Points: Age 75 years or older Other congenital or acquired thrombophilia - If yes, enter type in comment: No Thrombosis Risk Factor Assessment Total Risk Factor Score: 5 Thrombosis Risk Factor Assessment Level: High Risk Assessment and Plan Plan: -Bilateral lower leg edema: Venous stasis patient will be given some provided treatment along with compression socks because of the poor renal function I'll not be aggressive in diuresing the patient. Patient renal function is b orderline with serum creatinine of around 1.1 her baseline should be below 0.5. Patient's home dose of Lasix will be continued patient will be discharged to discharge to rule out PE and DVT. No further workup or intervention is necessary at this time. Patient does not have any evidence of CHF exacerbation of CHF at this time. -Asymptomatic bacteriuria will not require any antibiotics small ulcer stage II with possible small area of cellulitis in the mendoza area doxycycline as mentioned above - hypertension -As well without any acute attacks of which Haven't type 2 diabetes mellitus does improve her home regimen -Hypothyroidism -Recent fracture for which patient is on 2 nonsteroidal anti-inflammatories ibuprofen will be dyspnea patient can continue her tramadol initially will add Tylenol for pain Patient will be discharged today.
--- NOTE | 2019-07-27 13:05 | P.DS ---
Providers Date of admission: 07/26/19 20:29 Attending physician: Job Hopkins Primary care physician: [facility] Course: Please refer to HPI for further details Patient Condition at Discharge: Fair Plan - Discharge Summary Discharge Rx Participant: No New Discharge Prescriptions: New Acetaminophen Tab [Tylenol] 650 mg PO Q6HR PRN #30 tab PRN Reason: Mild Pain Or Fever > 100.5 Doxycycline [Vibramycin] 100 mg PO BID 5 Days #10 capsule Continue Cholecalciferol [Vitamin D3 (25 Mcg = 1000 Iu)] 1,000 unit PO TID Aspirin 81 mg PO DAILY Potassium Chloride [Klor-Con 20] 20 meq PO DAILY Levothyroxine Sodium [Synthroid] 125 mcg PO DAILY Isosorbide Mononitrate [Isosorbide Mononitrate ER] 30 mg PO DAILY Furosemide [Lasix] 20 mg PO DAILY Atenolol 100 mg PO DAILY Vit C/E/Zn/Coppr/Lutein/Zeaxan [Preservision Areds 2 Softgel] 1 cap PO BID Ipratropium-Albuterol Nebulize [Duoneb 0.5 mg-3 mg/3 ml Soln] 3 ml INHALATION RT-TID PRN ampul.neb PRN Reason: Shortness Of Breath Or Wheezing traMADol HCL [Ultram] 50 mg PO Q6H PRN PRN Reason: Pain Furosemide [Lasix] 20 mg PO DAILY@1430 PRN PRN Reason: Edema Insulin NPH Hum/Reg Insulin Hm [NovoLIN 70-30 100 UNIT/ML VIAL] 40 unit SQ BID Discontinued aMILoride-HCTZ 5-50 mg [Moduretic 5-50] 1 tab PO DAILY Ibuprofen 800 mg PO TID PRN #90 tablet PRN Reason: Pain Discharge Medication List Aspirin 81 mg PO DAILY 10/26/17 [History] Atenolol 100 mg PO DAILY 10/26/17 [History] Cholecalciferol [Vitamin D3 (25 Mcg = 1000 Iu)] 1,000 unit PO TID 10/26/17 [History] Furosemide [Lasix] 20 mg PO DAILY 10/26/17 [History] Isosorbide Mononitrate [Isosorbide Mononitrate ER] 30 mg PO DAILY 10/26/17 [History] Levothyroxine Sodium [Synthroid] 125 mcg PO DAILY 10/26/17 [History] Potassium Chloride [Klor-Con 20] 20 meq PO DAILY 10/26/17 [History] Vit C/E/Zn/Coppr/Lutein/Zeaxan [Preservision Areds 2 Softgel] 1 cap PO BID 05/17/19 [History] Ipratropium-Albuterol Nebulize [Duoneb 0.5 mg-3 mg/3 ml Soln] 3 ml INHALATION RT-TID PRN ampul.neb 05/21/19 [Rx] traMADol HCL [Ultram] 50 mg PO Q6H PRN 05/22/19 [History] Acetaminophen Tab [Tylenol] 650 mg PO Q6HR PRN #30 tab 07/27/19 [Rx] Doxycycline [Vibramycin] 100 mg PO BID 5 Days #10 capsule 07/27/19 [Rx] Furosemide [Lasix] 20 mg PO DAILY@1430 PRN 07/27/19 [History] Insulin NPH Hum/Reg Insulin Hm [NovoLIN 70-30 100 UNIT/ML VIAL] 40 unit SQ BID 07/27/19 [History] Follow up Appointment(s)/Referral(s): Neyamr Mcgill DO [Primary Care Provider] - 3 Days
[2019-07-27 17:33] LABS: Glucose,Whole Blood 182 mg/dL (75-99)
== END 2019-07-27 18:15 | disposition home health service (06) ==
LOC: EC 17:01 → 3NMEDONC 20:29
PROVIDERS: ADMIT Internal Medicine; ATTEND Internal Medicine
DX: E86.0 Dehydration (principal); N28.9 Disorder of kidney and ureter, unspecified; N39.0 Urinary tract infection, site not specified; I87.8 Other specified disorders of veins; L03.90 Cellulitis, unspecified; J45.909 Unspecified asthma, uncomplicated; R79.1 Abnormal coagulation profile; I10 Essential (primary) hypertension; E11.9 Type 2 diabetes mellitus without complications; M06.9 Rheumatoid arthritis, unspecified; E89.0 Postprocedural hypothyroidism; Z90.49 Acquired absence of other specified parts of digestive tract; Z90.710 Acquired absence of both cervix and uterus; Z79.82 Long term (current) use of aspirin; Z79.890 Hormone replacement therapy; Z79.4 Long term (current) use of insulin; Z79.899 Other long term (current) drug therapy; Z88.5 Allergy status to narcotic agent; Z88.0 Allergy status to penicillin; Z79.891 Long term (current) use of opiate analgesic
CPT/HCPCS: 96361 ×3; 96375 ×2; 96374; 99285; 36415; 94760; 93005; 85379; 83880; 80053; 82550; 83605; 83735; 84443; 84484; 85025; 85610; 85730; 81001; 87040; 87086; 71046; 93970; 71275; G0378 ×2; J0360; J1940; J0696; Q9967